=== PATIENT | male | born 1955 | race Caucasian/White ===

== ENCOUNTER 2021-08-22 11:56 | Inpatient (IN) | payer OTHER, SELFPAY ==
[2021-08-22] VITALS (11 sets, daily range): BP systolic 91–154; BP diastolic 48–86; PULSE 96–131; RESP 16–33; TEMP 33.6–37.6; O2SAT 92–98; BMI 25.8; BMI 23.7
--- NOTE | ~2021-08-22 | CT_ITS ---
EXAMINATION: CT CHEST, ABDOMEN AND PELVIS WITH CONTRAST. CLINICAL INFORMATION: Abdominal pain, lactic acid elevated. COMPARISON: None TECHNIQUE: 5 mm thin axial and reformatted 3 mm thin sagittal and coronal images of chest, abdomen and pelvis were obtained following IV 100 and Omnipaque 350. DLP [id number] FINDINGS: Chest: Bilateral apical pleural thickening. There is a small bilateral apical pleural thickening is mild centrilobular emphysema. There is no acute consolidation, pulmonary nodule or mass. There is minimal subpleural atelectatic changes left lung base. Mediastinum: The thyroid lobes are symmetrical and normal. Central trachea and the bronchi widely patent. Heart size and the great vessels are normal caliber. There are several shotty lymph nodes in the pretracheal and paratracheal space with largest lymph node measuring 1.2 cm pretracheal space. There are coronary artery calcifications. The heart size is normal. No pericardial effusion seen. Pleura: There is calcified pleural plaque. No pleural effusion or thickening seen. There is no pneumothorax. Axilla: There are small shotty bilateral axillary lymph nodes with largest lymph node measures 1.2 cm in right axillary space and 1.3 cm left axillary space. The chest wall appears unremarkable. Liver: The liver is lobulated but normal size. There is small linear lucency seen in the left hepatic lobe suggestive of either underlying biliary duct dilatation or multiple lesions. The right hepatic lobe is normal. The gallbladder is nondistended with moderate kervin gallbladder fluid collection. There are no radiopaque gallstones. The CBD measures a 1 cm. Spleen: Unremarkable. Pancreas: Unremarkable. Kidneys and ureters: Both kidneys are normal size, shape and position. No radiopaque renal calculi or hydronephrosis seen. There is mild bilateral perinephric stranding. Adrenal glands: Unremarkable. Abdominal aorta: There is mild arthroscopic calcification abdominal aorta without aneurysmal dilatation. GI tract: There is moderate stool and gas seen throughout the colon without any significant distention. The small bowel loops are normal caliber. No free air or free fluid seen. Appendix is normal caliber. Pelvis: The bladder is distended. Prostate is normal size. No free fluid seen. Osseous structures: There are degenerative disc changes L4-L5 and L5-S1 disc levels with moderate ventral and mild posterior spondylosis. A large bridging osteophyte is seen at the L5-S1 disc level. There is small Tarlov cyst posterior to S3 vertebra. CT/CT abdomen pelvis w con IMPRESSION: Centrilobular emphysema without acute process. There is minimal subpleural atelectatic changes left lung base. There are calcified pleural plaques from asbestosis exposure. Lobulated liver contour with abnormal appearing left hepatic lobe. There are multiple hypodense lesions question dilated ducts versus small micronodules. Recommend ultrasound. The CBD measures 1 cm. Abnormal gallbladder. Question acalculus cholecystitis. Correlate with ultrasound.
--- NOTE | ~2021-08-22 | US_ITS ---
EXAMINATION: US ABDOMEN LIMITED, gallbladder only CLINICAL INFORMATION: Right upper quadrant pain. COMPARISON: None TECHNIQUE: Real-time imaging of the gallbladder. FINDINGS: GALLBLADDER: The gallbladder wall is thickened to a diameter of 1.1 cm. There is fluid in the wall. There is a small volume of pericholecystic fluid is well. Positive ultrasound Teran's sign. No gallstones present. Findings consistent with an acalculus acute cholecystitis. US/US abdomen limited IMPRESSION: Abnormal gallbladder wall without gallstones. Findings consistent with acalculus cholecystitis. HIDA scan may be helpful for further evaluation.
--- NOTE | ~2021-08-22 | MR_ITS ---
EXAMINATION: MR ABDOMEN WITHOUT AND WITH CONTRAST CLINICAL INFORMATION: Acalculus cholecystitis. CBD stone. Liver abscess. COMPARISON: Ultrasound and CT 08/22/2021 TECHNIQUE: MR abdomen was performed without and with use of 8 mL intravenous Gadavist gadolinium contrast. Postcontrast images are performed in multiphase dynamic sequences. Imaging was performed in 3 planes. Heavily T2-weighted MRCP images were obtained as well. FINDINGS: LUNG BASES: Sternal wires. Normal heart size. No pleural effusion. No focal consolidation. LIVER, GALLBLADDER, AND BILIARY TREE: Corresponding to the heterogeneous enhancement in the left lobe of the liver, there are numerous well-circumscribed clustered T2 bright homogeneous T2 hyperintense, hypointense T1, nonenhancing simple appearing cysts. There is no peripheral enhancement. No central dot sign . No definite communication with the biliary tree but they do seem to have a somewhat linear and branching appearance on sagittal and coronal images. There are a few subcentimeter cysts in the right lobe of the liver, scattered, far fewer than seen in the left lobe The gallbladder is diffusely thick-walled with pericholecystic fluid. There are T2 bright structures of the fundus of the gallbladder which may represent superimposed adenomyomatosis. Common bile duct is at most 6 mm in diameter, within normal limits. No filling defect to suggest choledocholithiasis. No intrahepatic biliary ductal dilatation. Small volume of ascites is seen adjacent the liver and in the right pararenal space. PANCREAS: Atrophic pancreas. The pancreatic duct is normal in caliber. No peripancreatic fluid or inflammatory changes. SPLEEN: Normal. ADRENAL GLANDS: Normal. KIDNEYS AND URETERS: The kidneys are normal in size, shape, and enhance symmetrically. No hydronephrosis. No perinephric stranding. GASTROINTESTINAL TRACT: Stomach and visualized small bowel are nondilated. No colonic wall thickening or distention. ABDOMINAL WALL: No significant hernia is appreciated. LYMPH NODES: No lymphadenopathy. VASCULAR: Unremarkable. OSSEOUS STRUCTURES: Marrow signal normal. MR/MR abdomen wo/w con IMPRESSION: The gallbladder is circumferentially thick-walled with adjacent pericholecystic fluid. Acalculous cholecystitis remains a consideration. No biliary ductal dilatation. No choledocholithiasis. In addition to a few scattered subcentimeter cysts in the right lobe of liver, there is a cluster of numerous cystic structures in the superior aspect of the left lobe of liver. These do not appear to communicate with the biliary tree suggesting clustered cysts or biliary hamartomas rather than a biliary etiology. These do not have ill-defined margins or peripheral enhancement that would be expected for microabscesses.
[2021-08-22 12:21] LABS: Glucose, Whole Blood 323 mg/dL (60-115)
--- NOTE | 2021-08-22 12:22 | ECG_ITS ---
Test Reason : ABDOMINAL PAIN Blood Pressure : / mmHG Vent. Rate : 091 BPM Atrial Rate : 091 BPM P-R Int : 162 ms QRS Dur : 128 ms QT Int : 408 ms P-R-T Axes : 063 -21 095 degrees QTc Int : 501 ms Normal sinus rhythm Non-specific intra-ventricular conduction block Nonspecific T wave abnormality Abnormal ECG No previous ECGs available Referred By: Robert Biswas Electronically Signed By:JUDY ALEXANDRE
--- NOTE | 2021-08-22 12:44 | ED.ABDPAIN ---
HPI - Abdominal Pain General Chief Complaint: Abdominal Pain Stated Complaint: ABD PAIN X'S 2 DAYS Time Seen by Provider: 08/22/21 12:14 Source: patient Mode of arrival: ambulatory Limitations: no limitations History of Present Illness HPI narrative: Patient past medical history of alcohol abuse and diabetes and GERD presents to the ED to ED for mid abdominal pain with nausea vomiting for 2 days. Denies any diarrhea, lower abdominal pain, fever, or chills. Patient denies any dysuria, hematuria, flank pain, chest pain, shortness of breath. Patient states he is vaccinated against COVID. Patient denies any URI symptoms MD elicited complaint: abdominal pain Related Data Allergies Allergy/AdvReac Type Severity Reaction Status Date / Time No Known Allergies Allergy Verified 08/22/21 12:22 Review of Systems Review of Systems Yes all other systems are reviewed and are negative Constitutional: Reports as per HPI and Reports no additional constitutional complaints Eyes: Reports as per HPI and Reports no additional eye complaints Reports system reviewed and no additional complaints, except as documented and Reports as per HPI Cardiovascular: Reports as per HPI and Reports no additional cardiovascular complaints Respiratory: Reports as per HPI and Reports no additional respiratory complaints Gastrointestinal: Reports as per HPI, Reports no additional gastrointestinal complaints and Reports abdominal pain Musculoskeletal: Reports no additional musculoskeletal complaints and Reports as per HPI Reports system reviewed and no additional complaints, except as documented and Reports as per HPI Psychiatric: Reports no additional psychiatric complaints and Reports as per HPI Physical Exam Vital Signs: Vital Signs: Last Vital Signs Temp 98.2 F 08/22/21 16:23 Pulse 131 H 08/22/21 18:15 Resp 17 08/22/21 16:23 BP 139/77 08/22/21 14:46 Pulse Ox 95 08/22/21 16:23 Body Mass Index 25.8 Const: General: cooperative, healthy appearing, comfortable, no acute distress, well developed, alert, awake and Physically active Orientation/consciousness: patient oriented x3 HENMT: Head: Yes normal to inspection, Yes No palpable skull fracture present, Yes normocephalic, Yes atraumatic and No abrasion Eyes: General: appearance normal, both eyes and all related structures Neck: Neck: Yes normal visual inspection, Yes full ROM, Yes no lymphadenopathy, Yes no meningeal signs, Yes trachea midline, Yes supple and No tender Chest: Chest palpation & inspection: normal inspection of the chest and normal palpation of entire chest wall Resp: Effort & Inspection: normal respiratory effort and able to speak in complete sentences Cardio: Jugular venous distension: no JVD Heart sounds: S1 normal heart sound present and S2 normal heart sound present GI: Inspection: Yes normal to inspection and No abdominal wall ecchymosis Palpation (GI): Soft to palpation, not firm, Tenderness to palpation present (GI) in the epigastrum; Negative for not in the LLQ, not in the RLQ, not in the LUQ, not in the RUQ, not at McBurney's point, not periumbilically, not suprapubicly, Teran's sign negative, obturator sign negative, psoas sign negative, with no rebound tenderness and Rovsing's sign negative, no guarding and not rigid : General: No CVA tenderness and Yes no CVA tenderness Back/Spine/Pelvis: Back: no CVA tenderness, No CVA tenderness and No back tenderness Skin: General skin exam: no rashes or lesions noted and elasticity normal Neuro: General: patient oriented x3, gait normal, no meningeal signs and CN's II-XI intact bilaterally Cranial nerves: Yes CN's II-XII intact bilaterally Extrem: General: Yes normal to inspection and Yes full ROM Psych: Appearance: grossly normal, well kempt and not disheveled Course Course Course Narrative: Patient hypothermic. By accident another patient's ABG results were placed in Mr. Castaneda records. This is not his ABG results. Patient is hypothermic. ABG results belong to [facility]. Patient is hypothermic with abdominal pain. Patient will be treated as septic. Labs including blood culture lactate acid ordered. Zosyn ordered. Fluids ordered. Patient placed on Liza Hugger. Rectal exam patient is 92 point F. EKG negative STEMI Reevaluation(s) Reevaluation #1: Patient will hypothermic, septic, elevated lactate, elevated white blood cell count. Patient was given Zosyn and sent for CT scan. Time: 13:12 Reevaluation #2: Spoke with Dr. Bowling of surgery states presently does no surgical indication and this may be more cholangitis but patient will need hospital admission to medicine with GI consult. Spoke with Dr. Arshad of gastroenterology who recommends MRI/MRCP of the abdomen to rule out any liver abscesses or common bile duct dilatation. Patient no longer hypothermic. Patient tachycardic. Other bag of fluid ordered. Patient is not in any distress. Time: 18:47 MDM - Abdominal Pain MDM Narrative Medical decision making narrative: Acalculous cholecystitis Lab Data Result diagrams: 08/22/21 13:12 08/22/21 13:12 Labs: Lab Results 08/22/21 08/22/21 08/22/21 Range/Units 12:06 12:11 12:17 WBC (4.8-10.8) X10*3/uL RBC (4.60-5.80) X10*6/uL Hgb (14.0-18.0) g/dl Hct (42-52) % MCV (80-98) fL MCH (27.0-33.0) pg MCHC (31.0-36.0) g/dl RDW (11.0-16.0) % Plt Count (160-400) X10*3/uL MPV Immature Gran % (Auto) (0.0-0.4) % Neut % (Auto) (45-73) % Lymph % (Auto) (20-40) % [place] % (Auto) (2-11) % Eos % (Auto) (0-4) % Baso % (Auto) (0-2) % Lymph # (Auto) (1.2-4.9) X10*3/uL [place] # (Auto) (0.1-1.2) X10*3/uL Eos # (Auto) (0.0-0.4) X10*3/uL Baso # (Auto) (0.0-0.2) X10*3/uL Abs Immat Gran (auto) (0.00-0.03) X10*3/uL Absolute Neuts (auto) (2.0-8.3) X10*3/uL Absolute Nucleated RBC (0.0-0.012) X10*3/uL Nucleated RBC % (auto) (0.0-0.2) /100WBC Smear Tech's Comments O2 Saturation Cancelled TNP ABG pH at Pt Temp Cancelled TNP ABG pH (Temp Correct) Cancelled TNP ABG pCO2 at Pt Temp Cancelled TNP ABG pCO2 (Temp Corrct Cancelled TNP ABG pO2 at Pt Temp Cancelled TNP ABG pO2 (Temp Correct Cancelled TNP ABG HCO3 Cancelled TNP ABG Base Excess (Actual) Cancelled TNP Sodium Potassium Chloride Carbon Dioxide Anion Gap BUN Creatinine Estim Creat Clear Calc Estimated GFR POC Glucose 323 H (60-115) mg/dL Random Glucose Lactic Acid (0.5-2.0) mmol/L Lactic Acid Fup @ 2Hr (0.5-2.0) mmol/L Calcium Magnesium (1.6-2.6) mg/dL Total Bilirubin Direct Bilirubin AST ALT Alkaline Phosphatase Troponin I High Sens (<3.5-35.0) ng/L B-Natriuretic Peptide (<100) pg/mL Total Protein Albumin Lipase Urine Color Urine Appearance Urine pH (5.0-8.0) Ur Specific [place] (1.005-1.025) Urine Protein (NEG-TRACE) MG/DL Urine Glucose (UA) (NEG) MG/DL Urine Ketones (NEG) MG/DL Urine Blood (NEG) Urine Nitrite (NEG) Ur Leukocyte Esterase (NEG) Urine RBC (0) /HPF Urine WBC (0-4) /HPF Ur Squamous Epith Cells /LPF Amorphous Sediment /LPF Urine Bacteria /LPF Acetone, Qual Coronavirus (PCR) (Negative) Influenza Type A (PCR) (Negative) Influenza Type B (PCR) (Negative) RSV RNA Qual (PCR) (Negative) 08/22/21 08/22/21 08/22/21 Range/Units 13:12 13:12 13:12 WBC 27.5 H (4.8-10.8) X10*3/uL RBC 5.20 (4.60-5.80) X10*6/uL Hgb 16.7 (14.0-18.0) g/dl Hct 47.8 (42-52) % MCV 91.9 (80-98) fL MCH 32.1 (27.0-33.0) pg MCHC 34.9 (31.0-36.0) g/dl RDW 12.9 (11.0-16.0) % Plt Count 176 (160-400) X10*3/uL MPV Not Reportable Immature Gran % (Auto) 0.6 H (0.0-0.4) % Neut % (Auto) 88.0 H (45-73) % Lymph % (Auto) 4.1 L (20-40) % [place] % (Auto) 7.0 (2-11) % Eos % (Auto) 0.0 (0-4) % Baso % (Auto) 0.3 (0-2) % Lymph # (Auto) 1.1 L (1.2-4.9) X10*3/uL [place] # (Auto) 1.9 H (0.1-1.2) X10*3/uL Eos # (Auto) 0.0 (0.0-0.4) X10*3/uL Baso # (Auto) 0.1 (0.0-0.2) X10*3/uL Abs Immat Gran (auto) 0.17 H (0.00-0.03) X10*3/uL Absolute Neuts (auto) 24.2 H (2.0-8.3) X10*3/uL Absolute Nucleated RBC 0.000 (0.0-0.012) X10*3/uL Nucleated RBC % (auto) 0.0 (0.0-0.2) /100WBC Smear Tech's Comments VERIFIED O2 Saturation ABG pH at Pt Temp ABG pH (Temp Correct) ABG pCO2 at Pt Temp ABG pCO2 (Temp Corrct ABG pO2 at Pt Temp ABG pO2 (Temp Correct ABG HCO3 ABG Base Excess (Actual) Sodium Cancelled Potassium Cancelled Chloride Cancelled Carbon Dioxide Cancelled Anion Gap Cancelled BUN Cancelled Creatinine Cancelled Estim Creat Clear Calc Cancelled Estimated GFR Cancelled POC Glucose (60-115) mg/dL Random Glucose Cancelled Lactic Acid (0.5-2.0) mmol/L Lactic Acid Fup @ 2Hr (0.5-2.0) mmol/L Calcium Cancelled Magnesium (1.6-2.6) mg/dL Total Bilirubin Cancelled Direct Bilirubin Cancelled AST Cancelled ALT Cancelled Alkaline Phosphatase Cancelled Troponin I High Sens 9.2 (<3.5-35.0) ng/L B-Natriuretic Peptide 43 (<100) pg/mL Total Protein Cancelled Albumin Cancelled Lipase Cancelled Urine Color Urine Appearance Urine pH (5.0-8.0) Ur Specific [place] (1.005-1.025) Urine Protein (NEG-TRACE) MG/DL Urine Glucose (UA) (NEG) MG/DL Urine Ketones (NEG) MG/DL Urine Blood (NEG) Urine Nitrite (NEG) Ur Leukocyte Esterase (NEG) Urine RBC (0) /HPF Urine WBC (0-4) /HPF Ur Squamous Epith Cells /LPF Amorphous Sediment /LPF Urine Bacteria /LPF Acetone, Qual Cancelled Coronavirus (PCR) (Negative) Influenza Type A (PCR) (Negative) Influenza Type B (PCR) (Negative) RSV RNA Qual (PCR) (Negative) 08/22/21 08/22/21 08/22/21 Range/Units 13:12 13:12 13:12 WBC (4.8-10.8) X10*3/uL RBC (4.60-5.80) X10*6/uL Hgb (14.0-18.0) g/dl Hct (42-52) % MCV (80-98) fL MCH (27.0-33.0) pg MCHC (31.0-36.0) g/dl RDW (11.0-16.0) % Plt Count (160-400) X10*3/uL MPV Immature Gran % (Auto) (0.0-0.4) % Neut % (Auto) (45-73) % Lymph % (Auto) (20-40) % [place] % (Auto) (2-11) % Eos % (Auto) (0-4) % Baso % (Auto) (0-2) % Lymph # (Auto) (1.2-4.9) X10*3/uL [place] # (Auto) (0.1-1.2) X10*3/uL Eos # (Auto) (0.0-0.4) X10*3/uL Baso # (Auto) (0.0-0.2) X10*3/uL Abs Immat Gran (auto) (0.00-0.03) X10*3/uL Absolute Neuts (auto) (2.0-8.3) X10*3/uL Absolute Nucleated RBC (0.0-0.012) X10*3/uL Nucleated RBC % (auto) (0.0-0.2) /100WBC Smear Tech's Comments O2 Saturation ABG pH at Pt Temp ABG pH (Temp Correct) ABG pCO2 at Pt Temp ABG pCO2 (Temp Corrct ABG pO2 at Pt Temp ABG pO2 (Temp Correct ABG HCO3 ABG Base Excess (Actual) Sodium 138 Potassium 3.6 Chloride 97 Carbon Dioxide 15 L Anion Gap 30 H BUN 20 H Creatinine 1.02 Estim Creat Clear Calc 68.9 Estimated GFR > 60 POC Glucose (60-115) mg/dL Random Glucose 327 H Lactic Acid 4.1 H* (0.5-2.0) mmol/L Lactic Acid Fup @ 2Hr (0.5-2.0) mmol/L Calcium 10.0 Magnesium 1.7 (1.6-2.6) mg/dL Total Bilirubin 3.1 H Direct Bilirubin 2.6 H AST 1109 H ALT 558 H Alkaline Phosphatase 225 H Troponin I High Sens (<3.5-35.0) ng/L B-Natriuretic Peptide (<100) pg/mL Total Protein 7.5 Albumin 4.4 Lipase 1003 H Urine Color Urine Appearance Urine pH (5.0-8.0) Ur Specific [place] (1.005-1.025) Urine Protein (NEG-TRACE) MG/DL Urine Glucose (UA) (NEG) MG/DL Urine Ketones (NEG) MG/DL Urine Blood (NEG) Urine Nitrite (NEG) Ur Leukocyte Esterase (NEG) Urine RBC (0) /HPF Urine WBC (0-4) /HPF Ur Squamous Epith Cells /LPF Amorphous Sediment /LPF Urine Bacteria /LPF Acetone, Qual Small H Coronavirus (PCR) NEGATIVE (Negative) Influenza Type A (PCR) NEGATIVE (Negative) Influenza Type B (PCR) NEGATIVE (Negative) RSV RNA Qual (PCR) NEGATIVE (Negative) 08/22/21 08/22/21 Range/Units 14:04 15:54 WBC (4.8-10.8) X10*3/uL RBC (4.60-5.80) X10*6/uL Hgb (14.0-18.0) g/dl Hct (42-52) % MCV (80-98) fL MCH (27.0-33.0) pg MCHC (31.0-36.0) g/dl RDW (11.0-16.0) % Plt Count (160-400) X10*3/uL MPV Immature Gran % (Auto) (0.0-0.4) % Neut % (Auto) (45-73) % Lymph % (Auto) (20-40) % [place] % (Auto) (2-11) % Eos % (Auto) (0-4) % Baso % (Auto) (0-2) % Lymph # (Auto) (1.2-4.9) X10*3/uL [place] # (Auto) (0.1-1.2) X10*3/uL Eos # (Auto) (0.0-0.4) X10*3/uL Baso # (Auto) (0.0-0.2) X10*3/uL Abs Immat Gran (auto) (0.00-0.03) X10*3/uL Absolute Neuts (auto) (2.0-8.3) X10*3/uL Absolute Nucleated RBC (0.0-0.012) X10*3/uL Nucleated RBC % (auto) (0.0-0.2) /100WBC Smear Tech's Comments O2 Saturation ABG pH at Pt Temp ABG pH (Temp Correct) ABG pCO2 at Pt Temp ABG pCO2 (Temp Corrct ABG pO2 at Pt Temp ABG pO2 (Temp Correct ABG HCO3 ABG Base Excess (Actual) Sodium Potassium Chloride Carbon Dioxide Anion Gap BUN Creatinine Estim Creat Clear Calc Estimated GFR POC Glucose (60-115) mg/dL Random Glucose Lactic Acid (0.5-2.0) mmol/L Lactic Acid Fup @ 2Hr 2.0 (0.5-2.0) mmol/L Calcium Magnesium (1.6-2.6) mg/dL Total Bilirubin Direct Bilirubin AST ALT Alkaline Phosphatase Troponin I High Sens (<3.5-35.0) ng/L B-Natriuretic Peptide (<100) pg/mL Total Protein Albumin Lipase Urine Color YELLOW Urine Appearance CLEAR Urine pH 5.5 (5.0-8.0) Ur Specific [place] 1.010 (1.005-1.025) Urine Protein NEG (NEG-TRACE) MG/DL Urine Glucose (UA) >=1000 H (NEG) MG/DL Urine Ketones 15 (NEG) MG/DL Urine Blood NEG (NEG) Urine Nitrite NEG (NEG) Ur Leukocyte Esterase NEG (NEG) Urine RBC 0 (0) /HPF Urine WBC 0 (0-4) /HPF Ur Squamous Epith Cells TRACE /LPF Amorphous Sediment 1+ /LPF Urine Bacteria NONE /LPF Acetone, Qual Coronavirus (PCR) (Negative) Influenza Type A (PCR) (Negative) Influenza Type B (PCR) (Negative) RSV RNA Qual (PCR) (Negative) ECG Data Interpretation: Normal sinus rhythm. Ventricular rate 91. Pr interval 162. QRS 128. QTC 501. Negative STEMI Critical Care Time Critical Care Time Critical Care Time: Yes Total Critical Care Time: 60 Attestation: Sepsis. Fluids ordered. Zosyn ordered. Surgery and gastroenterology consult ordered. Patient sent for MRI. Discharge Plan Discharge Clinical Impression: Acute acalculous cholecystitis Patient Disposition: Admitted As Inpatient [facility] Past Medical History Medical History (Updated 08/22/21 @ 18:48 by MICHAEL Martin) Diabetes Social History Social History Patient Tobacco Use Status: Current everyday Tobacco user Use of substances other than those prescribed or required for medical reasons: No Advance Directives: No Advance Directives Information Provided: No
[2021-08-22 13:25] LABS: Basophils Absolute Auto 0.1 X10*3/uL (0.0-0.2); Basophils Percent Auto 0.3 % (0-2); Hematocrit 47.8 % (42-52); Hemoglobin 16.7 g/dl (14.0-18.0); Imm Gran Abs Auto 0.17 X10*3/uL (0.00-0.03); Imm Gran Pct Auto 0.6 % (0.0-0.4); Lymphocytes Absolute Auto 1.1 X10*3/uL (1.2-4.9); Lymphocytes Percent Auto 4.1 % (20-40); MANUAL DIFF FLAG SCAN; Mean Corpuscular HGB Conc 34.9 g/dl (31.0-36.0); Mean Corpuscular Hemoglobin 32.1 pg (27.0-33.0); Mean Corpuscular Volume 91.9 fL (80-98); Monocytes Absolute Auto 1.9 X10*3/uL (0.1-1.2); Neutrophils Absolute Auto 24.2 X10*3/uL (2.0-8.3); PLT CLUMP 1; Red Cell Distribution Width 12.9 % (11.0-16.0); SCAN SMEAR FLAG 1
[2021-08-22] MEDS: Piperacillin Sodium/Tazobactam 3.375 GM in 0.9 % Sodium Chloride 50 ML IV ×2 (13:29→21:07)
[2021-08-22] MEDS: 0.9 % Sodium Chloride 1,000 ML 999 ML IV ×3 (13:29→18:15)
[2021-08-22 13:49] LABS: Platelet Count 176 X10*3/uL (160-400); SLIDE REVIEW VERIFIED; White Blood Count 27.5 X10*3/uL (4.8-10.8)
[2021-08-22 13:51] LABS: B Type Natriuretic Peptide 43 pg/mL (<100); Troponin-I High Sensitivity 9.2 ng/L (<3.5-35.0)
[2021-08-22 13:52] LABS: Alanine Aminotransferase 558 U/L (0-40); Albumin Level 4.4 g/dL (3.5-5.0); Alkaline Phosphatase 225 U/L (39-117); Anion Gap 30 (12-20); Aspartate Amino Transferase 1109 U/L (5-37); Bilirubin Direct 2.6 mg/dL (0.0-0.5); Bilirubin Total 3.1 mg/dL (0.0-1.0); Blood Urea Nitrogen 20 mg/dL (9-16); Carbon Dioxide 15 mmol/L (22-29); Chloride 97 mmol/L (96-108); Creatinine Clr Calc Pharmacy 68.9; Estimated Glomerular Filt Rate > 60; Glucose Random 327 mg/dL (60-115); Lipase 1003 U/L (8-78); Magnesium 1.7 mg/dL (1.6-2.6); Potassium 3.6 mmol/L (3.3-5.1); Sodium 138 mmol/L (135-145); Total Protein 7.5 g/dL (6.5-8.0)
[2021-08-22 13:55] LABS: Lactic Acid 4.1 mmol/L (0.5-2.0)
[2021-08-22 13:57] LABS: Acetone, serum QL Small (Negative)
[2021-08-22] MEDS: 0.9 % Sodium Chloride 2,313.33 ML 2313.33 ML IV (14:06)
[2021-08-22 14:31] LABS: Appearance Urine CLEAR; Color Urine YELLOW; Glucose Urine UA >=1000 MG/DL (NEG); Leukocyte Esterase Urine NEG (NEG); Nitrite Urine NEG (NEG); PH 5.5 (5.0-8.0); Urine Blood NEG (NEG); Urine Ketones 15 MG/DL (NEG); Urine Protein NEG (NEG-TRACE)
[2021-08-22 14:34] LABS: Influenza A PCR NEGATIVE (Negative); Influenza B PCR NEGATIVE (Negative); Resp Syncy Virus RNA Qual PCR NEGATIVE (Negative); SARS COV2 PCR INHOUSE NEGATIVE (Negative)
[2021-08-22 14:55] LABS: Amorphous Sediment Urine 1+ /LPF; RBC Urine 0 /HPF (0); Squamous Epithelial Cell Urine TRACE /LPF; WBC Urine 0 /HPF (0-4)
[2021-08-22] MEDS: iohexoL 350 MG/ML 100 ML INFUS..BTL IV (14:58)
[2021-08-22 15:18] LABS: Reflex Lactate? Lactic Acid Added
[2021-08-22] MEDS: ondansetron HCL 4 MG/2 ML VIAL IVPUSH (17:05)
--- NOTE | 2021-08-22 18:15 | PC.NURSE ---
PA aware of elevated HR
--- NOTE | 2021-08-22 19:28 | P.HPHOSP_ITS ---
History of Present Illness Date of Service: 08/22/21 Attending physician on admission: Oliver Cheng Chief Complaint: Abdominal pain 65-year-old gentleman with past medical history significant for diabetes mellitus, hypertension and coronary artery bypass graft 15 years ago presented to [facility] with right-sided abdominal pain that started couple weeks ago pain improved but then reoccurred with worsened pain in last 2-3 days associated with sweating, nausea and vomiting decreased by mouth intake, unable to keep water down, in the emergency room patient noted to have significantly elevated LFTs, elevated lipase and leukocytosis CT abdomen and pelvis consistent with acute acalculous cholecystitis, pancreas unremarkable, abdominal ultrasound also showed changes consistent with cholecystitis, at present patient complaining of persistent abdominal pain and nausea and dry mouth, he denies chest pain, palpitations, shortness of breathy on arrival to emergency room patient was noted to be hypothermic Tachycardic, and tachypneic patient received several IV boluses BP remains s table patient will be admitted to medical floor with a diagnosis of sepsis likely related to gallstone pancreatitis question patient passed stone. Review of Systems Review of Systems: General no headache no dizziness ,sweating. CVS no chest pain, no palpitation. Respiratory no cough no sob. Gastrointestinal nausea ,vomiting, abdominal pain no urinary urgency or frequency Yes all other systems are reviewed and are negative [facility] Medical History Coronary artery disease Diabetes Hypercholesterolemia Hypertension Pertinent family history: Father had heart disease, and mom had diabetes Surgical History History of coronary artery bypass graft x 1 Social History Household Members: None Housing: Apartment Do you presently have visiting nurse or other home services: No Unable to assess alcohol history related to: Unknown Patient Tobacco Use Status: Former Tobacco user Quit Date: 08/19/2021 Tobacco use type: Cigarette Cigarette Packs Per Day: 1 Cigarettes Per Day: 20 Years Smoked: 40 service: Yes Current occupational status: retired Recent Out of Country Travel Within the Last 8 Weeks: No Meds Allergies Allergy/AdvReac Type Severity Reaction Status Date / Time No Known Allergies Allergy Verified 08/22/21 12:22 Active Medications: Current Medications Dextrose (Dextrose 50 % 25 Gm/50 Ml Vial) 25 gm IVPUSH Q15M PRN; Protocol PRN Reason: per Hypoglycemia Standing Ord. Glucose (Glucose Gel 15 Gm Gel..Gram.) 15 gm PO Q15M PRN; Protocol PRN Reason: per Hypoglycemia Standing Ord. Piperacillin Sod/Tazobactam (Sod 3.375 gm/ Sodium Chloride) 50 mls @ 100 mls/hr IV Q6H [place] Sodium Chloride (Ns) 1,000 mls @ 150 mls/hr IVCONT .Q6H40M [facility] Insulin Human Lispro (Insulin Lispro 100 Unit/Ml 3 Ml Vial) 0 unit SUBCUT Q6H [facility]; Protocol Melatonin (Melatonin 3 Mg Tablet) 3 mg PO BEDTIME PRN PRN Reason: Insomnia Morphine Sulfate (Morphine Sulfate 4 Mg/Ml Cartridge) 3 mg IVPUSH Q4H PRN; Protocol PRN Reason: Pain, Severe (Pain Scale 7-10) Ondansetron HCl (Ondansetron Hcl 4 Mg/2 Ml Vial) 4 mg IVPUSH Q8H PRN PRN Reason: Nausea and Vomiting Sodium Chloride (0.9 % Sodium Chloride Flush 3 Ml Syringe) 3 ml IVFLUSH QSHIFT [facility] Home Medications Medication Instructions Recorded Confirmed Last Taken Type albuterol sulfate 90 mcg/actuation 2 puff INHALATION Q6H PRN 08/22/21 08/22/21 Unknown History aerosol inhaler aspirin 81 mg chewable tablet 81 mg PO DAILY 08/22/21 08/22/21 Unknown History atorvastatin 80 mg tablet 80 mg PO BEDTIME 08/22/21 08/22/21 Unknown History empagliflozin 25 mg tablet 12.5 mg PO DAILY 08/22/21 08/22/21 Unknown History insulin glargine 100 unit/mL (3 40 unit SUBCUT BEDTIME 08/22/21 08/22/21 Unknown History mL) subcutaneous pen lisinopril 2.5 mg tablet 2.5 mg PO DAILY 08/22/21 08/22/21 Unknown History metformin 1,000 mg tablet 1,000 mg PO BID 08/22/21 08/22/21 Unknown History mirtazapine 30 mg tablet 30 mg PO BEDTIME 08/22/21 08/22/21 Unknown History nicotine (polacrilex) 4 mg buccal 4 mg BUCCAL Q2H PRN 08/22/21 08/22/21 Unknown History lozenge omeprazole 20 mg capsule,delayed 20 mg PO DAILY 08/22/21 08/22/21 Unknown History release ramelteon 8 mg tablet 8 mg PO BEDTIME 08/22/21 08/22/21 Unknown History semaglutide 1 mg/dose (4 mg/3 mL) 1 mg SUBCUT QWEEK 08/22/21 08/22/21 Unknown History subcutaneous pen injector thiamine HCl (vitamin B1) 100 mg 100 mg PO DAILY 08/22/21 08/22/21 Unknown History tablet tiotropium bromide 2.5 2 puff INHALATION DAILY 08/22/21 08/22/21 Unknown History mcg/actuation mist for inhalation Physical Exam Vital Signs and Narrative: Vital Signs: Last Vital Signs Temp 99.6 F 08/22/21 19:08 Pulse 119 H 08/22/21 19:08 Resp 33 H 08/22/21 19:08 BP 126/61 08/22/21 19:08 Pulse Ox 92 08/22/21 19:08 Body Mass Index 25.8 General awake alert x3, no acute distress. Eyes icteric sclerae Neck supple no JVD. CVS regular rate rhythm, Respiratory lungs clear to auscultation, no respiratory distress, no wheeze, no rhonchi. Gastrointestinal abdomen obese, soft, tenderness right upper quadrant and mid abdomen, bowel sounds audible, no guarding , no rigidity. Extremities no clubbing cyanosis or edema. Good peripheral pulses Neuro nonfocal speech clear. Skin no rash Psych appropriate affect Results Labs CBC and Chem 7: 08/26/21 05:46 08/26/21 05:46 Labs: Laboratory Results - last 24 hr 08/22/21 08/22/21 08/22/21 12:06 12:11 12:17 MCV MCH MCHC RDW Plt Count MPV Immature Gran % (Auto) Neut % (Auto) Lymph % (Auto) [place] % (Auto) Eos % (Auto) Baso % (Auto) Lymph # (Auto) [place] # (Auto) Eos # (Auto) Baso # (Auto) Abs Immat Gran (auto) Absolute Neuts (auto) Absolute Nucleated RBC Nucleated RBC % (auto) Smear Tech's Comments O2 Saturation Cancelled TNP ABG pH at Pt Temp Cancelled TNP ABG pH (Temp Correct) Cancelled TNP ABG pCO2 at Pt Temp Cancelled TNP ABG pCO2 (Temp Corrct Cancelled TNP ABG pO2 at Pt Temp Cancelled TNP ABG pO2 (Temp Correct Cancelled TNP ABG HCO3 Cancelled TNP ABG Base Excess (Actual) Cancelled TNP Anion Gap Estim Creat Clear Calc Estimated GFR POC Glucose 323 H Random Glucose Lactic Acid Lactic Acid Fup @ 2Hr Calcium Magnesium Total Bilirubin Direct Bilirubin AST ALT Alkaline Phosphatase Troponin I High Sens B-Natriuretic Peptide Total Protein Albumin Lipase Urine Color Urine Appearance Urine pH Ur Specific [place] Urine Protein Urine Glucose (UA) Urine Ketones Urine Blood Urine Nitrite Ur Leukocyte Esterase Urine RBC Urine WBC Ur Squamous Epith Cells Amorphous Sediment Urine Bacteria Acetone, Qual Coronavirus (PCR) Influenza Type A (PCR) Influenza Type B (PCR) RSV RNA Qual (PCR) 08/22/21 08/22/21 08/22/21 13:12 13:12 13:12 MCV 91.9 MCH 32.1 MCHC 34.9 RDW 12.9 Plt Count 176 MPV Not Reportable Immature Gran % (Auto) 0.6 H Neut % (Auto) 88.0 H Lymph % (Auto) 4.1 L [place] % (Auto) 7.0 Eos % (Auto) 0.0 Baso % (Auto) 0.3 Lymph # (Auto) 1.1 L [place] # (Auto) 1.9 H Eos # (Auto) 0.0 Baso # (Auto) 0.1 Abs Immat Gran (auto) 0.17 H Absolute Neuts (auto) 24.2 H Absolute Nucleated RBC 0.000 Nucleated RBC % (auto) 0.0 Smear Tech's Comments VERIFIED O2 Saturation ABG pH at Pt Temp ABG pH (Temp Correct) ABG pCO2 at Pt Temp ABG pCO2 (Temp Corrct ABG pO2 at Pt Temp ABG pO2 (Temp Correct ABG HCO3 ABG Base Excess (Actual) Anion Gap Cancelled Estim Creat Clear Calc Cancelled Estimated GFR Cancelled POC Glucose Random Glucose Cancelled Lactic Acid Lactic Acid Fup @ 2Hr Calcium Cancelled Magnesium Total Bilirubin Cancelled Direct Bilirubin Cancelled AST Cancelled ALT Cancelled Alkaline Phosphatase Cancelled Troponin I High Sens 9.2 B-Natriuretic Peptide 43 Total Protein Cancelled Albumin Cancelled Lipase Cancelled Urine Color Urine Appearance Urine pH Ur Specific [place] Urine Protein Urine Glucose (UA) Urine Ketones Urine Blood Urine Nitrite Ur Leukocyte Esterase Urine RBC Urine WBC Ur Squamous Epith Cells Amorphous Sediment Urine Bacteria Acetone, Qual Cancelled Coronavirus (PCR) Influenza Type A (PCR) Influenza Type B (PCR) RSV RNA Qual (PCR) 08/22/21 08/22/21 08/22/21 13:12 13:12 13:12 MCV MCH MCHC RDW Plt Count MPV Immature Gran % (Auto) Neut % (Auto) Lymph % (Auto) [place] % (Auto) Eos % (Auto) Baso % (Auto) Lymph # (Auto) [place] # (Auto) Eos # (Auto) Baso # (Auto) Abs Immat Gran (auto) Absolute Neuts (auto) Absolute Nucleated RBC Nucleated RBC % (auto) Smear Tech's Comments O2 Saturation ABG pH at Pt Temp ABG pH (Temp Correct) ABG pCO2 at Pt Temp ABG pCO2 (Temp Corrct ABG pO2 at Pt Temp ABG pO2 (Temp Correct ABG HCO3 ABG Base Excess (Actual) Anion Gap 30 H Estim Creat Clear Calc 68.9 Estimated GFR > 60 POC Glucose Random Glucose 327 H Lactic Acid 4.1 H* Lactic Acid Fup @ 2Hr Calcium 10.0 Magnesium 1.7 Total Bilirubin 3.1 H Direct Bilirubin 2.6 H AST 1109 H ALT 558 H Alkaline Phosphatase 225 H Troponin I High Sens B-Natriuretic Peptide Total Protein 7.5 Albumin 4.4 Lipase 1003 H Urine Color Urine Appearance Urine pH Ur Specific [place] Urine Protein Urine Glucose (UA) Urine Ketones Urine Blood Urine Nitrite Ur Leukocyte Esterase Urine RBC Urine WBC Ur Squamous Epith Cells Amorphous Sediment Urine Bacteria Acetone, Qual Small H Coronavirus (PCR) NEGATIVE Influenza Type A (PCR) NEGATIVE Influenza Type B (PCR) NEGATIVE RSV RNA Qual (PCR) NEGATIVE 08/22/21 08/22/21 14:04 15:54 MCV MCH MCHC RDW Plt Count MPV Immature Gran % (Auto) Neut % (Auto) Lymph % (Auto) [place] % (Auto) Eos % (Auto) Baso % (Auto) Lymph # (Auto) [place] # (Auto) Eos # (Auto) Baso # (Auto) Abs Immat Gran (auto) Absolute Neuts (auto) Absolute Nucleated RBC Nucleated RBC % (auto) Smear Tech's Comments O2 Saturation ABG pH at Pt Temp ABG pH (Temp Correct) ABG pCO2 at Pt Temp ABG pCO2 (Temp Corrct ABG pO2 at Pt Temp ABG pO2 (Temp Correct ABG HCO3 ABG Base Excess (Actual) Anion Gap Estim Creat Clear Calc Estimated GFR POC Glucose Random Glucose Lactic Acid Lactic Acid Fup @ 2Hr 2.0 Calcium Magnesium Total Bilirubin Direct Bilirubin AST ALT Alkaline Phosphatase Troponin I High Sens B-Natriuretic Peptide Total Protein Albumin Lipase Urine Color YELLOW Urine Appearance CLEAR Urine pH 5.5 Ur Specific [place] 1.010 Urine Protein NEG Urine Glucose (UA) >=1000 H Urine Ketones 15 Urine Blood NEG Urine Nitrite NEG Ur Leukocyte Esterase NEG Urine RBC 0 Urine WBC 0 Ur Squamous Epith Cells TRACE Amorphous Sediment 1+ Urine Bacteria NONE Acetone, Qual Coronavirus (PCR) Influenza Type A (PCR) Influenza Type B (PCR) RSV RNA Qual (PCR) Imaging Radiologist's Impressions: Impressions Abdomen/Pelvis CT 08/22/21 13:54 IMPRESSION: Centrilobular emphysema without acute process. There is minimal subpleural atelectatic changes left lung base. There are calcified pleural plaques from asbestosis exposure. Lobulated liver contour with abnormal appearing left hepatic lobe. There are multiple hypodense lesions question dilated ducts versus small micronodules. Recommend ultrasound. The CBD measures 1 cm. Abnormal gallbladder. Question acalculus cholecystitis. Correlate with ultrasound. Chest CT 08/22/21 13:57 IMPRESSION: Centrilobular emphysema without acute process. There is minimal subpleural atelectatic changes left lung base. There are calcified pleural plaques from asbestosis exposure. Lobulated liver contour with abnormal appearing left hepatic lobe. There are multiple hypodense lesions question dilated ducts versus small micronodules. Recommend ultrasound. The CBD measures 1 cm. Abnormal gallbladder. Question acalculus cholecystitis. Correlate with ultrasound. Abdomen Ultrasound 08/22/21 16:03 IMPRESSION: Abnormal gallbladder wall without gallstones. Findings consistent with acalculus cholecystitis. HIDA scan may be helpful for further evaluation. Assessment and Plan (1) Pancreatitis: Status: Acute (2) Diabetes mellitus: Status: Acute (3) Hypertension: Status: Inactive (4) Coronary artery disease: Status: Inactive (5) Severe sepsis: Status: Acute (6) Metabolic acidosis: Status: Acute 65-year-old gentleman with past medical history significant for diabetes mellitus, hypertension, coronary artery disease , take aspirin 1 tablet a day daily presented to [facility] with on and off abdominal pain of 2 weeks duration, pain got worsened in last 48 hours therefore presented to hospital and diagnosed to have acalculous cholecystitis/pancreatitis with severe sepsis Severe sepsis Due to acute acalculous cholecystitis , received 30 mL/kg IV fluid, sepsis focused exam done Patient met sepsis criteria with tachycardia, tachypnea leukocytosis hypothermia and lactic acidosis Will place patient on IV Zosyn, follow 2 set of blood cultures , repeat CBC at a.m. Acalculous cholecystitis/pancreatitis Persistent abdominal pain significantly elevated LFTs Question patient had common bile duct stone not seen on imaging studies,also causing pancreatitis Denies alcohol use in last 15 years previously was a heavy alcoholic check triglyceride, abdominal ultrasound showed acalculous cholecystitis no evidence of common bile duct dilatation, CT abdomen and pelvis showed the same, normal pancreas Check MRCP question has common bile duct dilatation and stone, other possibilities is stenosis of pancreatic duct Will repeat LFTs, lipase, CBC,check hepatitis panel Obtain GI and surgical consult Continue supportive care with IV fluids, analgesics, antiemetics anion gap metabolic acidosis Due to lactic acidosis/ diabetes mellitus will check Tylenol level, salicylate level, repeat stat BMP, lactic acid improved from 4.1-2, will repeat BMP Diabetes mellitus elevated blood sugars in 300s patient not on home medication since patient is NPO will check point of care blood sugars and place on insulin sliding scale q.6 hours, check hemoglobin A1c History of hypertension, BP stable not on home medication follow BP closely. Tobacco use disorder Counseling done, place nicotine patch COPD no acute exacerbation DVT prophylaxis with compression boots Code status full code Quality Stroke Does the patient have a stroke diagnosis?: No VTE Prior VTE?: No VTE Risk Level:: Medical - moderate - high VTE Device Contraindication: N/A - Device Ordered VTE Drug Contraindication: Patient Refused
--- NOTE | 2021-08-22 19:32 | PC.NURSE ---
MRI CHECKLIST PERFORMED, PT CURRENTLY BEING TRANSPORTED TO MRI BY STAFF.
--- NOTE | 2021-08-22 20:15 | PHA.MEDREC ---
Pharmacy Consult ? Medication Reconciliation Pharmacy has completed the medication reconciliation. There are no remarkable issues for provider's [place]. [facility]. Patient confirms that he takes all medications picked up at the pharmacy. Mery Oseguera, PharmD
--- NOTE | 2021-08-22 20:43 | PC.NURSE ---
REPORT GIVEN TO RN ON FLOOR, PT READY FOR TRANSPORT.
[2021-08-22] MEDS: 0.9 % Sodium Chloride 1,000 ML 150 ML IVCONT (21:06)
[2021-08-22 21:15] LABS: Glucose, Whole Blood 110 mg/dL (60-115)
[2021-08-22 22:07] LABS: Alanine Aminotransferase 611 U/L (0-40); Albumin Level 3.8 g/dL (3.5-5.0); Alkaline Phosphatase 252 U/L (39-117); Anion Gap 21 (12-20); Aspartate Amino Transferase 841 U/L (5-37); Bilirubin Total 3.8 mg/dL (0.0-1.0); Blood Urea Nitrogen 17 mg/dL (9-16); Calcium 8.4 mg/dL (8.4-10.2); Carbon Dioxide 17 mmol/L (22-29); Chloride 107 mmol/L (96-108); Creatinine Clr Calc Pharmacy 79.8; Estimated Glomerular Filt Rate > 60; Glucose Random 111 mg/dL (60-115); Potassium 3.6 mmol/L (3.3-5.1); Salicylate < 5.0 mg/dL (15-30); Sodium 141 mmol/L (135-145); Total Protein 6.2 g/dL (6.5-8.0)
[2021-08-22] MEDS: Metoprolol Tartrate 12.5 MG HALFTAB PO (22:35)
[2021-08-22] MEDS: 0.9 % Sodium Chloride Flush 3 ML SYRINGE IVFLUSH (22:36)
[2021-08-22] MEDS: Melatonin 3 MG TABLET PO (22:36)
[2021-08-22] MEDS: Nicotine 14 MG PATCH.TD24 TRANSDERMA (22:36)
[2021-08-22 22:53] LABS: Acetaminophen LAB < 1 mcg/mL (<30)
[2021-08-23] VITALS (13 sets, daily range): BP systolic 91–121; BP diastolic 51–71; PULSE 68–100; RESP 12–22; TEMP 36–37.4; O2SAT 90–98
[2021-08-23] MEDS: Piperacillin Sodium/Tazobactam 3.375 GM in 0.9 % Sodium Chloride 50 ML IV ×3 (00:22→18:51)
[2021-08-23] MEDS: ondansetron HCL 4 MG/2 ML VIAL IVPUSH (04:04)
[2021-08-23] MEDS: 0.9 % Sodium Chloride 1,000 ML 150 ML IVCONT ×2 (04:04→08:51)
[2021-08-23 07:13] LABS: Glucose, Whole Blood 85 mg/dL (60-115)
[2021-08-23 07:28] LABS: Hematocrit 37.4 % (42-52); Hemoglobin 13.2 g/dl (14.0-18.0); Mean Corpuscular HGB Conc 35.3 g/dl (31.0-36.0); Mean Corpuscular Hemoglobin 32.1 pg (27.0-33.0); Red Blood Count 4.11 X10*6/uL (4.60-5.80); Red Cell Distribution Width 13.2 % (11.0-16.0); White Blood Count 24.7 X10*3/uL (4.8-10.8)
[2021-08-23 07:32] LABS: INTERNATIONAL NORM RATIO 1.5 (0.9-1.1); Prothrombin Time 17.5 SEC (9.9-13.0)
[2021-08-23 07:35] LABS: Estimated Average Glucose 197 mg/dL; Hemoglobin A1c % 8.5 %
[2021-08-23 07:52] LABS: Atypical Lymph Absolute Manual 0.2 x10*3/uL; Atypical Lymphs Percent Manual 1 % (0-6); Band Neutrophils Percent 19 % (3-5); Lymphocytes Absolute Manual 0.5 X10*3/uL (0.6-4.8); Lymphocytes Percent Manual 2 % (20-40); Monocytes Percent Manual 4 % (2-11); Neutrophils Percent Manual 74 % (45-73)
[2021-08-23 07:53] LABS: Platelet Estimate DECREASED (NORMAL); Platelet Morphology Comment NORMAL
[2021-08-23 07:54] LABS: Burr Cells 2+ (3-5) /OIF; RBC Morphology NOTED; Toxic Vacuolation PRESENT
[2021-08-23 07:58] LABS: Platelet Count 97 X10*3/uL (160-400)
[2021-08-23 07:59] LABS: Alanine Aminotransferase 571 U/L (0-40); Albumin Level 3.3 g/dL (3.5-5.0); Alkaline Phosphatase 226 U/L (39-117); Anion Gap 17 (12-20); Aspartate Amino Transferase 704 U/L (5-37); Bilirubin Total 4.7 mg/dL (0.0-1.0); Blood Urea Nitrogen 23 mg/dL (9-16); Carbon Dioxide 20 mmol/L (22-29); Chloride 108 mmol/L (96-108); Estimated Glomerular Filt Rate > 60; Glucose Random 94 mg/dL (60-115); Lipase 329 U/L (8-78); Potassium 3.5 mmol/L (3.3-5.1); Sodium 141 mmol/L (135-145); Total Protein 5.4 g/dL (6.5-8.0)
[2021-08-23 08:09] LABS: HBS Num1 > 1000.00 mIU/mL (0-7.99); HBc Num1 0.07 S/CO (0.00-0.79); Hepatitis B Core Antibody Nonreactive (Nonreactive); ~Hepatitis B Surface Antibody REACTIVE (Nonreactive); ~Hepatitis C Antibody Reactive (Nonreactive)
[2021-08-23 08:12] LABS: HBsAGNum1 0.16 S/CO (0.00-0.99); Hepatitis B Surface Antigen Negative (Negative)
[2021-08-23 08:23] LABS: Hepatitis A Antibody IgM 0.15 Index (0-0.79); ~Hepatitis A Antibody IgM Nonreactive (Nonreactive)
--- NOTE | 2021-08-23 08:42 | HO.PM.IMPN ---
Subjective Subjective Date of Service: 08/23/21 Interval History: no fever or hypothermia RUQ pain much improved no nausea no vomiting pt quit EtOH 15yr ago after his CABG denies any rest or exertional angina- can climb 2 flights of stairs without angina or equivalent Review of Systems Review of Systems: Yes all other systems are reviewed and are negative Physical Exam Vital Signs: Vital Signs: Last Vital Signs Temp 96.8 F 08/23/21 07:05 Pulse 91 08/23/21 07:05 Resp 16 08/23/21 07:05 BP 105/65 08/23/21 07:05 Pulse Ox 90 L 08/23/21 07:05 Body Mass Index 23.7 Gen: in no acute distress HEENT: sclera anicteric, moist mucus membranes Neck: supple Lungs: clear to auscultation bilaterally Heart: regular rate and rhythm, no murmurs Abd: soft, RUQ tenderness, +Teran sign Ext: no edema Skin: warm/well-perfused Neuro: alert and oriented x3, no focal findings Psych: appropriate affect Objective Data Active Medications Dextrose (Dextrose 50 % 25 Gm/50 Ml Vial) 25 gm IVPUSH Q15M PRN; Protocol PRN Reason: per Hypoglycemia Standing Ord. Glucose (Glucose Gel 15 Gm Gel..Gram.) 15 gm PO Q15M PRN; Protocol PRN Reason: per Hypoglycemia Standing Ord. Piperacillin Sod/Tazobactam (Sod 3.375 gm/ Sodium Chloride) 50 mls @ 100 mls/hr IV Q6H [facility] Last Infusion: 08/23/21 08:06 Dose: 0 mls/hr Documented by: ALLI Sodium Chloride (Ns) 1,000 mls @ 150 mls/hr IVCONT .Q6H40M [facility] Last Admin: 08/23/21 04:04 Dose: 150 mls/hr Documented by: BALWINDER Insulin Human Lispro (Insulin Lispro 100 Unit/Ml 3 Ml Vial) 0 unit SUBCUT Q6H [facility]; Protocol Last Admin: 08/23/21 08:06 Dose: Not Given Documented by: ALLI Non-Admin Reason: No Insulin Coverage Melatonin (Melatonin 3 Mg Tablet) 3 mg PO BEDTIME PRN PRN Reason: Insomnia Last Admin: 08/22/21 22:36 Dose: 3 mg Documented by: [email or web address] Morphine Sulfate (Morphine Sulfate 4 Mg/Ml Cartridge) 3 mg IVPUSH Q4H PRN; Protocol PRN Reason: Pain, Severe (Pain Scale 7-10) Nicotine (Nicotine 14 Mg Patch.Td24) 14 mg TRANSDERMA DAILY [facility] Last Admin: 08/22/21 22:36 Dose: 14 mg Documented by: BALWINDER Ondansetron HCl (Ondansetron Hcl 4 Mg/2 Ml Vial) 4 mg IVPUSH Q8H PRN PRN Reason: Nausea and Vomiting Last Admin: 08/23/21 04:04 Dose: 4 mg Documented by: BALWINDER Sodium Chloride (0.9 % Sodium Chloride Flush 3 Ml Syringe) 3 ml IVFLUSH QSHIFT [facility] Last Admin: 08/22/21 22:36 Dose: 3 ml Documented by: BALWINDER Labs CBC & Chem 7: 08/23/21 06:51 08/23/21 06:50 Labs: Laboratory Results - last 24 hr 08/22/21 08/22/21 08/22/21 12:06 12:11 12:17 MCV MCH MCHC RDW Plt Count MPV Immature Gran % (Auto) Neut % (Auto) Lymph % (Auto) Bremer % (Auto) Eos % (Auto) Baso % (Auto) Lymph # (Auto) Bremer # (Auto) Eos # (Auto) Baso # (Auto) Abs Immat Gran (auto) Absolute Neuts (auto) Absolute Nucleated RBC Nucleated RBC % (auto) Neutrophils % (Manual) Band Neutrophils % Lymphocytes % (Manual) Atypical Lymphs % (Man) Monocytes % (Manual) Abs Neuts (Manual) Lymphocytes # (Manual) Atyp Lymphs # (Manual) Monocytes # (Manual) Toxic Vacuolation Platelet Estimate Plt Morphology Comment RBC Morphology Yair Cells Smear Tech's Comments PT INR O2 Saturation Cancelled TNP ABG pH at Pt Temp Cancelled TNP ABG pH (Temp Correct) Cancelled TNP ABG pCO2 at Pt Temp Cancelled TNP ABG pCO2 (Temp Corrct Cancelled TNP ABG pO2 at Pt Temp Cancelled TNP ABG pO2 (Temp Correct Cancelled TNP ABG HCO3 Cancelled TNP ABG Base Excess (Actual) Cancelled TNP Anion Gap Estim Creat Clear Calc Estimated GFR POC Glucose 323 H Random Glucose Estimat Average Glucose Hemoglobin A1c % Lactic Acid Lactic Acid Fup @ 2Hr Calcium Magnesium Total Bilirubin Direct Bilirubin AST ALT Alkaline Phosphatase Troponin I High Sens B-Natriuretic Peptide Total Protein Albumin Lipase Urine Color Urine Appearance Urine pH Ur Specific [place] Urine Protein Urine Glucose (UA) Urine Ketones Urine Blood Urine Nitrite Ur Leukocyte Esterase Urine RBC Urine WBC Ur Squamous Epith Cells Amorphous Sediment Urine Bacteria Salicylates Acetaminophen Acetone, Qual Coronavirus (PCR) Influenza Type A (PCR) Influenza Type B (PCR) RSV RNA Qual (PCR) 08/22/21 08/22/21 08/22/21 13:12 13:12 13:12 MCV 91.9 MCH 32.1 MCHC 34.9 RDW 12.9 Plt Count 176 MPV Not Reportable Immature Gran % (Auto) 0.6 H Neut % (Auto) 88.0 H Lymph % (Auto) 4.1 L Bremer % (Auto) 7.0 Eos % (Auto) 0.0 Baso % (Auto) 0.3 Lymph # (Auto) 1.1 L Bremer # (Auto) 1.9 H Eos # (Auto) 0.0 Baso # (Auto) 0.1 Abs Immat Gran (auto) 0.17 H Absolute Neuts (auto) 24.2 H Absolute Nucleated RBC 0.000 Nucleated RBC % (auto) 0.0 Neutrophils % (Manual) Band Neutrophils % Lymphocytes % (Manual) Atypical Lymphs % (Man) Monocytes % (Manual) Abs Neuts (Manual) Lymphocytes # (Manual) Atyp Lymphs # (Manual) Monocytes # (Manual) Toxic Vacuolation Platelet Estimate Plt Morphology Comment RBC Morphology Yair Cells Smear Tech's Comments VERIFIED PT INR O2 Saturation ABG pH at Pt Temp ABG pH (Temp Correct) ABG pCO2 at Pt Temp ABG pCO2 (Temp Corrct ABG pO2 at Pt Temp ABG pO2 (Temp Correct ABG HCO3 ABG Base Excess (Actual) Anion Gap Cancelled Estim Creat Clear Calc Cancelled Estimated GFR Cancelled POC Glucose Random Glucose Cancelled Estimat Average Glucose Hemoglobin A1c % Lactic Acid Lactic Acid Fup @ 2Hr Calcium Cancelled Magnesium Total Bilirubin Cancelled Direct Bilirubin Cancelled AST Cancelled ALT Cancelled Alkaline Phosphatase Cancelled Troponin I High Sens 9.2 B-Natriuretic Peptide 43 Total Protein Cancelled Albumin Cancelled Lipase Cancelled Urine Color Urine Appearance Urine pH Ur Specific [place] Urine Protein Urine Glucose (UA) Urine Ketones Urine Blood Urine Nitrite Ur Leukocyte Esterase Urine RBC Urine WBC Ur Squamous Epith Cells Amorphous Sediment Urine Bacteria Salicylates Acetaminophen Acetone, Qual Cancelled Coronavirus (PCR) Influenza Type A (PCR) Influenza Type B (PCR) RSV RNA Qual (PCR) 08/22/21 08/22/21 08/22/21 13:12 13:12 13:12 MCV MCH MCHC RDW Plt Count MPV Immature Gran % (Auto) Neut % (Auto) Lymph % (Auto) Bremer % (Auto) Eos % (Auto) Baso % (Auto) Lymph # (Auto) Bremer # (Auto) Eos # (Auto) Baso # (Auto) Abs Immat Gran (auto) Absolute Neuts (auto) Absolute Nucleated RBC Nucleated RBC % (auto) Neutrophils % (Manual) Band Neutrophils % Lymphocytes % (Manual) Atypical Lymphs % (Man) Monocytes % (Manual) Abs Neuts (Manual) Lymphocytes # (Manual) Atyp Lymphs # (Manual) Monocytes # (Manual) Toxic Vacuolation Platelet Estimate Plt Morphology Comment RBC Morphology Yair Cells Smear Tech's Comments PT INR O2 Saturation ABG pH at Pt Temp ABG pH (Temp Correct) ABG pCO2 at Pt Temp ABG pCO2 (Temp Corrct ABG pO2 at Pt Temp ABG pO2 (Temp Correct ABG HCO3 ABG Base Excess (Actual) Anion Gap 30 H Estim Creat Clear Calc 68.9 Estimated GFR > 60 POC Glucose Random Glucose 327 H Estimat Average Glucose Hemoglobin A1c % Lactic Acid 4.1 H* Lactic Acid Fup @ 2Hr Calcium 10.0 Magnesium 1.7 Total Bilirubin 3.1 H Direct Bilirubin 2.6 H AST 1109 H ALT 558 H Alkaline Phosphatase 225 H Troponin I High Sens B-Natriuretic Peptide Total Protein 7.5 Albumin 4.4 Lipase 1003 H Urine Color Urine Appearance Urine pH Ur Specific [place] Urine Protein Urine Glucose (UA) Urine Ketones Urine Blood Urine Nitrite Ur Leukocyte Esterase Urine RBC Urine WBC Ur Squamous Epith Cells Amorphous Sediment Urine Bacteria Salicylates Acetaminophen Acetone, Qual Small H Coronavirus (PCR) NEGATIVE Influenza Type A (PCR) NEGATIVE Influenza Type B (PCR) NEGATIVE RSV RNA Qual (PCR) NEGATIVE 08/22/21 08/22/21 08/22/21 14:04 15:54 21:05 MCV MCH MCHC RDW Plt Count MPV Immature Gran % (Auto) Neut % (Auto) Lymph % (Auto) Bremer % (Auto) Eos % (Auto) Baso % (Auto) Lymph # (Auto) Bremer # (Auto) Eos # (Auto) Baso # (Auto) Abs Immat Gran (auto) Absolute Neuts (auto) Absolute Nucleated RBC Nucleated RBC % (auto) Neutrophils % (Manual) Band Neutrophils % Lymphocytes % (Manual) Atypical Lymphs % (Man) Monocytes % (Manual) Abs Neuts (Manual) Lymphocytes # (Manual) Atyp Lymphs # (Manual) Monocytes # (Manual) Toxic Vacuolation Platelet Estimate Plt Morphology Comment RBC Morphology Yair Cells Smear Tech's Comments PT INR O2 Saturation ABG pH at Pt Temp ABG pH (Temp Correct) ABG pCO2 at Pt Temp ABG pCO2 (Temp Corrct ABG pO2 at Pt Temp ABG pO2 (Temp Correct ABG HCO3 ABG Base Excess (Actual) Anion Gap Estim Creat Clear Calc Estimated GFR POC Glucose 110 Random Glucose Estimat Average Glucose Hemoglobin A1c % Lactic Acid Lactic Acid Fup @ 2Hr 2.0 Calcium Magnesium Total Bilirubin Direct Bilirubin AST ALT Alkaline Phosphatase Troponin I High Sens B-Natriuretic Peptide Total Protein Albumin Lipase Urine Color YELLOW Urine Appearance CLEAR Urine pH 5.5 Ur Specific [place] 1.010 Urine Protein NEG Urine Glucose (UA) >=1000 H Urine Ketones 15 Urine Blood NEG Urine Nitrite NEG Ur Leukocyte Esterase NEG Urine RBC 0 Urine WBC 0 Ur Squamous Epith Cells TRACE Amorphous Sediment 1+ Urine Bacteria NONE Salicylates Acetaminophen Acetone, Qual Coronavirus (PCR) Influenza Type A (PCR) Influenza Type B (PCR) RSV RNA Qual (PCR) 08/22/21 08/23/21 08/23/21 21:24 06:50 06:50 MCV MCH MCHC RDW Plt Count MPV Immature Gran % (Auto) Neut % (Auto) Lymph % (Auto) Bremer % (Auto) Eos % (Auto) Baso % (Auto) Lymph # (Auto) Bremer # (Auto) Eos # (Auto) Baso # (Auto) Abs Immat Gran (auto) Absolute Neuts (auto) Absolute Nucleated RBC Nucleated RBC % (auto) Neutrophils % (Manual) Band Neutrophils % Lymphocytes % (Manual) Atypical Lymphs % (Man) Monocytes % (Manual) Abs Neuts (Manual) Lymphocytes # (Manual) Atyp Lymphs # (Manual) Monocytes # (Manual) Toxic Vacuolation Platelet Estimate Plt Morphology Comment RBC Morphology Yair Cells Smear Tech's Comments PT 17.5 H INR 1.5 H O2 Saturation ABG pH at Pt Temp ABG pH (Temp Correct) ABG pCO2 at Pt Temp ABG pCO2 (Temp Corrct ABG pO2 at Pt Temp ABG pO2 (Temp Correct ABG HCO3 ABG Base Excess (Actual) Anion Gap 21 H 17 Estim Creat Clear Calc 79.8 65.0 Estimated GFR > 60 > 60 POC Glucose Random Glucose 111 D 94 Estimat Average Glucose Hemoglobin A1c % Lactic Acid Lactic Acid Fup @ 2Hr Calcium 8.4 D 8.0 L Magnesium Total Bilirubin 3.8 H 4.7 H Direct Bilirubin 3.0 H 4.0 H AST 841 H 704 H ALT 611 H 571 H Alkaline Phosphatase 252 H 226 H Troponin I High Sens B-Natriuretic Peptide Total Protein 6.2 L 5.4 L Albumin 3.8 3.3 L Lipase 329 H Urine Color Urine Appearance Urine pH Ur Specific [place] Urine Protein Urine Glucose (UA) Urine Ketones Urine Blood Urine Nitrite Ur Leukocyte Esterase Urine RBC Urine WBC Ur Squamous Epith Cells Amorphous Sediment Urine Bacteria Salicylates < 5.0 L Acetaminophen < 1 Acetone, Qual Coronavirus (PCR) Influenza Type A (PCR) Influenza Type B (PCR) RSV RNA Qual (PCR) 08/23/21 08/23/21 08/23/21 06:50 06:51 07:05 MCV 91.0 MCH 32.1 MCHC 35.3 RDW 13.2 Plt Count 97 L D MPV 10.0 Immature Gran % (Auto) Cancelled Neut % (Auto) Cancelled Lymph % (Auto) Cancelled Bremer % (Auto) Cancelled Eos % (Auto) Cancelled Baso % (Auto) Cancelled Lymph # (Auto) Cancelled Bremer # (Auto) Cancelled Eos # (Auto) Cancelled Baso # (Auto) Cancelled Abs Immat Gran (auto) Cancelled Absolute Neuts (auto) Cancelled Absolute Nucleated RBC 0.000 Nucleated RBC % (auto) 0.0 Neutrophils % (Manual) 74 H Band Neutrophils % 19 H Lymphocytes % (Manual) 2 L Atypical Lymphs % (Man) 1 Monocytes % (Manual) 4 Abs Neuts (Manual) 23.0 H Lymphocytes # (Manual) 0.5 L Atyp Lymphs # (Manual) 0.2 Monocytes # (Manual) 1.0 Toxic Vacuolation PRESENT Platelet Estimate DECREASED Plt Morphology Comment NORMAL RBC Morphology NOTED Allen Cells 2+ (3-5) Smear Tech's Comments PT INR O2 Saturation ABG pH at Pt Temp ABG pH (Temp Correct) ABG pCO2 at Pt Temp ABG pCO2 (Temp Corrct ABG pO2 at Pt Temp ABG pO2 (Temp Correct ABG HCO3 ABG Base Excess (Actual) Anion Gap Estim Creat Clear Calc Estimated GFR POC Glucose 85 Random Glucose Estimat Average Glucose 197 Hemoglobin A1c % 8.5 Lactic Acid Lactic Acid Fup @ 2Hr Calcium Magnesium Total Bilirubin Direct Bilirubin AST ALT Alkaline Phosphatase Troponin I High Sens B-Natriuretic Peptide Total Protein Albumin Lipase Urine Color Urine Appearance Urine pH Ur Specific [place] Urine Protein Urine Glucose (UA) Urine Ketones Urine Blood Urine Nitrite Ur Leukocyte Esterase Urine RBC Urine WBC Ur Squamous Epith Cells Amorphous Sediment Urine Bacteria Salicylates Acetaminophen Acetone, Qual Coronavirus (PCR) Influenza Type A (PCR) Influenza Type B (PCR) RSV RNA Qual (PCR) Microbiology Microbiology Results: Microbiology 08/22/21 13:12 Blood Culture - Preliminary Blood - Venous Prelim: GNR Gram Stain only 08/22/21 13:26 Blood Culture - Preliminary Blood - Venous Prelim: GNR Gram Stain only Assessment and Plan (1) Acute acalculous cholecystitis: Status: Acute (2) Pancreatitis: Status: Acute Assessment and Plan: hospital d#2 65yo M with DM2, HTN, CAD s/p CABG 15 yr ago admitted with severe sepsis due to acute acalculous cholecystitis, complicated by GNR bacteremia # severe sepsis # acute acalculous cholecystitis # GNR bacteremia # hyperlipasemia - pip/pacheco d#2, IV isotonic saline, follow BCx - Tbili worsening, though transaminases improving; continue to monitor LFTs - no evidence of obstructing stone on MRCP - no radiographic evidence of pancreatitis - GI + Gen Surg consulted. needs cholecystectomy for definitive source control- scheduled for today. - Revised Cardiac Risk Index is elevated, class IV. however, pt can achieve 4 METs without angina or equivalent. surgery is urgently indicated for control of sepsis and no further preoperative cardiac testing is indicated. # AGMA - due to lactic acidosis from sepsis, resolved p fluid resuscitation # DM2, A1c 8.5 - correction-dose lispro; on empagliflozin, MTF + glargine at home # CAD - on ASA, statin, and lisinopril # hx of HTN - holding home lisinopril # COPD - continue tiotropium, prn albuterol # tobacco abuse - NRT # VTE ppx - SCDs Quality Stroke Does the patient have a stroke diagnosis?: No VTE Prior VTE?: No VTE Risk Level:: Medical - moderate - high VTE Device Contraindication: N/A - Device Ordered VTE Drug Contraindication: Patient Refused
[2021-08-23] MEDS: 0.9 % Sodium Chloride Flush 3 ML SYRINGE IVFLUSH ×2 (08:49→18:51)
--- NOTE | 2021-08-23 10:27 | P.CONGS_ITS ---
History of Present Illness Consult details Consult date: 08/23/21 Reason for consult: other (Acalculous cholecystitis) Requesting physician: Gloria Velazquez Narrative: This is a 65-year-old gentleman with a history of diabetes and heart disease who presented to the emergency department yesterday with 3 days history of intermittent but severe epigastric and right upper quadrant pain. Patient reports his 1st episode of this type of pain was 2 weeks prior to presentation to the emergency department. He reports 8/10 epigastric and right upper quadrant pain associated with nausea and vomiting. He reports that this resolved on its own after about 2 days. The pain recurred and was exactly the same about 3 days prior to admission. He reports when he came to the emergency department the pain resolved. He reports his last episode of vomiting was a couple of days ago and he reports his nausea has resolved. Patient is hungry and is interested in eating. He reports his pain is a 1/10 currently in epigastric region only with palpation of the abdomen. He reports he had subjective fever and chills at home although the heat did not check the temperature. He denies any shortness of breath or chest pain. Patient was seen in the emergency department and had complete workup which showed a white blood cell count of 27 and half lactic acid of 4.[address] scan that was suspicious for acalculous cholecystitis with fluid within the gallbladder wall. Patient underwent ultrasound right upper quadrant which corroborated these findings. Moose aaron had significant elevation of all liver function tests including bilirubins and a lipase of 1000 on admission. Patient was admitted to the Medicine Service with a GI consultation. GI recommended MRCP. Patient underwent MRCP last evening which showed acalculous cholecystitis without any evidence of stones or choledocholithiasis. Common bile duct was 6 mm in size which was different from the CT scan reading of 1 cm in size. There was no intra or extrahepatic duct dilation. There was no evidence of pancreatitis on the MRI. Surgery was consulted for cholecystectomy given acalculous cholecystitis. Review of Systems Constitutional: Constitutional: Denies chills, Denies difficulty sleeping, Denies excessive sweating, Denies fatigue, Denies fever(s), Denies headache(s), Denies night sweats, Denies weakness and Denies weight loss Eyes: Eyes: Denies blurry vision, Denies diplopia, Denies eye discharge and Reports requires corrective lenses ENT: Reports Normal hearing present, Denies change in voice, Denies headache(s), Denies neck mass, Denies sore throat, Denies throat swelling and Denies tongue swelling Cardiovascular: Cardiovascular: Denies chest pain, Denies chest pain at rest, Denies chest pain with activity, Denies edema, Denies leg edema and Denies dyspnea on exertion Respiratory: Respiratory: Denies cough, Denies excessive phlegm production, Denies dyspnea on exertion, Denies stridor and Denies wheezing Gastrointestinal: Gastrointestinal: Reports abdominal pain (Epigastric and right upper quadrant), Denies melena, Denies bloating, Denies hematochezia, Denies constipation, Denies heartburn, Reports nausea and Reports vomiting Genitourinary: Genitourinary: Denies hematuria, Denies dysuria, Denies urinary hesitancy, Denies urinary incontinence and Denies urinary urgency Musculoskeletal: Musculoskeletal: Denies back pain, Denies arthralgias and Denies muscle weakness Integumentary/Breasts: Skin/Breast: Denies breast swelling, Denies breast pain, Denies breast mass, Denies change in pigmentation, Denies new lesions and Denies rash Neurologic: Reports Normal hearing present, Denies confusion, Denies headache(s), Denies lack of coordination, Denies focal weakness, Denies paresthesias and Denies weakness Psychiatric: Psychiatric: Denies anxiety, Denies confusion and Reports depression Endocrine: Endocrine: Denies cold intolerance, Denies excessive sweating and Denies fatigue Hematologic/Lymphatic: Hematologic/Lymphatic: Denies easy bleeding, Denies e asy bruising and Denies lymphadenopathy Allergic/Immunologic: Allergic/Immunologic: Denies urticaria, Denies throat swelling, Denies tongue swelling and Denies wheezing PMFSH Past Medical History Medical History (Updated 08/23/21 @ 10:33 by Vidya Shell MD) Coronary artery disease Diabetes Hypercholesterolemia Hypertension Family History Pertinent family history: Patient reports both his mother and father are alive. His mother has diabetes and father has heart disease. He has 1 son and 1 daughter who are both healthy. He has 1 sister and 1 brother both of for healthy. Patient denies any other significant family history. Surgical History Surgical History (Updated 08/23/21 @ 10:33 by Vidya Shell MD) History of coronary artery bypass graft x 1 Social History Social History (Updated 08/23/21 @ 10:36 by Vidya Shell MD) Household Members: None Housing: Apartment Do you presently have visiting nurse or other home services: No Unable to assess alcohol history related to: Unknown Patient Tobacco Use Status: Former Tobacco user Quit Date: 08/19/2021 Cigarette Packs Per Day: 1 Cigarettes Per Day: 20 Years Smoked: 40 Use of substances other than those prescribed or required for medical reasons: No Currently Displaying Signs/Symptoms of Drug Intoxication Withdrawal: No Any prior treatment program specific to substance use: No Have you been hit, kicked, punched, or otherwise hurt by someone within the past year? If so, by whom?: No Do you feel safe in your current relationship?: No Is there a partner from a previous relationship who is making you feel unsafe now?: No Are you made to feel afraid or neglected: No Advance Directives: No Advance Directives Information Provided: No Do you have thoughts of harming others: None Do you have a plan to hurt others: No Plan Recently lost weight without trying: No How much weight loss: Unsure Eating poorly because of decreased appetite: Yes Nutrition screen score: 3 Nutrition Risks: Acute nausea or vomiting x1 week Poor oral hygiene: Yes Meds Allergies Allergy/AdvReac Type Severity Reaction Status Date / Time No Known Allergies Allergy Verified 08/22/21 12:22 Active Medications: Current Medications Albuterol Sulfate (Albuterol Sulfate 90 Mcg 8 Gm Inhaler) 2 puff INHALE RQ4H PRN PRN Reason: shortness of breath/wheeze Dextrose (Dextrose 50 % 25 Gm/50 Ml Vial) 25 gm IVPUSH Q15M PRN; Protocol PRN Reason: per Hypoglycemia Standing Ord. Glucose (Glucose Gel 15 Gm Gel..Gram.) 15 gm PO Q15M PRN; Protocol PRN Reason: per Hypoglycemia Standing Ord. Piperacillin Sod/Tazobactam (Sod 3.375 gm/ Sodium Chloride) 50 mls @ 100 mls/hr IV Q6H [facility] Last Infusion: 08/23/21 08:06 Dose: Infused Documented by: Sodium Chloride (Ns) 1,000 mls @ 150 mls/hr IVCONT .Q6H40M [facility] Last Admin: 08/23/21 08:51 Dose: 150 mls/hr Documented by: Insulin Human Lispro (Insulin Lispro 100 Unit/Ml 3 Ml Vial) 0 unit SUBCUT Q6H [facility]; Protocol Last Admin: 08/23/21 08:06 Dose: Not Given Documented by: Melatonin (Melatonin 3 Mg Tablet) 3 mg PO BEDTIME PRN PRN Reason: Insomnia Last Admin: 08/22/21 22:36 Dose: 3 mg Documented by: Morphine Sulfate (Morphine Sulfate 4 Mg/Ml Cartridge) 3 mg IVPUSH Q4H PRN; Protocol PRN Reason: Pain, Severe (Pain Scale 7-10) Nicotine (Nicotine 14 Mg Patch.Td24) 14 mg TRANSDERMA DAILY [facility] Last Admin: 08/23/21 08:52 Dose: Not Given Documented by: Ondansetron HCl (Ondansetron Hcl 4 Mg/2 Ml Vial) 4 mg IVPUSH Q8H PRN PRN Reason: Nausea and Vomiting Last Admin: 08/23/21 04:04 Dose: 4 mg Documented by: Sodium Chloride (0.9 % Sodium Chloride Flush 3 Ml Syringe) 3 ml IVFLUSH QSHIFT [facility] Last Admin: 08/23/21 08:49 Dose: 3 ml Documented by: Tiotropium Robbins (Tiotropium Robbins 18 Mcg Cap.W.Dev) 1 puff INHALE RDAILY [facility] Home Medications Medication Instructions Recorded Confirmed Last Taken Type albuterol sulfate 90 mcg/actuation 2 puff INHALATION Q6H PRN 08/22/21 08/22/21 Unknown History aerosol inhaler aspirin 81 mg chewable tablet 81 mg PO DAILY 08/22/21 08/22/21 Unknown History atorvastatin 80 mg tablet 80 mg PO BEDTIME 08/22/21 08/22/21 Unknown History empagliflozin 25 mg tablet 12.5 mg PO DAILY 08/22/21 08/22/21 Unknown History insulin glargine 100 unit/mL (3 40 unit SUBCUT BEDTIME 08/22/21 08/22/21 Unknown History mL) subcutaneous pen lisinopril 2.5 mg tablet 2.5 mg PO DAILY 08/22/21 08/22/21 Unknown History metformin 1,000 mg tablet 1,000 mg PO BID 08/22/21 08/22/21 Unknown History mirtazapine 30 mg tablet 30 mg PO BEDTIME 08/22/21 08/22/21 Unknown History nicotine (polacrilex) 4 mg buccal 4 mg BUCCAL Q2H PRN 08/22/21 08/22/21 Unknown History lozenge omeprazole 20 mg capsule,delayed 20 mg PO DAILY 08/22/21 08/22/21 Unknown History release ramelteon 8 mg tablet 8 mg PO BEDTIME 08/22/21 08/22/21 Unknown History semaglutide 1 mg/dose (4 mg/3 mL) 1 mg SUBCUT QWEEK 08/22/21 08/22/21 Unknown History subcutaneous pen injector thiamine HCl (vitamin B1) 100 mg 100 mg PO DAILY 08/22/21 08/22/21 Unknown History tablet tiotropium bromide 2.5 2 puff INHALATION DAILY 08/22/21 08/22/21 Unknown History mcg/actuation mist for inhalation Physical Exam Vital Signs: Vital Signs: Last Vital Signs Temp 96.8 F 08/23/21 07:05 Pulse 91 08/23/21 07:05 Resp 16 08/23/21 07:05 BP 105/65 08/23/21 07:05 Pulse Ox 90 L 08/23/21 07:05 Body Mass Index 23.7 Const: General: No confusion Nutritional Appearance: average body habitus and well nourished Orientation/consciousness: No confusion HENMT: Head: Yes normal to inspection, Yes normocephalic and Yes atraumatic Ears: hearing grossly normal bilaterally Mouth: Normal oral and palatal mucosa present Teeth and gingiva: dentition normal Throat: Yes posterior oropharynx normal Eyes: General: appearance normal, both eyes and all related structures Eyelids: Yes eyelids normal EOM: EOMs intact bilaterally Neck: Neck: Yes normal visual inspection, Yes full ROM, Yes trachea midline and Yes no JVD Thyroid: Thyroid normal Lymphatic: no lymphadenopathy noted Resp: Effort & Inspection: normal respiratory effort and able to speak in complete sentences Auscultation: clear to auscultation bilaterally Cardio: Jugular venous distension: no JVD Rate: regular rate Heart sounds: S1 normal heart sound present, S2 normal heart sound present, no click, no gallops and no murmurs GI: Inspection: Yes normal to inspection, No distended and No incision Palpation (GI): Soft to palpation, Tenderness to palpation present (GI) (Mild tenderness to palpation in the epigastrium and right upper quadrant), no guardi ng, not rigid, no hernias and no masses Percussion: Yes normal to percussion Rectal Exam - Male: Yes deferred Skin: General skin exam: no rashes or lesions noted Neuro: General: No confusion Cranial nerves: Yes Normal hearing present Extrem: General: Yes normal to inspection, Yes full ROM, Yes no clubbing, cyanosis or edema and Yes no calf tenderness Psych: Appearance: grossly normal Mental Status: mental status grossly normal Results Labs Result diagrams: 08/23/21 06:51 08/23/21 06:50 Labs: Abnormal lab results 08/22/21 08/22/21 08/22/21 Range/Units 12:17 13:12 13:12 WBC 27.5 H (4.8-10.8) X10*3/uL RBC (4.60-5.80) X10*6/uL Hgb (14.0-18.0) g/dl Hct (42-52) % Plt Count (160-400) X10*3/uL Immature Gran % (Auto) 0.6 H (0.0-0.4) % Neut % (Auto) 88.0 H (45-73) % Lymph % (Auto) 4.1 L (20-40) % Lymph # (Auto) 1.1 L (1.2-4.9) X10*3/uL Kerr # (Auto) 1.9 H (0.1-1.2) X10*3/uL Abs Immat Gran (auto) 0.17 H (0.00-0.03) X10*3/uL Absolute Neuts (auto) 24.2 H (2.0-8.3) X10*3/uL Neutrophils % (Manual) (45-73) % Band Neutrophils % (3-5) % Lymphocytes % (Manual) (20-40) % Abs Neuts (Manual) (2.2-7.9) X10*3/uL Lymphocytes # (Manual) (0.6-4.8) X10*3/uL PT (9.9-13.0) SEC INR (0.9-1.1) Carbon Dioxide (22-29) mmol/L Anion Gap (12-20) BUN (9-16) mg/dL POC Glucose 323 H (60-115) mg/dL Random Glucose (60-115) mg/dL Lactic Acid 4.1 H* (0.5-2.0) mmol/L Calcium (8.4-10.2) mg/dL Total Bilirubin (0.0-1.0) mg/dL Direct Bilirubin (0.0-0.5) mg/dL AST (5-37) U/L ALT (0-40) U/L Alkaline Phosphatase (39-117) U/L Total Protein (6.5-8.0) g/dL Albumin (3.5-5.0) g/dL Lipase (8-78) U/L Urine Glucose (UA) (NEG) MG/DL Salicylates (15-30) mg/dL Acetone, Qual (Negative) Hepatitis C Ab (EIA) (Nonreactive) 08/22/21 08/22/21 08/22/21 Range/Units 13:12 14:04 21:24 WBC (4.8-10.8) X10*3/uL RBC (4.60-5.80) X10*6/uL Hgb (14.0-18.0) g/dl Hct (42-52) % Plt Count (160-400) X10*3/uL Immature Gran % (Auto) (0.0-0.4) % Neut % (Auto) (45-73) % Lymph % (Auto) (20-40) % Lymph # (Auto) (1.2-4.9) X10*3/uL Kerr # (Auto) (0.1-1.2) X10*3/uL Abs Immat Gran (auto) (0.00-0.03) X10*3/uL Absolute Neuts (auto) (2.0-8.3) X10*3/uL Neutrophils % (Manual) (45-73) % Band Neutrophils % (3-5) % Lymphocytes % (Manual) (20-40) % Abs Neuts (Manual) (2.2-7.9) X10*3/uL Lymphocytes # (Manual) (0.6-4.8) X10*3/uL PT (9.9-13.0) SEC INR (0.9-1.1) Carbon Dioxide 15 L 17 L (22-29) mmol/L Anion Gap 30 H 21 H (12-20) BUN 20 H 17 H (9-16) mg/dL POC Glucose (60-115) mg/dL Random Glucose 327 H (60-115) mg/dL Lactic Acid (0.5-2.0) mmol/L Calcium (8.4-10.2) mg/dL Total Bilirubin 3.1 H 3.8 H (0.0-1.0) mg/dL Direct Bilirubin 2.6 H 3.0 H (0.0-0.5) mg/dL AST 1109 H 841 H (5-37) U/L ALT 558 H 611 H (0-40) U/L Alkaline Phosphatase 225 H 252 H (39-117) U/L Total Protein 6.2 L (6.5-8.0) g/dL Albumin (3.5-5.0) g/dL Lipase 1003 H (8-78) U/L Urine Glucose (UA) >=1000 H (NEG) MG/DL Salicylates < 5.0 L (15-30) mg/dL Acetone, Qual Small H (Negative) Hepatitis C Ab (EIA) (Nonreactive) 08/23/21 08/23/21 08/23/21 Range/Units 06:50 06:50 06:50 WBC (4.8-10.8) X10*3/uL RBC (4.60-5.80) X10*6/uL Hgb (14.0-18.0) g/dl Hct (42-52) % Plt Count (160-400) X10*3/uL Immature Gran % (Auto) (0.0-0.4) % Neut % (Auto) (45-73) % Lymph % (Auto) (20-40) % Lymph # (Auto) (1.2-4.9) X10*3/uL Kerr # (Auto) (0.1-1.2) X10*3/uL Abs Immat Gran (auto) (0.00-0.03) X10*3/uL Absolute Neuts (auto) (2.0-8.3) X10*3/uL Neutrophils % (Manual) (45-73) % Band Neutrophils % (3-5) % Lymphocytes % (Manual) (20-40) % Abs Neuts (Manual) (2.2-7.9) X10*3/uL Lymphocytes # (Manual) (0.6-4.8) X10*3/uL PT 17.5 H (9.9-13.0) SEC INR 1.5 H (0.9-1.1) Carbon Dioxide 20 L (22-29) mmol/L Anion Gap (12-20) BUN 23 H (9-16) mg/dL POC Glucose (60-115) mg/dL Random Glucose (60-115) mg/dL Lactic Acid (0.5-2.0) mmol/L Calcium 8.0 L (8.4-10.2) mg/dL Total Bilirubin 4.7 H (0.0-1.0) mg/dL Direct Bilirubin 4.0 H (0.0-0.5) mg/dL AST 704 H (5-37) U/L ALT 571 H (0-40) U/L Alkaline Phosphatase 226 H (39-117) U/L Total Protein 5.4 L (6.5-8.0) g/dL Albumin 3.3 L (3.5-5.0) g/dL Lipase 329 H (8-78) U/L Urine Glucose (UA) (NEG) MG/DL Salicylates (15-30) mg/dL Acetone, Qual (Negative) Hepatitis C Ab (EIA) Reactive H (Nonreactive) 08/23/21 Range/Units 06:51 WBC 24.7 H (4.8-10.8) X10*3/uL RBC 4.11 L D (4.60-5.80) X10*6/uL Hgb 13.2 L D (14.0-18.0) g/dl Hct 37.4 L D (42-52) % Plt Count 97 L D (160-400) X10*3/uL Immature Gran % (Auto) (0.0-0.4) % Neut % (Auto) (45-73) % Lymph % (Auto) (20-40) % Lymph # (Auto) (1.2-4.9) X10*3/uL Kerr # (Auto) (0.1-1.2) X10*3/uL Abs Immat Gran (auto) (0.00-0.03) X10*3/uL Absolute Neuts (auto) (2.0-8.3) X10*3/uL Neutrophils % (Manual) 74 H (45-73) % Band Neutrophils % 19 H (3-5) % Lymphocytes % (Manual) 2 L (20-40) % Abs Neuts (Manual) 23.0 H (2.2-7.9) X10*3/uL Lymphocytes # (Manual) 0.5 L (0.6-4.8) X10*3/uL PT (9.9-13.0) SEC INR (0.9-1.1) Carbon Dioxide (22-29) mmol/L Anion Gap (12-20) BUN (9-16) mg/dL POC Glucose (60-115) mg/dL Random Glucose (60-115) mg/dL Lactic Acid (0.5-2.0) mmol/L Calcium (8.4-10.2) mg/dL Total Bilirubin (0.0-1.0) mg/dL Direct Bilirubin (0.0-0.5) mg/dL AST (5-37) U/L ALT (0-40) U/L Alkaline Phosphatase (39-117) U/L Total Protein (6.5-8.0) g/dL Albumin (3.5-5.0) g/dL Lipase (8-78) U/L Urine Glucose (UA) (NEG) MG/DL Salicylates (15-30) mg/dL Acetone, Qual (Negative) Hepatitis C Ab (EIA) (Nonreactive) Short CBC 08/22/21 08/23/21 Range/Units 13:12 06:51 WBC 27.5 H 24.7 H (4.8-10.8) X10*3/uL Hgb 16.7 13.2 L D (14.0-18.0) g/dl Hct 47.8 37.4 L D (42-52) % Plt Count 176 97 L D (160-400) X10*3/uL BMP 08/22/21 08/22/21 08/22/21 13:12 13:12 21:24 Sodium Cancelled 138 141 Potassium Cancelled 3.6 3.6 Chloride Cancelled 97 107 Carbon Dioxide Cancelled 15 L 17 L BUN Cancelled 20 H 17 H Creatinine Cancelled 1.02 0.88 Calcium Cancelled 10.0 8.4 D 08/23/21 06:50 Sodium 141 Potassium 3.5 Chloride 108 Carbon Dioxide 20 L BUN 23 H Creatinine 1.08 Calcium 8.0 L Liver Function 08/22/21 08/22/21 08/22/21 Range/Units 13:12 13:12 21:24 Total Bilirubin Cancelled 3.1 H 3.8 H Direct Bilirubin Cancelled 2.6 H 3.0 H AST Cancelled 1109 H 841 H ALT Cancelled 558 H 611 H Alkaline Phosphatase Cancelled 225 H 252 H Albumin Cancelled 4.4 3.8 08/23/21 Range/Units 06:50 Total Bilirubin 4.7 H Direct Bilirubin 4.0 H AST 704 H ALT 571 H Alkaline Phosphatase 226 H Albumin 3.3 L Urine 08/22/21 Range/Units 14:04 Urine Color YELLOW Urine Appearance CLEAR Urine pH 5.5 (5.0-8.0) Ur Specific [place] 1.010 (1.005-1.025) Urine Protein NEG (NEG-TRACE) MG/DL Urine Glucose (UA) >=1000 H (NEG) MG/DL All other labs normal. Imaging Abdomen CT scan report/results: report reviewed and image reviewed CT scan - chest: report reviewed Abdominal ultrasound report/results: report reviewed Additional studies: MRI reviewed results discussed in the history of [facility] Assessment and Plan (1) Acute acalculous cholecystitis: Status: Acute This is a 65-year-old gentleman with diabetes and history of heart disease who presented to the emergency department with 3 day history epigastric and right upper quadrant pain and studies consistent with acalculous cholecystitis. Patient presented with a laboratory values that appeared to show that he had choledocholithiasis with elevated liver function tests and pancreatitis. MRI has shown that there is no common bile duct stone. Patient does have 2/2 vials of blood cultures that are positive for Gram-negative rods. Given this the patient was taken to the operating room for laparoscopic possible open cholecystectomy for treatment of acalculous cholecystitis. Patient has agreed to undergo laparoscopic possible open cholecystectomy. Risks benefits and alternatives were discussed with the patient and he wishes to proceed. Patient will continue with Zosyn for IV antibiotics. (2) Pancreatitis: Status: Acute Procedures Date of Service Date of Service: 08/23/21
[2021-08-23] MEDS: Nicotine 14 MG PATCH.TD24 TRANSDERMA (11:00)
--- NOTE | 2021-08-23 11:04 | HO.ANESPROP2 ---
[facility] Active Problems Active Problems: All Active Problems (Updated 08/23/21 @ 10:33 by Vidya Shell MD) Acute acalculous cholecystitis (Acute) Pancreatitis (Acute) Diabetes mellitus (Acute) Severe sepsis (Acute) Metabolic acidosis (Acute) Past Medical History Medical History Coronary artery disease Diabetes Hypercholesterolemia Hypertension Surgical History Surgical History History of coronary artery bypass graft x 1 Social History Social History Household Members: None Housing: Apartment Do you presently have visiting nurse or other home services: No Unable to assess alcohol history related to: Unknown Patient Tobacco Use Status: Former Tobacco user Quit Date: 08/19/2021 Cigarette Packs Per Day: 1 Cigarettes Per Day: 20 Years Smoked: 40 Use of substances other than those prescribed or required for medical reasons: No Currently Displaying Signs/Symptoms of Drug Intoxication Withdrawal: No Any prior treatment program specific to substance use: No Have you been hit, kicked, punched, or otherwise hurt by someone within the past year? If so, by whom?: No Do you feel safe in your current relationship?: No Is there a partner from a previous relationship who is making you feel unsafe now?: No Are you made to feel afraid or neglected: No Advance Directives: No Advance Directives Information Provided: No Do you have thoughts of harming others: None Do you have a plan to hurt others: No Plan Recently lost weight without trying: No How much weight loss: Unsure Eating poorly because of decreased appetite: Yes Nutrition screen score: 3 Nutrition Risks: Acute nausea or vomiting x1 week Poor oral hygiene: Yes Meds Allergies Allergy/AdvReac Type Severity Reaction Status Date / Time No Known Allergies Allergy Verified 08/22/21 12:22 Active Medications: Current Medications Albuterol Sulfate (Albuterol Sulfate 90 Mcg 8 Gm Inhaler) 2 puff INHALE RQ4H PRN PRN Reason: shortness of breath/wheeze Dextrose (Dextrose 50 % 25 Gm/50 Ml Vial) 25 gm IVPUSH Q15M PRN; Protocol PRN Reason: per Hypoglycemia Standing Ord. Glucose (Glucose Gel 15 Gm Gel..Gram.) 15 gm PO Q15M PRN; Protocol PRN Reason: per Hypoglycemia Standing Ord. Piperacillin Sod/Tazobactam (Sod 3.375 gm/ Sodium Chloride) 50 mls @ 100 mls/hr IV Q6H REPLACED BY [facility] Last Infusion: 08/23/21 08:06 Dose: Infused Documented by: Sodium Chloride (Ns) 1,000 mls @ 150 mls/hr IVCONT .Q6H40M REPLACED BY [facility] Last Admin: 08/23/21 08:51 Dose: 150 mls/hr Documented by: Insulin Human Lispro (Insulin Lispro 100 Unit/Ml 3 Ml Vial) 0 unit SUBCUT Q6H REPLACED BY [facility]; Protocol Last Admin: 08/23/21 08:06 Dose: Not Given Documented by: Melatonin (Melatonin 3 Mg Tablet) 3 mg PO BEDTIME PRN PRN Reason: Insomnia Last Admin: 08/22/21 22:36 Dose: 3 mg Documented by: Morphine Sulfate (Morphine Sulfate 4 Mg/Ml Cartridge) 3 mg IVPUSH Q4H PRN; Protocol PRN Reason: Pain, Severe (Pain Scale 7-10) Nicotine (Nicotine 14 Mg Patch.Td24) 14 mg TRANSDERMA DAILY REPLACED BY [facility] Last Admin: 08/23/21 08:52 Dose: Not Given Documented by: Ondansetron HCl (Ondansetron Hcl 4 Mg/2 Ml Vial) 4 mg IVPUSH Q8H PRN PRN Reason: Nausea and Vomiting Last Admin: 08/23/21 04:04 Dose: 4 mg Documented by: Sodium Chloride (0.9 % Sodium Chloride Flush 3 Ml Syringe) 3 ml IVFLUSH QSHIFT REPLACED BY [facility] Last Admin: 08/23/21 08:49 Dose: 3 ml Documented by: Tiotropium [place] (Tiotropium [place] 18 Mcg Cap.W.Dev) 1 puff INHALE RDAILY REPLACED BY [facility] Home Medications Medication Instructions Recorded Confirmed Last Taken Type albuterol sulfate 90 mcg/actuation 2 puff INHALATION Q6H PRN 08/22/21 08/22/21 Unknown History aerosol inhaler aspirin 81 mg chewable tablet 81 mg PO DAILY 08/22/21 08/22/21 Unknown History atorvastatin 80 mg tablet 80 mg PO BEDTIME 08/22/21 08/22/21 Unknown History empagliflozin 25 mg tablet 12.5 mg PO DAILY 08/22/21 08/22/21 Unknown History insulin glargine 100 unit/mL (3 40 unit SUBCUT BEDTIME 08/22/21 08/22/21 Unknown History mL) subcutaneous pen lisinopril 2.5 mg tablet 2.5 mg PO DAILY 08/22/21 08/22/21 Unknown History metformin 1,000 mg tablet 1,000 mg PO BID 08/22/21 08/22/21 Unknown History mirtazapine 30 mg tablet 30 mg PO BEDTIME 08/22/21 08/22/21 Unknown History nicotine (polacrilex) 4 mg buccal 4 mg BUCCAL Q2H PRN 08/22/21 08/22/21 Unknown History lozenge omeprazole 20 mg capsule,delayed 20 mg PO DAILY 08/22/21 08/22/21 Unknown History release ramelteon 8 mg tablet 8 mg PO BEDTIME 08/22/21 08/22/21 Unknown History semaglutide 1 mg/dose (4 mg/3 mL) 1 mg SUBCUT QWEEK 08/22/21 08/22/21 Unknown History subcutaneous pen injector thiamine HCl (vitamin B1) 100 mg 100 mg PO DAILY 08/22/21 08/22/21 Unknown History tablet tiotropium bromide 2.5 2 puff INHALATION DAILY 08/22/21 08/22/21 Unknown History mcg/actuation mist for inhalation Exam Exam Date and Time: August 23, 2021 1104 Height,Weight and Vital Signs: Height 5 ft 8 in Weight 70.8 kg Last Vital Signs Temp 96.8 F 08/23/21 07:05 Pulse 91 08/23/21 07:05 Resp 16 08/23/21 07:05 BP 105/65 08/23/21 07:05 Pulse Ox 90 L 08/23/21 07:05 Pertinent Lab Results Pertinent Lab Results: Laboratory Tests 08/22/21 08/22/21 08/22/21 12:06 12:11 12:17 WBC RBC Hgb Hct MCV MCH MCHC RDW Plt Count MPV Immature Gran % (Auto) Neut % (Auto) Lymph % (Auto) [place] % (Auto) Eos % (Auto) Baso % (Auto) Lymph # (Auto) [place] # (Auto) Eos # (Auto) Baso # (Auto) Abs Immat Gran (auto) Absolute Neuts (auto) Absolute Nucleated RBC Nucleated RBC % (auto) Neutrophils % (Manual) Band Neutrophils % Lymphocytes % (Manual) Atypical Lymphs % (Man) Monocytes % (Manual) Abs Neuts (Manual) Lymphocytes # (Manual) Atyp Lymphs # (Manual) Monocytes # (Manual) Toxic Vacuolation Platelet Estimate Plt Morphology Comment RBC Morphology Yair Cells Smear Tech's Comments PT INR O2 Saturation Cancelled TNP ABG pH at Pt Temp Cancelled TNP ABG pH (Temp Correct) Cancelled TNP ABG pCO2 at Pt Temp Cancelled TNP ABG pCO2 (Temp Corrct Cancelled TNP ABG pO2 at Pt Temp Cancelled TNP ABG pO2 (Temp Correct Cancelled TNP ABG HCO3 Cancelled TNP ABG Base Excess (Actual) Cancelled TNP Sodium Potassium Chloride Carbon Dioxide Anion Gap BUN Creatinine Estim Creat Clear Calc Estimated GFR POC Glucose 323 H Random Glucose Estimat Average Glucose Hemoglobin A1c % Lactic Acid Lactic Acid Fup @ 2Hr Calcium Magnesium Total Bilirubin Direct Bilirubin AST ALT Alkaline Phosphatase Troponin I High Sens B-Natriuretic Peptide Total Protein Albumin Lipase Urine Color Urine Appearance Urine pH Ur Specific Randall Urine Protein Urine Glucose (UA) Urine Ketones Urine Blood Urine Nitrite Ur Leukocyte Esterase Urine RBC Urine WBC Ur Squamous Epith Cells Amorphous Sediment Urine Bacteria Salicylates Acetaminophen Acetone, Qual Coronavirus (PCR) Hepatitis A IgM Ab Hep Bs Antigen Hep Bs Antibody Hep B Core Total Ab Hepatitis C Ab (EIA) Influenza Type A (PCR) Influenza Type B (PCR) RSV RNA Qual (PCR) 08/22/21 08/22/21 08/22/21 13:12 13:12 13:12 WBC 27.5 H RBC 5.20 Hgb 16.7 Hct 47.8 MCV 91.9 MCH 32.1 MCHC 34.9 RDW 12.9 Plt Count 176 MPV Not Reportable Immature Gran % (Auto) 0.6 H Neut % (Auto) 88.0 H Lymph % (Auto) 4.1 L [place] % (Auto) 7.0 Eos % (Auto) 0.0 Baso % (Auto) 0.3 Lymph # (Auto) 1.1 L [place] # (Auto) 1.9 H Eos # (Auto) 0.0 Baso # (Auto) 0.1 Abs Immat Gran (auto) 0.17 H Absolute Neuts (auto) 24.2 H Absolute Nucleated RBC 0.000 Nucleated RBC % (auto) 0.0 Neutrophils % (Manual) Band Neutrophils % Lymphocytes % (Manual) Atypical Lymphs % (Man) Monocytes % (Manual) Abs Neuts (Manual) Lymphocytes # (Manual) Atyp Lymphs # (Manual) Monocytes # (Manual) Toxic Vacuolation Platelet Estimate Plt Morphology Comment RBC Morphology [place] Cells Smear Tech's Comments VERIFIED PT INR O2 Saturation ABG pH at Pt Temp ABG pH (Temp Correct) ABG pCO2 at Pt Temp ABG pCO2 (Temp Corrct ABG pO2 at Pt Temp ABG pO2 (Temp Correct ABG HCO3 ABG Base Excess (Actual) Sodium Cancelled Potassium Cancelled Chloride Cancelled Carbon Dioxide Cancelled Anion Gap Cancelled BUN Cancelled Creatinine Cancelled Estim Creat Clear Calc Cancelled Estimated GFR Cancelled POC Glucose Random Glucose Cancelled Estimat Average Glucose Hemoglobin A1c % Lactic Acid Lactic Acid Fup @ 2Hr Calcium Cancelled Magnesium Total Bilirubin Cancelled Direct Bilirubin Cancelled AST Cancelled ALT Cancelled Alkaline Phosphatase Cancelled Troponin I High Sens 9.2 B-Natriuretic Peptide 43 Total Protein Cancelled Albumin Cancelled Lipase Cancelled Urine Color Urine Appearance Urine pH Ur Specific Randall Urine Protein Urine Glucose (UA) Urine Ketones Urine Blood Urine Nitrite Ur Leukocyte Esterase Urine RBC Urine WBC Ur Squamous Epith Cells Amorphous Sediment Urine Bacteria Salicylates Acetaminophen Acetone, Qual Cancelled Coronavirus (PCR) Hepatitis A IgM Ab Hep Bs Antigen Hep Bs Antibody Hep B Core Total Ab Hepatitis C Ab (EIA) Influenza Type A (PCR) Influenza Type B (PCR) RSV RNA Qual (PCR) 08/22/21 08/22/21 08/22/21 13:12 13:12 13:12 WBC RBC Hgb Hct MCV MCH MCHC RDW Plt Count MPV Immature Gran % (Auto) Neut % (Auto) Lymph % (Auto) [place] % (Auto) Eos % (Auto) Baso % (Auto) Lymph # (Auto) [place] # (Auto) Eos # (Auto) Baso # (Auto) Abs Immat Gran (auto) Absolute Neuts (auto) Absolute Nucleated RBC Nucleated RBC % (auto) Neutrophils % (Manual) Band Neutrophils % Lymphocytes % (Manual) Atypical Lymphs % (Man) Monocytes % (Manual) Abs Neuts (Manual) Lymphocytes # (Manual) Atyp Lymphs # (Manual) Monocytes # (Manual) Toxic Vacuolation Platelet Estimate Plt Morphology Comment RBC Morphology [place] Cells Smear Tech's Comments PT INR O2 Saturation ABG pH at Pt Temp ABG pH (Temp Correct) ABG pCO2 at Pt Temp ABG pCO2 (Temp Corrct ABG pO2 at Pt Temp ABG pO2 (Temp Correct ABG HCO3 ABG Base Excess (Actual) Sodium 138 Potassium 3.6 Chloride 97 Carbon Dioxide 15 L Anion Gap 30 H BUN 20 H Creatinine 1.02 Estim Creat Clear Calc 68.9 Estimated GFR > 60 POC Glucose Random Glucose 327 H Estimat Average Glucose Hemoglobin A1c % Lactic Acid 4.1 H* Lactic Acid Fup @ 2Hr Calcium 10.0 Magnesium 1.7 Total Bilirubin 3.1 H Direct Bilirubin 2.6 H AST 1109 H ALT 558 H Alkaline Phosphatase 225 H Troponin I High Sens B-Natriuretic Peptide Total Protein 7.5 Albumin 4.4 Lipase 1003 H Urine Color Urine Appearance Urine pH Ur Specific Randall Urine Protein Urine Glucose (UA) Urine Ketones Urine Blood Urine Nitrite Ur Leukocyte Esterase Urine RBC Urine WBC Ur Squamous Epith Cells Amorphous Sediment Urine Bacteria Salicylates Acetaminophen Acetone, Qual Small H Coronavirus (PCR) NEGATIVE Hepatitis A IgM Ab Hep Bs Antigen Hep Bs Antibody Hep B Core Total Ab Hepatitis C Ab (EIA) Influenza Type A (PCR) NEGATIVE Influenza Type B (PCR) NEGATIVE RSV RNA Qual (PCR) NEGATIVE 08/22/21 08/22/21 08/22/21 14:04 15:54 21:05 WBC RBC Hgb Hct MCV MCH MCHC RDW Plt Count MPV Immature Gran % (Auto) Neut % (Auto) Lymph % (Auto) [place] % (Auto) Eos % (Auto) Baso % (Auto) Lymph # (Auto) [place] # (Auto) Eos # (Auto) Baso # (Auto) Abs Immat Gran (auto) Absolute Neuts (auto) Absolute Nucleated RBC Nucleated RBC % (auto) Neutrophils % (Manual) Band Neutrophils % Lymphocytes % (Manual) Atypical Lymphs % (Man) Monocytes % (Manual) Abs Neuts (Manual) Lymphocytes # (Manual) Atyp Lymphs # (Manual) Monocytes # (Manual) Toxic Vacuolation Platelet Estimate Plt Morphology Comment RBC Morphology [place] Cells Smear Tech's Comments PT INR O2 Saturation ABG pH at Pt Temp ABG pH (Temp Correct) ABG pCO2 at Pt Temp ABG pCO2 (Temp Corrct ABG pO2 at Pt Temp ABG pO2 (Temp Correct ABG HCO3 ABG Base Excess (Actual) Sodium Potassium Chloride Carbon Dioxide Anion Gap BUN Creatinine Estim Creat Clear Calc Estimated GFR POC Glucose 110 Random Glucose Estimat Average Glucose Hemoglobin A1c % Lactic Acid Lactic Acid Fup @ 2Hr 2.0 Calcium Magnesium Total Bilirubin Direct Bilirubin AST ALT Alkaline Phosphatase Troponin I High Sens B-Natriuretic Peptide Total Protein Albumin Lipase Urine Color YELLOW Urine Appearance CLEAR Urine pH 5.5 Ur Specific Randall 1.010 Urine Protein NEG Urine Glucose (UA) >=1000 H Urine Ketones 15 Urine Blood NEG Urine Nitrite NEG Ur Leukocyte Esterase NEG Urine RBC 0 Urine WBC 0 Ur Squamous Epith Cells TRACE Amorphous Sediment 1+ Urine Bacteria NONE Salicylates Acetaminophen Acetone, Qual Coronavirus (PCR) Hepatitis A IgM Ab Hep Bs Antigen Hep Bs Antibody Hep B Core Total Ab Hepatitis C Ab (EIA) Influenza Type A (PCR) Influenza Type B (PCR) RSV RNA Qual (PCR) 08/22/21 08/23/21 08/23/21 21:24 06:50 06:50 WBC RBC Hgb Hct MCV MCH MCHC RDW Plt Count MPV Immature Gran % (Auto) Neut % (Auto) Lymph % (Auto) [place] % (Auto) Eos % (Auto) Baso % (Auto) Lymph # (Auto) [place] # (Auto) Eos # (Auto) Baso # (Auto) Abs Immat Gran (auto) Absolute Neuts (auto) Absolute Nucleated RBC Nucleated RBC % (auto) Neutrophils % (Manual) Band Neutrophils % Lymphocytes % (Manual) Atypical Lymphs % (Man) Monocytes % (Manual) Abs Neuts (Manual) Lymphocytes # (Manual) Atyp Lymphs # (Manual) Monocytes # (Manual) Toxic Vacuolation Platelet Estimate Plt Morphology Comment RBC Morphology Yair Cells Smear Tech's Comments PT 17.5 H INR 1.5 H O2 Saturation ABG pH at Pt Temp ABG pH (Temp Correct) ABG pCO2 at Pt Temp ABG pCO2 (Temp Corrct ABG pO2 at Pt Temp ABG pO2 (Temp Correct ABG HCO3 ABG Base Excess (Actual) Sodium 141 141 Potassium 3.6 3.5 Chloride 107 108 Carbon Dioxide 17 L 20 L Anion Gap 21 H 17 BUN 17 H 23 H Creatinine 0.88 1.08 Estim Creat Clear Calc 79.8 65.0 Estimated GFR > 60 > 60 POC Glucose Random Glucose 111 D 94 Estimat Average Glucose Hemoglobin A1c % Lactic Acid Lactic Acid Fup @ 2Hr Calcium 8.4 D 8.0 L Magnesium Total Bilirubin 3.8 H 4.7 H Direct Bilirubin 3.0 H 4.0 H AST 841 H 704 H ALT 611 H 571 H Alkaline Phosphatase 252 H 226 H Troponin I High Sens B-Natriuretic Peptide Total Protein 6.2 L 5.4 L Albumin 3.8 3.3 L Lipase 329 H Urine Color Urine Appearance Urine pH Ur Specific Randall Urine Protein Urine Glucose (UA) Urine Ketones Urine Blood Urine Nitrite Ur Leukocyte Esterase Urine RBC Urine WBC Ur Squamous Epith Cells Amorphous Sediment Urine Bacteria Salicylates < 5.0 L Acetaminophen < 1 Acetone, Qual Coronavirus (PCR) Hepatitis A IgM Ab Hep Bs Antigen Hep Bs Antibody Hep B Core Total Ab Hepatitis C Ab (EIA) Influenza Type A (PCR) Influenza Type B (PCR) RSV RNA Qual (PCR) 08/23/21 08/23/21 08/23/21 06:50 06:50 06:51 WBC 24.7 H RBC 4.11 L D Hgb 13.2 L D Hct 37.4 L D MCV 91.0 MCH 32.1 MCHC 35.3 RDW 13.2 Plt Count 97 L D MPV 10.0 Immature Gran % (Auto) Cancelled Neut % (Auto) Cancelled Lymph % (Auto) Cancelled [place] % (Auto) Cancelled Eos % (Auto) Cancelled Baso % (Auto) Cancelled Lymph # (Auto) Cancelled [place] # (Auto) Cancelled Eos # (Auto) Cancelled Baso # (Auto) Cancelled Abs Immat Gran (auto) Cancelled Absolute Neuts (auto) Cancelled Absolute Nucleated RBC 0.000 Nucleated RBC % (auto) 0.0 Neutrophils % (Manual) 74 H Band Neutrophils % 19 H Lymphocytes % (Manual) 2 L Atypical Lymphs % (Man) 1 Monocytes % (Manual) 4 Abs Neuts (Manual) 23.0 H Lymphocytes # (Manual) 0.5 L Atyp Lymphs # (Manual) 0.2 Monocytes # (Manual) 1.0 Toxic Vacuolation PRESENT Platelet Estimate DECREASED Plt Morphology Comment NORMAL RBC Morphology NOTED [place] Cells 2+ (3-5) Smear Tech's Comments PT INR O2 Saturation ABG pH at Pt Temp ABG pH (Temp Correct) ABG pCO2 at Pt Temp ABG pCO2 (Temp Corrct ABG pO2 at Pt Temp ABG pO2 (Temp Correct ABG HCO3 ABG Base Excess (Actual) Sodium Potassium Chloride Carbon Dioxide Anion Gap BUN Creatinine Estim Creat Clear Calc Estimated GFR POC Glucose Random Glucose Estimat Average Glucose 197 Hemoglobin A1c % 8.5 Lactic Acid Lactic Acid Fup @ 2Hr Calcium Magnesium Total Bilirubin Direct Bilirubin AST ALT Alkaline Phosphatase Troponin I High Sens B-Natriuretic Peptide Total Protein Albumin Lipase Urine Color Urine Appearance Urine pH Ur Specific Randall Urine Protein Urine Glucose (UA) Urine Ketones Urine Blood Urine Nitrite Ur Leukocyte Esterase Urine RBC Urine WBC Ur Squamous Epith Cells Amorphous Sediment Urine Bacteria Salicylates Acetaminophen Acetone, Qual Coronavirus (PCR) Hepatitis A IgM Ab Nonreactive Hep Bs Antigen Negative Hep Bs Antibody REACTIVE Hep B Core Total Ab Nonreactive Hepatitis C Ab (EIA) Reactive H Influenza Type A (PCR) Influenza Type B (PCR) RSV RNA Qual (PCR) 08/23/21 07:05 WBC RBC Hgb Hct MCV MCH MCHC RDW Plt Count MPV Immature Gran % (Auto) Neut % (Auto) Lymph % (Auto) [place] % (Auto) Eos % (Auto) Baso % (Auto) Lymph # (Auto) [place] # (Auto) Eos # (Auto) Baso # (Auto) Abs Immat Gran (auto) Absolute Neuts (auto) Absolute Nucleated RBC Nucleated RBC % (auto) Neutrophils % (Manual) Band Neutrophils % Lymphocytes % (Manual) Atypical Lymphs % (Man) Monocytes % (Manual) Abs Neuts (Manual) Lymphocytes # (Manual) Atyp Lymphs # (Manual) Monocytes # (Manual) Toxic Vacuolation Platelet Estimate Plt Morphology Comment RBC Morphology Yair Cells Smear Tech's Comments PT INR O2 Saturation ABG pH at Pt Temp ABG pH (Temp Correct) ABG pCO2 at Pt Temp ABG pCO2 (Temp Corrct ABG pO2 at Pt Temp ABG pO2 (Temp Correct ABG HCO3 ABG Base Excess (Actual) Sodium Potassium Chloride Carbon Dioxide Anion Gap BUN Creatinine Estim Creat Clear Calc Estimated GFR POC Glucose 85 Random Glucose Estimat Average Glucose Hemoglobin A1c % Lactic Acid Lactic Acid Fup @ 2Hr Calcium Magnesium Total Bilirubin Direct Bilirubin AST ALT Alkaline Phosphatase Troponin I High Sens B-Natriuretic Peptide Total Protein Albumin Lipase Urine Color Urine Appearance Urine pH Ur Specific Randall Urine Protein Urine Glucose (UA) Urine Ketones Urine Blood Urine Nitrite Ur Leukocyte Esterase Urine RBC Urine WBC Ur Squamous Epith Cells Amorphous Sediment Urine Bacteria Salicylates Acetaminophen Acetone, Qual Coronavirus (PCR) Hepatitis A IgM Ab Hep Bs Antigen Hep Bs Antibody Hep B Core Total Ab Hepatitis C Ab (EIA) Influenza Type A (PCR) Influenza Type B (PCR) RSV RNA Qual (PCR)
[2021-08-23 11:22] LABS: Glucose, Whole Blood 88 mg/dL (60-115)
--- NOTE | 2021-08-23 11:45 | PM.EVENT ---
Event Note Date of Service: 08/23/21 Event Note: GI- Consult received and chart reviewed. I was unable to see the patient as he is going down for surgery at this time. However, in reviewing the records, surgery for planned CCY for acalulous cholecystitis with subsequent associated GNR sepsis seems quite appropriate. There does not appear to be any component of choledocholithiasis/biliary obstruction on the imaging studies and therefore a preop ERCP does not appear to be indicated. I suspect the elevated LFT's and lipase are related to the sepsis and possibly some previous hypotension with some transient hypoperfusion. He may also have some cholestasis of sepsis. I will hold off on a formal consult for now. Please follow his labs postop, including LFT's, lipase, and PT/INR. 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 Thanks very much.
[2021-08-23] MEDS: Lactated Ringers 500 ML 20 ML IVCONT (12:08)
--- NOTE | 2021-08-23 13:57 | P.BOP_ITS ---
Brief Operative Note Date of Service: 08/23/21 Pre-op diagnosis: Acalculous cholecystitis Post-op diagnosis: same Procedure: Laparoscopic cholecystectomy Surgeon: Vidya Shell MD Anesthesia: GETA Was an Knife Setter Grinder Machine used for this Procedure?: Yes Knife Setter Grinder Machine: Dana Farris Estimated blood loss (mL): 30 Pathology: other (Gallbladder) Condition: stable Disposition: PACU
--- NOTE | 2021-08-23 13:58 | W.PM.OPN ---
Operative Note Operative Note Date of Service: 08/23/21 Narrative: Patient was brought into the operating room, placed on operating table in the supine position. Normal DVT prophylaxis was instituted. Patient received 2 g of IV cefotetan preoperatively. General anesthesia was induced. The abdomen was prepped and draped in the normal sterile fashion using ChloraPrep. A safety time-out was performed. Next a mixture of 1% lidocaine with epinephrine and 0.25% Marcaine plain was used to anesthetize the planned incision site in the supraumbilical position. A 11. Scalpel was used to make a 2 cm supraumbilical transverse surgical incision through which the subcutaneous tissues were dissected down to level the fascia. The fascia was grasped did between 2 Flora clamps and entered using a 11. Scalpel for about 1 cm vertically. An 0 Vicryl suture was placed on either side of the open fascia. A finger was used to bluntly gain access to the intra-abdominal cavity. A 12 mm Miller trocar was introduced into the abdomen and secured to the abdominal wall using sutures on the fascia. The abdomen was insufflated to 15 mmHg. Next a 5 mm 30 degree laparoscoped was introduced into the abdomen and used to survey the abdominal cavity which was normal. Next 3 additional 5 mm ports were placed. One port was placed in the epigastrium to the right of the falciform ligament, 2 ports were placed in the right upper quadrant 1 laterally and 1 more medially. The patient was placed in reverse Trendelenburg and left side tilted down. A grasper was placed through the right lateral port and used to grasp the fundus of the gallbladder and retracted it cephalad. Another grasper was used to grasp the infundibulum of the gallbladder retracted inferior and laterally. We cleared the cystic artery and cystic duct circumferentially and the distal 1/3 of the gallbladder with the gallbladder fossa. This gave us the critical view of safety. We placed 1 clip on the cystic artery proximal to the gallbladder and 2 clips on the cystic artery distal to the gallbladder and transected it in between clips. The cystic duct was large in size. We then continued to take the gallbladder off the gallbladder fossa in its entirety so that we could use Endo loops to ligate the cystic duct stump. We then use total of 2 endo-loops of 0 Vicryl around the distal neck proximal cystic duct to ligate the cystic duct stump. We then amputated the gallbladder. We placed the gallbladder in an Endo-Catch bag and removed from the abdomen. We then evaluated the gallbladder fossa it was hemostatic there was no evidence of any bile draining or any bleeding noted. The clips were in place on the cystic artery stump and endo-loops were in place around the cystic duct stump. We cauterized the mucosa we could see on the cystic duct stump. We then removed the 5 mm ports under direct vision there was no bleeding noted from these port sites. We desufflated the abdomen through the last remaining port and removed the last port and laparoscope. We reapproximated the fascial defect at the umbilicus using a [id number] 0 Vicryl suture and tied the original fascial sutures over that closure. There was no residual fascial defect. We placed an additional amount of local anesthetic into the fascia closure site. We closed all skin incisions with a 4 Monocryl subcuticular stitch. We cleaned and dried the skin and applied Dermabond skin glue to all skin incisions. All counts were correct at the end the case there were no complications. The patient was awake and in stable condition prior to extubation and transfer to the recovery room.
[2021-08-23] MEDS: cefoTEtan disodium 2 GM in 0.9 % Sodium Chloride 50 ML IV (15:13)
--- NOTE | 2021-08-23 15:26 | MHC.CM.PN ---
DREW DICKSON [birth year] Male 65 S/P Lap Choli. He is independent all functional mobility. He lives alone. He has a eligibility worker, Deepa Castaneda. Home with NA; which is the Pts preference. The referral has been sent out.He said that she would assist with a ride home. DP Home with JONG Castaneda to assist with transportation. CM will follow.
[2021-08-23 16:40] LABS: Glucose, Whole Blood 89 mg/dL (60-115)
[2021-08-23] MEDS: Melatonin 3 MG TABLET PO (20:23)
[2021-08-23] MEDS: 0.9 % Sodium Chloride 1,000 ML 75 ML IVCONT (20:50)
[2021-08-23 21:01] LABS: Glucose, Whole Blood 143 mg/dL (60-115)
[2021-08-24] VITALS (8 sets, daily range): BP systolic 94–125; BP diastolic 57–71; PULSE 88–103; RESP 16–20; TEMP 36.2–37.1; O2SAT 92–98
[2021-08-24] MEDS: Piperacillin Sodium/Tazobactam 3.375 GM in 0.9 % Sodium Chloride 50 ML IV ×4 (00:29→17:41)
[2021-08-24 00:37] LABS: Glucose, Whole Blood 139 mg/dL (60-115)
[2021-08-24 07:10] LABS: Hematocrit 41.1 % (42-52); Hemoglobin 13.5 g/dl (14.0-18.0); Mean Corpuscular HGB Conc 32.8 g/dl (31.0-36.0); Mean Corpuscular Hemoglobin 31.3 pg (27.0-33.0); Mean Corpuscular Volume 95.1 fL (80-98); Mean Platelet Volume 10.6 fL (9.4-12.4); Red Blood Count 4.32 X10*6/uL (4.60-5.80); Red Cell Distribution Width 13.6 % (11.0-16.0); White Blood Count 18.3 X10*3/uL (4.8-10.8)
[2021-08-24 07:24] LABS: Alanine Aminotransferase 455 U/L (0-40); Albumin Level 3.3 g/dL (3.5-5.0); Alkaline Phosphatase 251 U/L (39-117); Anion Gap 20 (12-20); Aspartate Amino Transferase 402 U/L (5-37); Bilirubin Direct 1.7 mg/dL (0.0-0.5); Bilirubin Total 2.3 mg/dL (0.0-1.0); Blood Urea Nitrogen 23 mg/dL (9-16); Calcium 7.9 mg/dL (8.4-10.2); Carbon Dioxide 19 mmol/L (22-29); Chloride 106 mmol/L (96-108); Creatinine Clr Calc Pharmacy 66.3; Estimated Glomerular Filt Rate > 60; Glucose Random 111 mg/dL (60-115); Potassium 4.5 mmol/L (3.3-5.1); Sodium 140 mmol/L (135-145); Total Protein 5.4 g/dL (6.5-8.0)
[2021-08-24 07:26] LABS: Platelet Count 77 X10*3/uL (160-400)
[2021-08-24 07:28] LABS: Glucose, Whole Blood 92 mg/dL (60-115)
[2021-08-24] MEDS: Nicotine 14 MG PATCH.TD24 TRANSDERMA (07:41)
[2021-08-24] MEDS: 0.9 % Sodium Chloride Flush 3 ML SYRINGE IVFLUSH ×3 (07:42→22:20)
--- NOTE | 2021-08-24 09:17 | HO.PM.IMPN ---
Subjective Subjective Date of Service: 08/24/21 Interval History: Feels well Minimal postop pain No N/V; tolerating diet Review of Systems Review of Systems: Yes all other systems are reviewed and are negative Physical Exam Vital Signs: Vital Signs: Last Vital Signs Temp 97.9 F 08/24/21 07:34 Pulse 94 08/24/21 07:34 Resp 18 08/24/21 07:34 BP 105/62 08/24/21 07:34 Pulse Ox 97 08/24/21 07:34 Body Mass Index 23.7 Gen: in no acute distress HEENT: sclera anicteric, moist mucus membranes Neck: supple Lungs: clear to auscultation bilaterally Heart: regular rate and rhythm, no murmurs Abd: soft, lap tomeka incisions C/D/I Ext: no edema Skin: warm/well-perfused Neuro: alert and oriented x3, no focal findings Psych: appropriate affect Objective Data Active Medications Albuterol Sulfate (Albuterol Sulfate 90 Mcg 8 Gm Inhaler) 2 puff INHALE RQ4H PRN PRN Reason: shortness of breath/wheeze Dextrose (Dextrose 50 % 25 Gm/50 Ml Vial) 25 gm IVPUSH Q15M PRN; Protocol PRN Reason: per Hypoglycemia Standing Ord. Glucose (Glucose Gel 15 Gm Gel..Gram.) 15 gm PO Q15M PRN; Protocol PRN Reason: per Hypoglycemia Standing Ord. Piperacillin Sod/Tazobactam (Sod 3.375 gm/ Sodium Chloride) 50 mls @ 100 mls/hr IV Q6H [facility] Last Infusion: 08/24/21 07:30 Dose: 0 mls/hr Documented by: ALLI Sodium Chloride (Ns) 1,000 mls @ 75 mls/hr IVCONT .[id number] [facility] Last Admin: 08/23/21 20:50 Dose: 75 mls/hr Documented by: KENNA Insulin Human Lispro (Insulin Lispro 100 Unit/Ml 3 Ml Vial) 0 unit SUBCUT Q6H [facility]; Protocol Last Admin: 08/24/21 07:33 Dose: Not Given Documented by: ALLI Non-Admin Reason: No Insulin Coverage Melatonin (Melatonin 3 Mg Tablet) 3 mg PO BEDTIME PRN PRN Reason: Insomnia Last Admin: 08/23/21 20:23 Dose: 3 mg Documented by: KENNA Morphine Sulfate (Morphine Sulfate 4 Mg/Ml Cartridge) 3 mg IVPUSH Q4H PRN; Protocol PRN Reason: Pain, Severe (Pain Scale 7-10) Nicotine (Nicotine 14 Mg Patch.Td24) 14 mg TRANSDERMA DAILY [facility] Last Admin: 08/24/21 07:41 Dose: 14 mg Documented by: ALLI Ondansetron HCl (Ondansetron Hcl 4 Mg/2 Ml Vial) 4 mg IVPUSH Q8H PRN PRN Reason: Nausea and Vomiting Last Admin: 08/23/21 04:04 Dose: 4 mg Documented by: BALWINDER Oxycodone HCl (Oxycodone Hcl Immed Release 5 Mg Tablet) 5 mg PO Q3H PRN PRN Reason: Pain, Moderate (Pain Scale 4-6 Oxycodone HCl (Oxycodone Hcl Immed Release 5 Mg Tablet) 10 mg PO Q3H PRN PRN Reason: Pain, Severe (Pain Scale 7-10) Sodium Chloride (0.9 % Sodium Chloride Flush 3 Ml Syringe) 3 ml IVFLUSH QSHIFT [facility] Last Admin: 08/24/21 07:42 Dose: 3 ml Documented by: ALLI Tiotropium Fischer (Tiotropium Fischer 18 Mcg Cap.W.Dev) 1 puff INHALE RDAILY [facility] Last Admin: 08/24/21 08:02 Dose: 1 puff Documented by: BARBARA Labs CBC & Chem 7: 08/24/21 06:31 08/24/21 06:31 Labs: Laboratory Results - last 24 hr 08/23/21 08/23/21 08/23/21 06:50 11:06 16:34 MCV MCH MCHC RDW Plt Count MPV Absolute Nucleated RBC Nucleated RBC % (auto) Anion Gap Estim Creat Clear Calc Estimated GFR POC Glucose 88 89 Random Glucose Calcium Total Bilirubin Direct Bilirubin AST ALT Alkaline Phosphatase Total Protein Albumin Hepatitis A IgM Ab Nonreactive Hep Bs Antigen Negative Hep Bs Antibody REACTIVE Hep B Core Total Ab Nonreactive Hepatitis C Ab (EIA) Reactive H 08/23/21 08/24/21 08/24/21 20:50 00:33 06:31 MCV 95.1 MCH 31.3 MCHC 32.8 RDW 13.6 Plt Count 77 L MPV 10.6 Absolute Nucleated RBC 0.000 Nucleated RBC % (auto) 0.0 Anion Gap Estim Creat Clear Calc Estimated GFR POC Glucose 143 H 139 H Random Glucose Calcium Total Bilirubin Direct Bilirubin AST ALT Alkaline Phosphatase Total Protein Albumin Hepatitis A IgM Ab Hep Bs Antigen Hep Bs Antibody Hep B Core Total Ab Hepatitis C Ab (EIA) 08/24/21 08/24/21 06:31 07:22 MCV MCH MCHC RDW Plt Count MPV Absolute Nucleated RBC Nucleated RBC % (auto) Anion Gap 20 Estim Creat Clear Calc 66.3 Estimated GFR > 60 POC Glucose 92 Random Glucose 111 Calcium 7.9 L Total Bilirubin 2.3 H Direct Bilirubin 1.7 H AST 402 H ALT 455 H Alkaline Phosphatase 251 H Total Protein 5.4 L Albumin 3.3 L Hepatitis A IgM Ab Hep Bs Antigen Hep Bs Antibody Hep B Core Total Ab Hepatitis C Ab (EIA) Microbiology Microbiology Results: Microbiology 08/22/21 13:12 Blood Culture - Preliminary Blood - Venous Prelim: GNR Gram Stain only 08/22/21 13:26 Blood Culture - Preliminary Blood - Venous Prelim: GNR Gram Stain only Assessment and Plan (1) Acute acalculous cholecystitis: Status: Acute (2) Pancreatitis: Status: Acute Assessment and Plan: hospital d#3 65yo M with DM2, HTN, CAD s/p CABG 15 yr ago admitted with severe sepsis due to acute acalculous cholecystitis, complicated by GNR bacteremia s/p lap tomeka 08/23/21 # severe sepsis # acute acalculous cholecystitis # GNR bacteremia # hyperlipasemia - pip/pacheco d#3, follow BCx to transition to PO ABX upon d/c home - LFTs improved - no evidence of obstructing stone on MRCP - no radiographic evidence of pancreatitis - POD #1 lap tomeka # AGMA - due to lactic acidosis from sepsis, resolved p fluid resuscitation # HCV Ab positive - check viral load; pt aware of this diagnosis, was never treated but thinks he does not have active infection # DM2, A1c 8.5 - correction-dose lispro; on empagliflozin, MTF + glargine at home # CAD - on ASA, statin, and lisinopril # hx of HTN - holding home lisinopril # COPD - continue tiotropium, prn albuterol # tobacco abuse - NRT # VTE ppx - SCDs Quality Stroke Does the patient have a stroke diagnosis?: No VTE Prior VTE?: No VTE Risk Level:: Medical - moderate - high VTE Device Contraindication: N/A - Device Ordered VTE Drug Contraindication: Patient Refused
--- NOTE | 2021-08-24 10:08 | P.PNGS_ITS ---
Subjective Subjective Date of Service: 08/24/21 Interval history: Feels well, no nausea, incisional pain present if he coughs. Feels ready for discharge. Physical Exam Vital Signs: Vital Signs: Last Vital Signs Temp 97.9 F 08/24/21 07:34 Pulse 94 08/24/21 07:34 Resp 18 08/24/21 07:34 BP 105/62 08/24/21 07:34 Pulse Ox 97 08/24/21 07:34 Body Mass Index 23.7 Const: General: cooperative, no acute distress and alert Resp: Effort & Inspection: normal respiratory effort Auscultation: clear to auscultation bilaterally Cardio: Rate: regular rate Rhythm: regular rhythm GI: Other: Round, soft, normoactive bowel sounds, appropriate incisional tenderness Procedures Date of Service Date of Service: 08/24/21 Progress Note: A&P Assessment and plan (1) Acute acalculous cholecystitis: Status: Acute (2) Status post laparoscopic cholecystectomy: Status: Acute Assessment and Plan: Day 1 post laparoscopic cholecystectomy. He is doing well postoperatively and can be discharged when stable from a medical perspective. He should follow up with Dr. Shell/General surgery in about 2 weeks. Fall Risk Details Current Medications: Current Medications Albuterol Sulfate (Albuterol Sulfate 90 Mcg 8 Gm Inhaler) 2 puff INHALE RQ4H PRN PRN Reason: shortness of breath/wheeze Dextrose (Dextrose 50 % 25 Gm/50 Ml Vial) 25 gm IVPUSH Q15M PRN; Protocol PRN Reason: per Hypoglycemia Standing Ord. Glucose (Glucose Gel 15 Gm Gel..Gram.) 15 gm PO Q15M PRN; Protocol PRN Reason: per Hypoglycemia Standing Ord. Piperacillin Sod/Tazobactam (Sod 3.375 gm/ Sodium Chloride) 50 mls @ 100 mls/hr IV Q6H [facility] Last Infusion: 08/24/21 07:30 Dose: Infused Documented by: Sodium Chloride (Ns) 1,000 mls @ 75 mls/hr IVCONT .[id number] [facility] Last Admin: 08/23/21 20:50 Dose: 75 mls/hr Documented by: Insulin Human Lispro (Insulin Lispro 100 Unit/Ml 3 Ml Vial) 0 unit SUBCUT Q6H [facility]; Protocol Last Admin: 08/24/21 07:33 Dose: Not Given Documented by: Melatonin (Melatonin 3 Mg Tablet) 3 mg PO BEDTIME PRN PRN Reason: Insomnia Last Admin: 08/23/21 20:23 Dose: 3 mg Documented by: Morphine Sulfate (Morphine Sulfate 4 Mg/Ml Cartridge) 3 mg IVPUSH Q4H PRN; Protocol PRN Reason: Pain, Severe (Pain Scale 7-10) Nicotine (Nicotine 14 Mg Patch.Td24) 14 mg TRANSDERMA DAILY [facility] Last Admin: 08/24/21 07:41 Dose: 14 mg Documented by: Ondansetron HCl (Ondansetron Hcl 4 Mg/2 Ml Vial) 4 mg IVPUSH Q8H PRN PRN Reason: Nausea and Vomiting Last Admin: 08/23/21 04:04 Dose: 4 mg Documented by: Oxycodone HCl (Oxycodone Hcl Immed Release 5 Mg Tablet) 5 mg PO Q3H PRN PRN Reason: Pain, Moderate (Pain Scale 4-6 Oxycodone HCl (Oxycodone Hcl Immed Release 5 Mg Tablet) 10 mg PO Q3H PRN PRN Reason: Pain, Severe (Pain Scale 7-10) Sodium Chloride (0.9 % Sodium Chloride Flush 3 Ml Syringe) 3 ml IVFLUSH QSHIFT [facility] Last Admin: 08/24/21 07:42 Dose: 3 ml Documented by: Tiotropium [place] (Tiotropium [place] 18 Mcg Cap.W.Dev) 1 puff INHALE RDAILY [facility] Last Admin: 08/24/21 08:02 Dose: 1 puff Documented by: Time Spent With Patient Time: Total time spent is greater than 50% in coordination of care (as documented) at patient's floor/unit and/or counseling patient: Time with patient: less than 15 minutes Quality Stroke Does the patient have a stroke diagnosis?: No VTE Prior VTE?: No VTE Risk Level:: Medical - moderate - high VTE Device Contraindication: N/A - Device Ordered VTE Drug Contraindication: Patient Refused
[2021-08-24] MEDS: 0.9 % Sodium Chloride 1,000 ML 75 ML IVCONT (10:28)
--- NOTE | 2021-08-24 10:32 | HO.POSTANES ---
Post Anesthesia Evaluation Post Anesthesia Evaluation Vital Signs: Vital Signs Temp Pulse Resp BP Pulse Ox 08/24/21 07:34 97.9 F 94 18 105/62 97 08/24/21 04:43 102/62 08/24/21 03:13 97.1 F 88 96 08/23/21 23:39 97.7 F 85 16 99/64 95 Anesthesia: General Endotracheal-GETA Mental Status: Awake Pain Control: Satisfactory Nausea/Vomiting: None Hydration: Adequate Anesthesia-Related Issues: No Anes. Related Issues
[2021-08-24 11:21] LABS: Glucose, Whole Blood 127 mg/dL (60-115)
[2021-08-24] MEDS: oxyCODONE HCl Immed Release 5 MG TABLET 10 MG PO (16:12)
[2021-08-24 16:24] LABS: Glucose, Whole Blood 123 mg/dL (60-115)
[2021-08-24 21:36] LABS: Glucose, Whole Blood 173 mg/dL (60-115)
[2021-08-24] MEDS: Morphine Sulfate 4 MG/ML CARTRIDGE 3 MG IVPUSH (22:18)
[2021-08-24] MEDS: Melatonin 3 MG TABLET PO (22:18)
[2021-08-25] VITALS (10 sets, daily range): BP systolic 105–137; BP diastolic 63–77; PULSE 50–119; RESP 14–18; TEMP 36.6–37.2; O2SAT 93–97
[2021-08-25] MEDS: 0.9 % Sodium Chloride 1,000 ML 75 ML IVCONT ×2 (00:24→12:49)
[2021-08-25 01:06] LABS: Glucose, Whole Blood 150 mg/dL (60-115)
[2021-08-25] MEDS: Piperacillin Sodium/Tazobactam 3.375 GM in 0.9 % Sodium Chloride 50 ML IV ×2 (01:20→07:47)
--- NOTE | 2021-08-25 01:55 | PC.NURSE ---
Addendum entered by Frantz Oshea RN 08/25/21 02:02: Metoprolol 12.5 mg PO admin and Magnesium STAT ordered. Original Note: 01:41: Pt tele indicated episode of ventricular tachycardia for one minute 22 sec. Valsalvar technique performed and returned to sinus tach w/frequent PVCs. Pt assessed to be stable: denied chest pain, A&Ox3, denied SOB. O2 87% on RA. Raised to highfowlers improved 92%. Pt placed on 1 L of O2 via nasal cannula w/ positive effect. Otherwise VSS. Hospitalist Dr. Fatima informed. Will contiue to monitor and report.
[2021-08-25] MEDS: Metoprolol Tartrate 12.5 MG HALFTAB PO ×2 (02:06→15:00)
[2021-08-25 02:39] LABS: Magnesium 1.6 mg/dL (1.6-2.6)
[2021-08-25] MEDS: oxyCODONE HCl Immed Release 5 MG TABLET PO ×3 (03:18→20:15)
--- NOTE | 2021-08-25 06:09 | PM.EVENT ---
Event Note Date of Service: 08/25/21 Event Note: Sustained Vtach lasting > 1 min, assymptomatic, broke with valsalva. Mag 1.6 getting 2 grams, Metoprolol 12.5 bid and cardiology consultation.
[2021-08-25] MEDS: Magnesium Sulfate/H2O 2 GM/50 ML PIGGYBACK IV (06:37)
[2021-08-25 06:38] LABS: Hematocrit 39.8 % (42-52); Hemoglobin 13.5 g/dl (14.0-18.0); Mean Corpuscular HGB Conc 33.9 g/dl (31.0-36.0); Mean Corpuscular Hemoglobin 31.3 pg (27.0-33.0); Mean Corpuscular Volume 92.3 fL (80-98); Mean Platelet Volume 10.2 fL (9.4-12.4); Red Blood Count 4.31 X10*6/uL (4.60-5.80); Red Cell Distribution Width 13.5 % (11.0-16.0); White Blood Count 10.4 X10*3/uL (4.8-10.8)
[2021-08-25 06:41] LABS: Platelet Count 67 X10*3/uL (160-400)
[2021-08-25 06:43] LABS: INTERNATIONAL NORM RATIO 1.2 (0.9-1.1); Prothrombin Time 14.2 SEC (9.9-13.0)
[2021-08-25 07:08] LABS: Alanine Aminotransferase 299 U/L (0-40); Albumin Level 3.1 g/dL (3.5-5.0); Alkaline Phosphatase 341 U/L (39-117); Anion Gap 15 (12-20); Aspartate Amino Transferase 169 U/L (5-37); Bilirubin Total 1.4 mg/dL (0.0-1.0); Blood Urea Nitrogen 20 mg/dL (9-16); Calcium 7.8 mg/dL (8.4-10.2); Carbon Dioxide 20 mmol/L (22-29); Chloride 103 mmol/L (96-108); Creatinine Clr Calc Pharmacy 68.9; Estimated Glomerular Filt Rate > 60; Glucose Random 160 mg/dL (60-115); Lipase 66 U/L (8-78); Potassium 3.7 mmol/L (3.3-5.1); Sodium 134 mmol/L (135-145); Total Protein 5.3 g/dL (6.5-8.0)
[2021-08-25 07:29] LABS: Glucose, Whole Blood 146 mg/dL (60-115)
[2021-08-25 07:39] LABS: B Type Natriuretic Peptide 574 pg/mL (<100)
[2021-08-25] MEDS: 0.9 % Sodium Chloride Flush 3 ML SYRINGE IVFLUSH ×2 (07:47→15:00)
[2021-08-25] MEDS: cefTRIAXone sodium 1 GM in 0.9 % Sodium Chloride 50 ML IV (08:32)
[2021-08-25] MEDS: Potassium Chloride/H20 10 MEQ/100 ML PIGGYBACK 100 MEQ IV ×2 (08:37→09:40)
[2021-08-25] MEDS: Nicotine 14 MG PATCH.TD24 TRANSDERMA (08:37)
[2021-08-25 11:25] LABS: Glucose, Whole Blood 234 mg/dL (60-115)
--- NOTE | 2021-08-25 11:43 | PM.CNCAR ---
History of Present Illness History of Present Illness Date of Service: 08/25/21 Chief complaint: Sepsis/ cholecystitis/pancreatitis Narrative: This is a cardiology consultation regarding ventricular tachycardia noted on telemetry. He has a history of diabetes, hypertension coronary artery disease. He underwent coronary artery bypass surgery about 15+ years ago. 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 He originally came for abdominal pain. Diagnosed to have acalculous cholecystitis. This led to a laparoscopic cholecystectomy. This was performed 08/23. On telemetry, he was noted to have a 1 minute episode of ventricular tachycardia and another short episode of 21 beats. Patient states that he did not have any palpitations or any other symptoms around that time. Even prior to this, he has not had any cardiac symptoms like angina or shortness of breath or anything else at all. Review of Systems Review of Systems: Yes all other systems are reviewed and are negative Cardiovascular: Cardiovascular: Reports as per HPI, Reports no additional cardiovascular complaints, Denies acrocyanosis, Denies cool extremities, Denies painful fingertips, Denies chest pain, Denies chest pain at rest, Denies diaphoresis, Denies syncope, Denies irregular heart rhythm, Denies claudication, Denies leg edema, Denies lightheadedness, Denies palpitations and Denies dyspnea Respiratory: Respiratory: Denies dyspnea Neurologic: Denies syncope Endocrine: Endocrine: Denies palpitations PMFSH Past Medical History Medical History Coronary artery disease Diabetes Hypercholesterolemia Hypertension Surgical History Surgical History History of coronary artery bypass graft x 1 Social History Social History Household Members: None Housing: Apartment Do you presently have visiting nurse or other home services: No Unable to assess alcohol history related to: Unknown Patient Tobacco Use Status: Former Tobacco user Quit Date: 08/19/2021 Tobacco use type: Cigarette Cigarette Packs Per Day: 1 Cigarettes Per Day: 20 Years Smoked: 40 Use of substances other than those prescribed or required for medical reasons: No Currently Displaying Signs/Symptoms of Drug Intoxication Withdrawal: No Any prior treatment program specific to substance use: No Have you been hit, kicked, punched, or otherwise hurt by someone within the past year? If so, by whom?: No Do you feel safe in your current relationship?: No Is there a partner from a previous relationship who is making you feel unsafe now?: No Are you made to feel afraid or neglected: No Are you DNR?: No Advance Directives: No Advance Directives Information Provided: No Do you have thoughts of harming others: None Do you have a plan to hurt others: No Plan Recently lost weight without trying: No How much weight loss: Unsure Eating poorly because of decreased appetite: Yes Nutrition screen score: 3 Nutrition Risks: No Nutritional Risk Poor oral hygiene: Yes service: Yes Current occupational status: retired [employer] Allergies Allergy/AdvReac Type Severity Reaction Status Date / Time No Known Allergies Allergy Verified 08/22/21 12:22 Active Medications: Current Medications Albuterol Sulfate (Albuterol Sulfate 90 Mcg 8 Gm Inhaler) 2 puff INHALE RQ4H PRN PRN Reason: shortness of breath/wheeze Dextrose (Dextrose 50 % 25 Gm/50 Ml Vial) 25 gm IVPUSH Q15M PRN; Protocol PRN Reason: per Hypoglycemia Standing Ord. Docusate Sodium (Docusate Sodium 100 Mg Capsule) 100 mg PO BID [facility] Glucose (Glucose Gel 15 Gm Gel..Gram.) 15 gm PO Q15M PRN; Protocol PRN Reason: per Hypoglycemia Standing Ord. Sodium Chloride (Ns) 1,000 mls @ 75 mls/hr IVCONT .[id number] [facility] Last Admin: 08/25/21 00:24 Dose: 75 mls/hr Documented by: Ceftriaxone Sodium 1 gm/ (Sodium Chloride) 50 mls @ 100 mls/hr IV Q24H [facility] Last Infusion: 08/25/21 09:23 Dose: Infused Documented by: Insulin Human Lispro (Insulin Lispro 100 Unit/Ml 3 Ml Vial) 0 unit SUBCUT Q6H [facility]; Protocol Last Admin: 08/25/21 11:22 Dose: Not Given Documented by: Melatonin (Melatonin 3 Mg Tablet) 3 mg PO BEDTIME PRN PRN Reason: Insomnia Last Admin: 08/24/21 22:18 Dose: 3 mg Documented by: Metoprolol Tartrate (Metoprolol Tartrate 12.5 Mg Halftab) 12.5 mg PO Q12H [facility]; Protocol Last Admin: 08/25/21 02:06 Dose: 12.5 mg Documented by: Morphine Sulfate (Morphine Sulfate 4 Mg/Ml Cartridge) 3 mg IVPUSH Q4H PRN; Protocol PRN Reason: Pain, Severe (Pain Scale 7-10) Last Admin: 08/24/21 22:18 Dose: 3 mg Documented by: Nicotine (Nicotine 14 Mg Patch.Td24) 14 mg TRANSDERMA DAILY [facility] Last Admin: 08/25/21 08:37 Dose: 14 mg Documented by: Ondansetron HCl (Ondansetron Hcl 4 Mg/2 Ml Vial) 4 mg IVPUSH Q8H PRN PRN Reason: Nausea and Vomiting Last Admin: 08/23/21 04:04 Dose: 4 mg Documented by: Oxycodone HCl (Oxycodone Hcl Immed Release 5 Mg Tablet) 5 mg PO Q3H PRN PRN Reason: Pain, Moderate (Pain Scale 4-6 Last Admin: 08/25/21 03:18 Dose: 5 mg Documented by: Oxycodone HCl (Oxycodone Hcl Immed Release 5 Mg Tablet) 10 mg PO Q3H PRN PRN Reason: Pain, Severe (Pain Scale 7-10) Last Admin: 08/24/21 16:12 Dose: 10 mg Documented by: Polyethylene Glycol (Polyethylene Glycol 3350 17 Gm Powd.Pack) 17 gm PO DAILY PRN PRN Reason: Constipation Sodium Chloride (0.9 % Sodium Chloride Flush 3 Ml Syringe) 3 ml IVFLUSH QSHIFT [facility] Last Admin: 08/25/21 07:47 Dose: 3 ml Documented by: Tiotropium Solen (Tiotropium [place] 18 Mcg Cap.W.Dev) 1 puff INHALE RDAILY [facility] Last Admin: 08/25/21 07:31 Dose: 1 puff Documented by: Home Medications Medication Instructions Recorded Confirmed Last Taken Type albuterol sulfate 90 mcg/actuation 2 puff INHALATION Q6H PRN 08/22/21 08/22/21 Unknown History aerosol inhaler aspirin 81 mg chewable tablet 81 mg PO DAILY 08/22/21 08/22/21 Unknown History atorvastatin 80 mg tablet 80 mg PO BEDTIME 08/22/21 08/22/21 Unknown History empagliflozin 25 mg tablet 12.5 mg PO DAILY 08/22/21 08/22/21 Unknown History insulin glargine 100 unit/mL (3 40 unit SUBCUT BEDTIME 08/22/21 08/22/21 Unknown History mL) subcutaneous pen lisinopril 2.5 mg tablet 2.5 mg PO DAILY 08/22/21 08/22/21 Unknown History metformin 1,000 mg tablet 1,000 mg PO BID 08/22/21 08/22/21 Unknown History mirtazapine 30 mg tablet 30 mg PO BEDTIME 08/22/21 08/22/21 Unknown History nicotine (polacrilex) 4 mg buccal 4 mg BUCCAL Q2H PRN 08/22/21 08/22/21 Unknown History lozenge omeprazole 20 mg capsule,delayed 20 mg PO DAILY 08/22/21 08/22/21 Unknown History release ramelteon 8 mg tablet 8 mg PO BEDTIME 08/22/21 08/22/21 Unknown History semaglutide 1 mg/dose (4 mg/3 mL) 1 mg SUBCUT QWEEK 08/22/21 08/22/21 Unknown History subcutaneous pen injector thiamine HCl (vitamin B1) 100 mg 100 mg PO DAILY 08/22/21 08/22/21 Unknown History tablet tiotropium bromide 2.5 2 puff INHALATION DAILY 08/22/21 08/22/21 Unknown History mcg/actuation mist for inhalation Physical Exam Vital Signs: Vital Signs: Last Vital Signs Temp 97.8 F 08/25/21 08:00 Pulse 73 08/25/21 08:00 Resp 18 08/25/21 08:00 BP 105/63 08/25/21 08:00 Pulse Ox 96 08/25/21 08:00 Body Mass Index 23.7 Const: General: cooperative and no acute distress HENMT: Other: Unremarkable Neck: Neck: Yes normal visual inspection Chest: Chest palpation & inspection: normal inspection of the chest Resp: Auscultation: clear to auscultation bilaterally, no crackles and no wheezes Cardio: Jugular venous distension: no JVD Palpation: normal PMI Heart sounds: S1 normal heart sound present, S2 normal heart sound present, no gallops, no murmurs and no rubs GI: Palpation (GI): Soft to palpation Back/Spine/Pelvis: Other: unremarkable Skin: General skin exam: no rashes or lesions noted Neuro: Cranial nerves: Yes Other cranial nerve findings present Extrem: General: Yes no clubbing, cyanosis or edema Psych: Mental Status: other Results Labs and Meds Result diagrams: 08/25/21 06:13 08/25/21 06:13 Lab results: Laboratory Results - last 24 hr 08/24/21 08/24/21 08/25/21 16:21 21:04 01:02 WBC RBC Hgb Hct MCV MCH MCHC RDW Plt Count MPV Absolute Nucleated RBC Nucleated RBC % (auto) PT INR Sodium Potassium Chloride Carbon Dioxide Anion Gap BUN Creatinine Estim Creat Clear Calc Estimated GFR POC Glucose 123 H 173 H 150 H Random Glucose Calcium Magnesium Total Bilirubin AST ALT Alkaline Phosphatase B-Natriuretic Peptide Total Protein Albumin Lipase 08/25/21 08/25/21 08/25/21 02:11 06:13 06:13 WBC 10.4 RBC 4.31 L Hgb 13.5 L Hct 39.8 L MCV 92.3 MCH 31.3 MCHC 33.9 RDW 13.5 Plt Count 67 L MPV 10.2 Absolute Nucleated RBC 0.000 Nucleated RBC % (auto) 0.0 PT INR Sodium 134 L Potassium 3.7 Chloride 103 Carbon Dioxide 20 L Anion Gap 15 BUN 20 H Creatinine 1.02 Estim Creat Clear Calc 68.9 Estimated GFR > 60 POC Glucose Random Glucose 160 H D Calcium 7.8 L Magnesium 1.6 Total Bilirubin 1.4 H AST 169 H ALT 299 H Alkaline Phosphatase 341 H D B-Natriuretic Peptide Total Protein 5.3 L Albumin 3.1 L Lipase 66 08/25/21 08/25/21 08/25/21 06:13 06:13 07:16 WBC RBC Hgb Hct MCV MCH MCHC RDW Plt Count MPV Absolute Nucleated RBC Nucleated RBC % (auto) PT 14.2 H INR 1.2 H Sodium Potassium Chloride Carbon Dioxide Anion Gap BUN Creatinine Estim Creat Clear Calc Estimated GFR POC Glucose 146 H Random Glucose Calcium Magnesium Total Bilirubin AST ALT Alkaline Phosphatase B-Natriuretic Peptide 574 H Total Protein Albumin Lipase 08/25/21 11:20 WBC RBC Hgb Hct MCV MCH MCHC RDW Plt Count MPV Absolute Nucleated RBC Nucleated RBC % (auto) PT INR Sodium Potassium Chloride Carbon Dioxide Anion Gap BUN Creatinine Estim Creat Clear Calc Estimated GFR POC Glucose 234 H Random Glucose Calcium Magnesium Total Bilirubin AST ALT Alkaline Phosphatase B-Natriuretic Peptide Total Protein Albumin Lipase ECG Interpretation: EKG with sinus rhythm at 91/minute; nonspecific interventricular conduction delay. Assessment and Plan (1) Ventricular tachycardia: Status: Acute (2) Atherosclerotic cardiovascular disease: Status: Acute Based on the hospitalist's note, it seems that the arrhythmia broke with Valsalva. On evaluation telemetry, there were 2 runs which are broad complex. One of them was almost a minute and the other 1 is 21 beats. Difficult to say if it is supraventricular with aberrancy or ventricular tachycardia. With his coronary history, ventricular tachycardia certainly possible. The initial beat during the long run could have been a PAC based on morphology which will point more towards supraventricular etiology but again can not be definitive. Agree with beta-toshia use as you are currently doing. Echocardiogram tomorrow. We will then decide on ischemia workup. hsTrop 9.2. Procedures Date of Service Date of Service: 08/25/21
--- NOTE | 2021-08-25 11:43 | HO.PM.IMPN ---
Subjective Subjective Date of Service: 08/25/21 Interval History: 9 beats VT at 9:50pm over 1min sustained VT at 1:40am 21 beats VT at 8:50am no symptoms no abd pain, tolerating diet Review of Systems Review of Systems: Yes all other systems are reviewed and are negative Physical Exam Vital Signs: Vital Signs: Last Vital Signs Temp 97.8 F 08/25/21 08:00 Pulse 73 08/25/21 08:00 Resp 18 08/25/21 08:00 BP 105/63 08/25/21 08:00 Pulse Ox 96 08/25/21 08:00 Body Mass Index 23.7 Gen: in no acute distress HEENT: sclera anicteric, moist mucus membranes Neck: supple Lungs: clear to auscultation bilaterally Heart: regular rate and rhythm, no murmurs Abd: soft, lap tomeka incisions C/D/I Ext: no edema Skin: warm/well-perfused Neuro: alert and oriented x3, no focal findings Psych: appropriate affect Objective Data Active Medications Albuterol Sulfate (Albuterol Sulfate 90 Mcg 8 Gm Inhaler) 2 puff INHALE RQ4H PRN PRN Reason: shortness of breath/wheeze Dextrose (Dextrose 50 % 25 Gm/50 Ml Vial) 25 gm IVPUSH Q15M PRN; Protocol PRN Reason: per Hypoglycemia Standing Ord. Docusate Sodium (Docusate Sodium 100 Mg Capsule) 100 mg PO BID [place] Glucose (Glucose Gel 15 Gm Gel..Gram.) 15 gm PO Q15M PRN; Protocol PRN Reason: per Hypoglycemia Standing Ord. Sodium Chloride (Ns) 1,000 mls @ 75 mls/hr IVCONT .[id number] [facility] Last Admin: 08/25/21 00:24 Dose: 75 mls/hr Documented by: LADY Ceftriaxone Sodium 1 gm/ (Sodium Chloride) 50 mls @ 100 mls/hr IV Q24H [facility] Last Infusion: 08/25/21 09:23 Dose: 0 mls/hr Documented by: ALLI Insulin Human Lispro (Insulin Lispro 100 Unit/Ml 3 Ml Vial) 0 unit SUBCUT Q6H [facility]; Protocol Last Admin: 08/25/21 11:22 Dose: Not Given Documented by: ALLI Non-Admin Reason: No Insulin Coverage Melatonin (Melatonin 3 Mg Tablet) 3 mg PO BEDTIME PRN PRN Reason: Insomnia Last Admin: 08/24/21 22:18 Dose: 3 mg Documented by: LADY Metoprolol Tartrate (Metoprolol Tartrate 12.5 Mg Halftab) 12.5 mg PO Q12H [facility]; Protocol Last Admin: 08/25/21 02:06 Dose: 12.5 mg Documented by: LADY Morphine Sulfate (Morphine Sulfate 4 Mg/Ml Cartridge) 3 mg IVPUSH Q4H PRN; Protocol PRN Reason: Pain, Severe (Pain Scale 7-10) Last Admin: 08/24/21 22:18 Dose: 3 mg Documented by: LADY Nicotine (Nicotine 14 Mg Patch.Td24) 14 mg TRANSDERMA DAILY [facility] Last Admin: 08/25/21 08:37 Dose: 14 mg Documented by: ALLI Ondansetron HCl (Ondansetron Hcl 4 Mg/2 Ml Vial) 4 mg IVPUSH Q8H PRN PRN Reason: Nausea and Vomiting Last Admin: 08/23/21 04:04 Dose: 4 mg Documented by: BALWINDER Oxycodone HCl (Oxycodone Hcl Immed Release 5 Mg Tablet) 5 mg PO Q3H PRN PRN Reason: Pain, Moderate (Pain Scale 4-6 Last Admin: 08/25/21 03:18 Dose: 5 mg Documented by: LADY Oxycodone HCl (Oxycodone Hcl Immed Release 5 Mg Tablet) 10 mg PO Q3H PRN PRN Reason: Pain, Severe (Pain Scale 7-10) Last Admin: 08/24/21 16:12 Dose: 10 mg Documented by: TIP Polyethylene Glycol (Polyethylene Glycol 3350 17 Gm Powd.Pack) 17 gm PO DAILY PRN PRN Reason: Constipation Sodium Chloride (0.9 % Sodium Chloride Flush 3 Ml Syringe) 3 ml IVFLUSH QSHIFT [facility] Last Admin: 08/25/21 07:47 Dose: 3 ml Documented by: ALLI Tiotropium [place] (Tiotropium [place] 18 Mcg Cap.W.Dev) 1 puff INHALE RDAILY [facility] Last Admin: 08/25/21 07:31 Dose: 1 puff Documented by: HECTOR Labs CBC & Chem 7: 08/25/21 06:13 08/25/21 06:13 Labs: Laboratory Results - last 24 hr 08/24/21 08/24/21 08/25/21 16:21 21:04 01:02 MCV MCH MCHC RDW Plt Count MPV Absolute Nucleated RBC Nucleated RBC % (auto) PT INR Anion Gap Estim Creat Clear Calc Estimated GFR POC Glucose 123 H 173 H 150 H Random Glucose Calcium Magnesium Total Bilirubin AST ALT Alkaline Phosphatase B-Natriuretic Peptide Total Protein Albumin Lipase 08/25/21 08/25/21 08/25/21 02:11 06:13 06:13 MCV 92.3 MCH 31.3 MCHC 33.9 RDW 13.5 Plt Count 67 L MPV 10.2 Absolute Nucleated RBC 0.000 Nucleated RBC % (auto) 0.0 PT INR Anion Gap 15 Estim Creat Clear Calc 68.9 Estimated GFR > 60 POC Glucose Random Glucose 160 H D Calcium 7.8 L Magnesium 1.6 Total Bilirubin 1.4 H AST 169 H ALT 299 H Alkaline Phosphatase 341 H D B-Natriuretic Peptide Total Protein 5.3 L Albumin 3.1 L Lipase 66 08/25/21 08/25/21 08/25/21 06:13 06:13 07:16 MCV MCH MCHC RDW Plt Count MPV Absolute Nucleated RBC Nucleated RBC % (auto) PT 14.2 H INR 1.2 H Anion Gap Estim Creat Clear Calc Estimated GFR POC Glucose 146 H Random Glucose Calcium Magnesium Total Bilirubin AST ALT Alkaline Phosphatase B-Natriuretic Peptide 574 H Total Protein Albumin Lipase 08/25/21 11:20 MCV MCH MCHC RDW Plt Count MPV Absolute Nucleated RBC Nucleated RBC % (auto) PT INR Anion Gap Estim Creat Clear Calc Estimated GFR POC Glucose 234 H Random Glucose Calcium Magnesium Total Bilirubin AST ALT Alkaline Phosphatase B-Natriuretic Peptide Total Protein Albumin Lipase Microbiology Microbiology Results: Microbiology 08/22/21 13:26 Blood Culture - Final Blood - Venous Klebsiella pneumoniae 08/22/21 13:12 Blood Culture - Final Blood - Venous Klebsiella pneumoniae Assessment and Plan (1) Ventricular tachycardia: Status: Acute (2) Status post laparoscopic cholecystectomy: Status: Acute (3) Acute acalculous cholecystitis: Status: Acute Assessment and Plan: hospital d#4 65yo M with DM2, HTN, CAD s/p CABG 15 yr ago admitted with severe sepsis due to acute acalculous cholecystitis, complicated by Klebsiella bacteremia s/p lap tomeka 08/23/21 VT 08/25-08/26 # VT - started on metoprolol - Cardiology consult- ?ischemia workup - TTE - cycle troponins # severe sepsis # acute acalculous cholecystitis # GNR bacteremia # hyperlipasemia - on 4th d of pip/pacheco, change to ceftriaxone today, transition to PO cefuroxime upon d/c home - LFTs improved - no evidence of obstructing stone on MRCP - no radiographic evidence of pancreatitis - POD #2 lap tomeka # thrombocytopenia - suspect due to sepsis, monitor CBC and avoid heparin # AGMA - due to lactic acidosis from sepsis, resolved p fluid resuscitation # HCV Ab positive - check viral load; pt aware of this diagnosis, was never treated but thinks he does not have active infection # DM2, A1c 8.5 - correction-dose lispro; on empagliflozin, MTF + glargine at home # CAD - on ASA, statin, and lisinopril # hx of HTN - holding home lisinopril # COPD - continue tiotropium, prn albuterol # tobacco abuse - NRT # VTE ppx - SCDs Quality Stroke Does the patient have a stroke diagnosis?: No VTE Prior VTE?: No VTE Risk Level:: Medical - moderate - high VTE Device Contraindication: N/A - Device Ordered VTE Drug Contraindication: Patient Refused
[2021-08-25] MEDS: Docusate Sodium 100 MG CAPSULE PO ×2 (11:45→20:15)
--- NOTE | 2021-08-25 12:05 | PM.PNGS ---
Subjective Subjective Date of Service: 08/25/21 Interval history: He reports no problems except for incisional soreness when he coughs. No bowel movement for a few days. He had a couple of episodes of sustained V-tach. Physical Exam Vital Signs: Vital Signs: Last Vital Signs Temp 97.8 F 08/25/21 12:00 Pulse 88 08/25/21 12:00 Resp 18 08/25/21 12:00 BP 131/77 08/25/21 12:00 Pulse Ox 97 08/25/21 12:00 Body Mass Index 23.7 Laboratory Results - last 24 hr 08/24/21 08/24/21 08/25/21 16:21 21:04 01:02 WBC RBC Hgb Hct MCV MCH MCHC RDW Plt Count MPV Absolute Nucleated RBC Nucleated RBC % (a uto) PT INR Sodium Potassium Chloride Carbon Dioxide Anion Gap BUN Creatinine Estim Creat Clear Calc Estimated GFR POC Glucose 123 H 173 H 150 H Random Glucose Calcium Magnesium Total Bilirubin AST ALT Alkaline Phosphata se B-Natriuretic Pept angelica Total Protein Albumin Lipase 08/25/21 08/25/21 08/25/21 02:11 06:13 06:13 WBC 10.4 RBC 4.31 L Hgb 13.5 L Hct 39.8 L MCV 92.3 MCH 31.3 MCHC 33.9 RDW 13.5 Plt Count 67 L MPV 10.2 Absolute Nucleated RBC 0.000 Nucleated RBC % (a uto) 0.0 PT INR Sodium 134 L Potassium 3.7 Chloride 103 Carbon Dioxide 20 L Anion Gap 15 BUN 20 H Creatinine 1.02 Estim Creat Clear Calc 68.9 Estimated GFR > 60 POC Glucose Random Glucose 160 H D Calcium 7.8 L Magnesium 1.6 Total Bilirubin 1.4 H AST 169 H ALT 299 H Alkaline Phosphata se 341 H D B-Natriuretic Pept angelica Total Protein 5.3 L Albumin 3.1 L Lipase 66 08/25/21 08/25/21 08/25/21 06:13 06:13 07:16 WBC RBC Hgb Hct MCV MCH MCHC RDW Plt Count MPV Absolute Nucleated RBC Nucleated RBC % (a uto) PT 14.2 H INR 1.2 H Sodium Potassium Chloride Carbon Dioxide Anion Gap BUN Creatinine Estim Creat Clear Calc Estimated GFR POC Glucose 146 H Random Glucose Calcium Magnesium Total Bilirubin AST ALT Alkaline Phosphata se B-Natriuretic Pept angelica 574 H Total Protein Albumin Lipase 08/25/21 11:20 WBC RBC Hgb Hct MCV MCH MCHC RDW Plt Count MPV Absolute Nucleated RBC Nucleated RBC % (a uto) PT INR Sodium Potassium Chloride Carbon Dioxide Anion Gap BUN Creatinine Estim Creat Clear Calc Estimated GFR POC Glucose 234 H Random Glucose Calcium Magnesium Total Bilirubin AST ALT Alkaline Phosphata se B-Natriuretic Pept angelica Total Protein Albumin Lipase Const: General: cooperative, comfortable and alert Resp: Effort & Inspection: normal respiratory effort Auscultation: rhonchi (Scattered) Cardio: Rate: regular rate Rhythm: regular rhythm GI: Other: Slightly round, soft, appropriately tender around incisions. Bowel sounds active Skin: Other: Warm and dry General skin exam: no rashes or lesions noted Procedures Date of Service Date of Service: 08/25/21 Progress Note: A&P Assessment and plan (1) Status post laparoscopic cholecystectomy: Status: Acute (2) Acute acalculous cholecystitis: Status: Acute Assessment and Plan: Day 2 post laparoscopic cholecystectomy for acute cholecystitis with sepsis. There are no concerning surgical issues. Will add Colace and MiraLax for constipation. Continuing on antibiotics. Episodic V-tach today- workup in progress. Fall Risk Details Current Medications: Current Medications Albuterol Sulfate (Albuterol Sulfate 90 Mcg 8 Gm Inhaler) 2 puff INHALE RQ4H PRN PRN Reason: shortness of breath/wheeze Dextrose (Dextrose 50 % 25 Gm/50 Ml Vial) 25 gm IVPUSH Q15M PRN; Protocol PRN Reason: per Hypoglycemia Standing Ord. Docusate Sodium (Docusate Sodium 100 Mg Capsule) 100 mg PO BID [facility] Last Admin: 08/25/21 11:45 Dose: 100 mg Documented by: Glucose (Glucose Gel 15 Gm Gel..Gram.) 15 gm PO Q15M PRN; Protocol PRN Reason: per Hypoglycemia Standing Ord. Sodium Chloride (Ns) 1,000 mls @ 75 mls/hr IVCONT .[id number] [facility] Last Admin: 08/25/21 00:24 Dose: 75 mls/hr Documented by: Ceftriaxone Sodium 1 gm/ (Sodium Chloride) 50 mls @ 100 mls/hr IV Q24H [facility] Last Infusion: 08/25/21 09:23 Dose: Infused Documented by: Insulin Human Lispro (Insulin Lispro 100 Unit/Ml 3 Ml Vial) 0 unit SUBCUT Q6H [facility]; Protocol Last Admin: 08/25/21 11:22 Dose: Not Given Documented by: Melatonin (Melatonin 3 Mg Tablet) 3 mg PO BEDTIME PRN PRN Reason: Insomnia Last Admin: 08/24/21 22:18 Dose: 3 mg Documented by: Metoprolol Tartrate (Metoprolol Tartrate 12.5 Mg Halftab) 12.5 mg PO Q12H [facility]; Protocol Last Admin: 08/25/21 02:06 Dose: 12.5 mg Documented by: Morphine Sulfate (Morphine Sulfate 4 Mg/Ml Cartridge) 3 mg IVPUSH Q4H PRN; Protocol PRN Reason: Pain, Severe (Pain Scale 7-10) Last Admin: 08/24/21 22:18 Dose: 3 mg Documented by: Nicotine (Nicotine 14 Mg Patch.Td24) 14 mg TRANSDERMA DAILY [facility] Last Admin: 08/25/21 08:37 Dose: 14 mg Documented by: Ondansetron HCl (Ondansetron Hcl 4 Mg/2 Ml Vial) 4 mg IVPUSH Q8H PRN PRN Reason: Nausea and Vomiting Last Admin: 08/23/21 04:04 Dose: 4 mg Documented by: Oxycodone HCl (Oxycodone Hcl Immed Release 5 Mg Tablet) 5 mg PO Q3H PRN PRN Reason: Pain, Moderate (Pain Scale 4-6 Last Admin: 08/25/21 03:18 Dose: 5 mg Documented by: Oxycodone HCl (Oxycodone Hcl Immed Release 5 Mg Tablet) 10 mg PO Q3H PRN PRN Reason: Pain, Severe (Pain Scale 7-10) Last Admin: 08/24/21 16:12 Dose: 10 mg Documented by: Polyethylene Glycol (Polyethylene Glycol 3350 17 Gm Powd.Pack) 17 gm PO DAILY PRN PRN Reason: Constipation Sodium Chloride (0.9 % Sodium Chloride Flush 3 Ml Syringe) 3 ml IVFLUSH QSHIFT [facility] Last Admin: 08/25/21 07:47 Dose: 3 ml Documented by: Tiotropium [place] (Tiotropium [place] 18 Mcg Cap.W.Dev) 1 puff INHALE RDAILY [facility] Last Admin: 08/25/21 07:31 Dose: 1 puff Documented by: Time Spent With Patient Time: Total time spent is greater than 50% in coordination of care (as documented) at patient's floor/unit and/or counseling patient: Time with patient: less than 15 minutes Quality Stroke Does the patient have a stroke diagnosis?: No VTE Prior VTE?: No VTE Risk Level:: Medical - moderate - high VTE Device Contraindication: N/A - Device Ordered VTE Drug Contraindication: Patient Refused
[2021-08-25 14:22] LABS: Troponin-I High Sensitivity 33.7 ng/L (<3.5-35.0)
[2021-08-25 16:34] LABS: Glucose, Whole Blood 164 mg/dL (60-115)
[2021-08-25] MEDS: Insulin Lispro 100 UNIT/ML 3 ML VIAL SUBCUT (16:35)
[2021-08-25 16:53] LABS: Troponin-I High Sensitivity 30.3 ng/L (<3.5-35.0)
[2021-08-25] MEDS: Melatonin 3 MG TABLET PO (20:15)
[2021-08-25 20:55] LABS: Glucose, Whole Blood 180 mg/dL (60-115)
[2021-08-26] MEDS: 0.9 % Sodium Chloride 1,000 ML 75 ML IVCONT (00:38)
[2021-08-26 00:40] LABS: Glucose, Whole Blood 146 mg/dL (60-115)
[2021-08-26] MEDS: oxyCODONE HCl Immed Release 5 MG TABLET PO (00:41)
[2021-08-26 02:26] VITALS: PULSE 88
[2021-08-26] MEDS: Metoprolol Tartrate 12.5 MG HALFTAB PO (02:26)
[2021-08-26 03:26] VITALS: BP 94/53; PULSE 86; RESP 18; TEMP 36.9; O2SAT 92
[2021-08-26 06:09] LABS: Hemoglobin 13.7 g/dl (14.0-18.0); PLT CLUMP 1
[2021-08-26 06:11] LABS: Hematocrit 39.7 % (42-52); Mean Corpuscular HGB Conc 34.5 g/dl (31.0-36.0); Mean Corpuscular Hemoglobin 31.6 pg (27.0-33.0); Mean Corpuscular Volume 91.5 fL (80-98); Mean Platelet Volume 10.4 fL (9.4-12.4); Red Blood Count 4.34 X10*6/uL (4.60-5.80); Red Cell Distribution Width 13.3 % (11.0-16.0); White Blood Count 9.6 X10*3/uL (4.8-10.8)
[2021-08-26 06:21] LABS: Platelet Count 77 X10*3/uL (160-400)
[2021-08-26 06:35] LABS: Anion Gap 18 (12-20); Blood Urea Nitrogen 16 mg/dL (9-16); Calcium 8.7 mg/dL (8.4-10.2); Carbon Dioxide 21 mmol/L (22-29); Chloride 102 mmol/L (96-108); Creatinine Clr Calc Pharmacy 83.6; Estimated Glomerular Filt Rate > 60; Glucose Random 168 mg/dL (60-115); Magnesium 1.9 mg/dL (1.6-2.6); Potassium 4.8 mmol/L (3.3-5.1); Sodium 136 mmol/L (135-145)
[2021-08-26] MEDS: cefTRIAXone sodium 1 GM in 0.9 % Sodium Chloride 50 ML IV (07:01)
[2021-08-26] MEDS: Docusate Sodium 100 MG CAPSULE PO (07:01)
[2021-08-26] MEDS: oxyCODONE HCl Immed Release 5 MG TABLET 10 MG PO ×2 (07:01→10:44)
[2021-08-26] MEDS: 0.9 % Sodium Chloride Flush 3 ML SYRINGE IVFLUSH (07:02)
[2021-08-26] MEDS: Nicotine 14 MG PATCH.TD24 TRANSDERMA (07:05)
[2021-08-26 07:18] VITALS: BP 152/84; PULSE 98; RESP 18; TEMP 36.3; O2SAT 97
--- NOTE | 2021-08-26 07:30 | CA_ITS ---
Transthoracic Echocardiogram Patient (Last, First, Middle): Hal Vale, Gender: Male Date of : 1955 Age: 65 Procedure Date: 08/26/2021 Procedure Type: Transthoracic Echocardiogram Location: [facility] Height: 172.72 cm Weight: 70.76 kg BSA: 1.84 m2 Heart Rate: bpm BP: 94 / 53 mmHg Field Geologist: YR/CP Referring MD: Gloria Velazquez MD Symptoms: Vtach + CAD Study Quality: Fair/Contrast Conclusions: - The left ventricular systolic function is borderline reduced. The visually estimated ejection fraction is between 45-50%. - The basal inferior segment is akinetic. - Normal right ventricular cavity size and systolic function. - There is mild dilatation of the ascending aorta. Findings Procedure Information Contrast agent, definity, is being given per protocol without apparent complications. Left Ventricle Normal left ventricular cavity size. There is normal left ventricular wall thickness. The left ventricular systolic function is borderline reduced. The visually estimated ejection fraction is between 45-50%. There is evidence of regional wall motion abnormalities. Abnormal diastolic function is noted. Spectral Doppler is indicative of a pseudonormal filling pattern. Elevated filling pressures. Wall Motion Rest Echo Findings The basal inferior segment is akinetic. Right Ventricle Normal right ventricular cavity size and systolic function. Atria Both atria are normal in size. Aortic Valve Normal aortic valve structure and function. There is no aortic valve stenosis. There is no aortic valve regurgitation. Mitral Valve The mitral valve appears normal. There is trace mitral valve regurgitation. There is no mitral valve stenosis. Pulmonic Valve Normal pulmonic valve structure and function. There is trace pulmonic valve regurgitation. Tricuspid Valve Normal tricuspid valve structure and function. There is trace tricuspid valve regurgitation. Normal right atrial pressure. Mild pulmonary hypertension is present. Great Vessels There is mild dilatation of the ascending aorta. Venous The inferior vena cava is normal in size and collapses greater than 50% with inspiration. Pericardium/Pleural There is no evidence of pericardial effusion. Prior Study Comparison No prior study available for comparison. Measurements 2D Linear Measurements IVSd: 1.08 0.6-0.9/0.6-1.0 cm LVIDd: 5.84 3.9-5.3/4.2-5.9 cm LVIDd Index: 3.17 2.4-3.2/2.2-3.1 cm/m2 LVIDs: 4.65 2.0-3.6 cm LVPWd: 0.74 0.7-1.1 cm Ao Root: 3.50 2.1-3.5 cm LA Diam: 4.20 2.7-3.8/3.0-4.0 cm LAIDs Index: 2.28 1.5-2.3 cm/m2 LV Mass: 260.47 67-162/88-224 g LV Mass Index: 141.56 43-95/49-115 g/m2 LVOT Diam: 2.00 3.0+(-)1.3 cm 2D Systolic Function EF 4C: 35.10 >55% EF 2C: 42.10 >55% Mitral Valve MV Pk E: 0.99 MV PK A: 0.99 MV Decel Time: 137.00 E/A: 1.00 E'Lateral: 6.64 E'Medial: 5.98 E/E' Med: 16.60 E/E' Lat: 14.90 PHT: 40.00 MVA PHT: 5.50 Decel Kerr: 7.21 Aortic Valve AoV Pk Dylan: 1.52 AoV Mn Dylan: 1.16 AoV VTI: 0.30 AoV Pk Grad: 9.00 Aov Mn Grad: 6.00 HERMINIO Cont.VTI: 1.69 LVOT LVOT Pk Dylan: 0.87 LVOT Mn Dylan: 0.55 LVOT VTI: 0.16 LVOT Pk Grad: 3.00 LVOT Mn Grad: 1.00 LVOT Diam: 2.00 LVOT Area: 3.14 Diastolic Function MV Pk E: 0.99 MV Pk A: 0.99 E/A: 1.00 E'Medial: 5.98 E/E' Med: 16.60 E' Laterial: 6.64 E/E' Lat: 14.90 Right Ventricle TAPSE (mm): 1.74 TVS' Dylan: 13.10 Tricuspid Valve TR Pk Dylan: 2.80 TR Pk Grad: 31.00 RA Press: 3.00 RVSP: 34.00 Great Vessels Aorta Ao Root-2D: 3.50 2.0-3.7 cm Ao Asc: 3.50 2.1-3.4 cm Ao Arch: 3.00 Updated in Other Vendor System with Status of Final Junior Smallwood MD electronically signed on 08/26/2021 10:37:30 AM with status of Final
[2021-08-26 07:34] LABS: Glucose, Whole Blood 160 mg/dL (60-115)
[2021-08-26] MEDS: Insulin Lispro 100 UNIT/ML 3 ML VIAL SUBCUT (07:35)
--- NOTE | 2021-08-26 10:28 | PM.PNCARD ---
Subjective Subjective Date of Service: 08/26/21 Interval history: s/p cholecystectomy denying any issues. No CP or SOB. Physical Exam Vital Signs: Last Vital Signs Temp 97.4 F 08/26/21 07:18 Pulse 98 08/26/21 07:18 Resp 18 08/26/21 07:18 BP 152/84 H 08/26/21 07:18 Pulse Ox 97 08/26/21 07:18 Body Mass Index 23.7 GENERAL APPEARANCE: in no acute distress, pleasant. NECK: no carotid bruit, no jugular venous distention. SKIN: Midnight sternotomy scar. HEART: no murmurs, regular rate and rhythm. LUNGS: clear to auscultation bilaterally. ABDOMEN: soft, nontender. EXTREMITIES: no edema. PERIPHERAL PULSES: equal. NEUROLOGIC: No gross deficits, AAO X 3 Results Labs and Meds Result diagrams: 08/26/21 05:46 08/26/21 05:46 Lab results: Laboratory Results - last 24 hr 08/25/21 08/25/21 08/25/21 11:20 13:44 16:01 WBC RBC Hgb Hct MCV MCH MCHC RDW Plt Count MPV Absolute Nucleated RBC Nucleated RBC % (auto) Sodium Potassium Chloride Carbon Dioxide Anion Gap BUN Creatinine Estim Creat Clear Calc Estimated GFR POC Glucose 234 H Random Glucose Calcium Magnesium Troponin I High Sens 33.7 D 30.3 08/25/21 08/25/21 08/26/21 16:31 20:51 00:36 WBC RBC Hgb Hct MCV MCH MCHC RDW Plt Count MPV Absolute Nucleated RBC Nucleated RBC % (auto) Sodium Potassium Chloride Carbon Dioxide Anion Gap BUN Creatinine Estim Creat Clear Calc Estimated GFR POC Glucose 164 H 180 H 146 H Random Glucose Calcium Magnesium Troponin I High Sens 08/26/21 08/26/21 08/26/21 05:46 05:46 07:15 WBC 9.6 RBC 4.34 L Hgb 13.7 L Hct 39.7 L MCV 91.5 MCH 31.6 MCHC 34.5 RDW 13.3 Plt Count 77 L MPV 10.4 Absolute Nucleated RBC 0.000 Nucleated RBC % (auto) 0.0 Sodium 136 Potassium 4.8 D Chloride 102 Carbon Dioxide 21 L Anion Gap 18 BUN 16 Creatinine 0.84 Estim Creat Clear Calc 83.6 Estimated GFR > 60 POC Glucose 160 H Random Glucose 168 H Calcium 8.7 D Magnesium 1.9 Troponin I High Sens Progress Note: A&P Assessment and plan (1) Atherosclerotic cardiovascular disease: Status: Acute (2) Ventricular tachycardia: Status: Acute Assessment and Plan: 65-year-old gentleman with background history of coronary artery bypass surgery [address] [facility]. He follows at [facility] for Cardiology. Here for acalculous cholecystitis status post cholecystectomy. He had 2 runs of wide complex tachycardia with the longest 1 being close to 1 minute. Reportedly the arrhythmia broke with Valsalva maneuver. Generally SVT breaks with Valsalva but ventricular tachycardia is also reported to be terminated with Valsalva maneuver. His echocardiogram is showing EF of 45-50% with basal inferior akinesis. He is denying any exertional chest discomfort or shortness of breath. Given his history of coronary disease and akinetic inferior wall I think the likely cause for the arrhythmia is ventricular tachycardia. In any case he was stable. I think we should maximize beta-blockade as next step. Please change him to Toprol XL 50 mg once a day. 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 He should have further workup with his corporation officer. No biomarkers to point were an acute ischemic event. Also he was in a lot of pain due to cholecystitis which can trigger arrhythmia due to sympathetic surge. Thank you for allowing me to participate in the care of your patient. Please feel free to contact me if you have any questions. Fall Risk Details Current Medications: Current Medications Albuterol Sulfate (Albuterol Sulfate 90 Mcg 8 Gm Inhaler) 2 puff INHALE RQ4H PRN PRN Reason: shortness of breath/wheeze Dextrose (Dextrose 50 % 25 Gm/50 Ml Vial) 25 gm IVPUSH Q15M PRN; Protocol PRN Reason: per Hypoglycemia Standing Ord. Docusate Sodium (Docusate Sodium 100 Mg Capsule) 100 mg PO BID [facility] Last Admin: 08/26/21 07:01 Dose: 100 mg Documented by: Glucose (Glucose Gel 15 Gm Gel..Gram.) 15 gm PO Q15M PRN; Protocol PRN Reason: per Hypoglycemia Standing Ord. Ceftriaxone Sodium 1 gm/ (Sodium Chloride) 50 mls @ 100 mls/hr IV Q24H [facility] Last Infusion: 08/26/21 07:36 Dose: Infused Documented by: Insulin Human Lispro (Insulin Lispro 100 Unit/Ml 3 Ml Vial) 0 unit SUBCUT Q6H [facility]; Protocol Last Admin: 08/26/21 07:35 Dose: 2 unit Documented by: Melatonin (Melatonin 3 Mg Tablet) 3 mg PO BEDTIME PRN PRN Reason: Insomnia Last Admin: 08/25/21 20:15 Dose: 3 mg Documented by: Metoprolol Tartrate (Metoprolol Tartrate 12.5 Mg Halftab) 12.5 mg PO Q12H [facility]; Protocol Last Admin: 08/26/21 02:26 Dose: 12.5 mg Documented by: Morphine Sulfate (Morphine Sulfate 4 Mg/Ml Cartridge) 3 mg IVPUSH Q4H PRN; Protocol PRN Reason: Pain, Severe (Pain Scale 7-10) Last Admin: 08/24/21 22:18 Dose: 3 mg Documented by: Nicotine (Nicotine 14 Mg Patch.Td24) 14 mg TRANSDERMA DAILY [facility] Last Admin: 08/26/21 07:05 Dose: 14 mg Documented by: Ondansetron HCl (Ondansetron Hcl 4 Mg/2 Ml Vial) 4 mg IVPUSH Q8H PRN PRN Reason: Nausea and Vomiting Last Admin: 08/23/21 04:04 Dose: 4 mg Documented by: Oxycodone HCl (Oxycodone Hcl Immed Release 5 Mg Tablet) 5 mg PO Q3H PRN PRN Reason: Pain, Moderate (Pain Scale 4-6 Last Admin: 08/26/21 00:41 Dose: 5 mg Documented by: Oxycodone HCl (Oxycodone Hcl Immed Release 5 Mg Tablet) 10 mg PO Q3H PRN PRN Reason: Pain, Severe (Pain Scale 7-10) Last Admin: 08/26/21 07:01 Dose: 10 mg Documented by: Polyethylene Glycol (Polyethylene Glycol 3350 17 Gm Powd.Pack) 17 gm PO DAILY PRN PRN Reason: Constipation Sodium Chloride (0.9 % Sodium Chloride Flush 3 Ml Syringe) 3 ml IVFLUSH QSHIFT [facility] Last Admin: 08/26/21 07:02 Dose: 3 ml Documented by: Tiotropium [place] (Tiotropium [place] 18 Mcg Cap.W.Dev) 1 puff INHALE RDAILY [facility] Last Admin: 08/26/21 08:42 Dose: Not Given Documented by: Time Spent With Patient Time: Total time spent is greater than 50% in coordination of care (as documented) at patient's floor/unit and/or counseling patient: Time with patient: 15 - 24 minutes Progress Note: Quality Stroke Does the patient have a stroke diagnosis?: No Procedures Date of Service Date of Service: 08/26/21
[2021-08-26 10:56] VITALS: BP 135/77; PULSE 88; RESP 18; TEMP 36.2; O2SAT 95
[2021-08-26 11:02] LABS: Glucose, Whole Blood 187 mg/dL (60-115)
--- NOTE | 2021-08-26 11:09 | PM.DS ---
DS: Providers Provider Date of Service: 08/26/21 Date of admission: 08/22/21 18:42 Primary care physician: None Physician Consults: 08/22/21 18:53 Consult to Gastroenterology Routine Consulting Provider: Seymour Arshad Reason for consultation: pancreatitis Has provider been notified: Yes Consult to General Surgery Routine Consulting Provider: Vidya Shell Reason for consultation: ccy/sepsis Has provider been notified: No 08/25/21 06:08 Consult to Cardiology Routine Consulting Provider: Maurilio Fontenot Reason for consultation: sustained vtach DS: Diagnosis Discharge Diagnosis (1) Ventricular tachycardia: Status: Acute (2) Severe sepsis: Status: Acute (3) Acute acalculous cholecystitis: Status: Acute (4) Bacteremia due to Klebsiella pneumoniae: Status: Acute (5) Status post laparoscopic cholecystectomy: Status: Acute (6) Ischemic cardiomyopathy: Status: Acute (7) Chronic HFrEF (heart failure with reduced ejection fraction): Status: Acute DS: Summary Hospital Course Hospital Course: from H+P by admitting hospitalist Oliver Cheng, 08/22/21: 65-year-old gentleman with past medical history significant for diabetes mellitus, hypertension and coronary artery bypass graft 15 years ago presented to [facility] with right-sided abdominal pain that started couple weeks ago pain improved but then reoccurred with worsened pain in last 2-3 days associated with sweating, nausea and vomiting decreased by mouth intake, unable to keep water down, in the emergency room patient noted to have significantly elevated LFTs, elevated lipase and leukocytosis CT abdomen and pelvis consistent with acute acalculous cholecystitis, pancreas unremarkable, abdominal ultrasound also showed changes consistent with cholecystitis, at present patient complaining of persistent abdominal pain and nausea and dry mouth, he denies chest pain, palpitations, shortness of breathy on arrival to emergency room patient was noted to be hypothermic Tachycardic, and tachypneic patient received several IV boluses BP remains stable patient will be admitted to medical floor with a diagnosis of sepsis likely related to gallstone pancreatitis question patient passed stone. This 65 year-old man with DM2, HTN, and CAD s/p CABG 15 yr ago was admitted with severe sepsis due to acute acalculous cholecystitis, complicated by Klebsiella bacteremia. He was treated with piperacillin/tazobactam, transitioned to ceftriaxone. There was no evidence of obstructing stone on MRCP and no radiographic evidence of pancreatitis. He was thought to have acute acalculous cholecystitis and underwent laparoscopic cholecystectomy on 08/23/21. Liver function tests improved, as did lactic acidosis. Pain resolved completely. He had some degree of thromcytopenia likely due to sepsis. HCV antibody was positive and viral load is pending at the time of discharge. On the night on 08/24/21, he developed sustained ventricular tachycardia lasting 1 minute without symptoms or hemodynamic instability. He was started on metoprolol. Cardiology was consulted. Echocardiography demonstrated mildly reduced LVEF of 45-50% with akinetic basal segment. He refused to stay for inpatient stress test, and so should see his outpatient glass beveller at the [place] as soon as possible for ischemic workup. He was discharged on metoprolol succinate 50 mg daily, 10 days of cefuroxime axetil, and nicotine replacement therapy. He should follow up with Surgery in 1 week for wound check. He should also see his primary care doctor within 1 week. Time Spent with Patient Time attestation: Total time spent providing and/or coordinating discharge services: Discharge coordination time: Greater than 30 minutes Quality: Stroke Does the patient have a stroke diagnosis?: No Physical Exam Vital Signs: Vital Signs: Last Vital Signs Temp 97.2 F 08/26/21 10:56 Pulse 88 08/26/21 10:56 Resp 18 08/26/21 10:56 BP 135/77 08/26/21 10:56 Pulse Ox 95 08/26/21 10:56 Body Mass Index 23.7 Gen: in no acute distress HEENT: sclera anicteric, moist mucus membranes Neck: supple Lungs: clear to auscultation bilaterally Heart: regular rate and rhythm, no murmurs Abd: soft, lap tomeka incisions C/D/I Ext: no edema Skin: warm/well-perfused Neuro: alert and oriented x3, no focal findings Psych: appropriate affect DS: Data Data Completed and Pending Completed studies during hospitalization [Text1]: Laboratory Results WBC 9.6 X10*3/uL (4.8-10.8) 08/26/21 05:46 RBC 4.34 X10*6/uL (4.60-5.80) L 08/26/21 05:46 Hgb 13.7 g/dl (14.0-18.0) L 08/26/21 05:46 Hct 39.7 % (42-52) L 08/26/21 05:46 MCV 91.5 fL (80-98) 08/26/21 05:46 MCH 31.6 pg (27.0-33.0) 08/26/21 05:46 MCHC 34.5 g/dl (31.0-36.0) 08/26/21 05:46 RDW 13.3 % (11.0-16.0) 08/26/21 05:46 Plt Count 77 X10*3/uL (160-400) L 08/26/21 05:46 MPV 10.4 fL (9.4-12.4) 08/26/21 05:46 Immature Gran % (Auto) Cancelled 08/23/21 06:51 Neut % (Auto) Cancelled 08/23/21 06:51 Lymph % (Auto) Cancelled 08/23/21 06:51 [place] % (Auto) Cancelled 08/23/21 06:51 Eos % (Auto) Cancelled 08/23/21 06:51 Baso % (Auto) Cancelled 08/23/21 06:51 Lymph # (Auto) Cancelled 08/23/21 06:51 [place] # (Auto) Cancelled 08/23/21 06:51 Eos # (Auto) Cancelled 08/23/21 06:51 Baso # (Auto) Cancelled 08/23/21 06:51 Abs Immat Gran (auto) Cancelled 08/23/21 06:51 Absolute Neuts (auto) Cancelled 08/23/21 06:51 Absolute Nucleated RBC 0.000 X10*3/uL (0.0-0.012) 08/26/21 05:46 Nucleated RBC % (auto) 0.0 /100WBC (0.0-0.2) 08/26/21 05:46 Neutrophils % (Manual) 74 % (45-73) H 08/23/21 06:51 Band Neutrophils % 19 % (3-5) H 08/23/21 06:51 Lymphocytes % (Manual) 2 % (20-40) L 08/23/21 06:51 Atypical Lymphs % (Man) 1 % (0-6) 08/23/21 06:51 Monocytes % (Manual) 4 % (2-11) 08/23/21 06:51 Abs Neuts (Manual) 23.0 X10*3/uL (2.2-7.9) H 08/23/21 06:51 Lymphocytes # (Manual) 0.5 X10*3/uL (0.6-4.8) L 08/23/21 06:51 Atyp Lymphs # (Manual) 0.2 x10*3/uL 08/23/21 06:51 Monocytes # (Manual) 1.0 X10*3/uL (0.0-1.2) 08/23/21 06:51 Toxic Vacuolation PRESENT 08/23/21 06:51 Platelet Estimate DECREASED (NORMAL) 08/23/21 06:51 Plt Morphology Comment NORMAL 08/23/21 06:51 RBC Morphology NOTED 08/23/21 06:51 [place] Cells 2+ (3-5) /OIF 08/23/21 06:51 Smear Tech's Comments VERIFIED 08/22/21 13:12 PT 14.2 SEC (9.9-13.0) H 08/25/21 06:13 INR 1.2 (0.9-1.1) H 08/25/21 06:13 O2 Saturation TNP 08/22/21 12:11 ABG pH at Pt Temp TNP 08/22/21 12:11 ABG pH (Temp Correct) TNP 08/22/21 12:11 ABG pCO2 at Pt Temp TNP 08/22/21 12:11 ABG pCO2 (Temp Corrct TNP 08/22/21 12:11 ABG pO2 at Pt Temp TNP 08/22/21 12:11 ABG pO2 (Temp Correct TNP 08/22/21 12:11 ABG HCO3 TNP 08/22/21 12:11 ABG Base Excess (Actual) TNP 08/22/21 12:11 Sodium 136 mmol/L (135-145) 08/26/21 05:46 Potassium 4.8 mmol/L (3.3-5.1) D 08/26/21 05:46 Chloride 102 mmol/L (96-108) 08/26/21 05:46 Carbon Dioxide 21 mmol/L (22-29) L 08/26/21 05:46 Anion Gap 18 (12-20) 08/26/21 05:46 BUN 16 mg/dL (9-16) 08/26/21 05:46 Creatinine 0.84 mg/dL (0.5-1.4) 08/26/21 05:46 Estim Creat Clear Calc 83.6 08/26/21 05:46 Estimated GFR > 60 08/26/21 05:46 POC Glucose 187 mg/dL (60-115) H 08/26/21 10:55 Random Glucose 168 mg/dL (60-115) H 08/26/21 05:46 Estimat Average Glucose 197 mg/dL 08/23/21 06:50 Hemoglobin A1c % 8.5 % 08/23/21 06:50 Lactic Acid 4.1 mmol/L (0.5-2.0) H* 08/22/21 13:12 Lactic Acid Fup @ 2Hr 2.0 mmol/L (0.5-2.0) 08/22/21 15:54 Calcium 8.7 mg/dL (8.4-10.2) D 08/26/21 05:46 Magnesium 1.9 mg/dL (1.6-2.6) 08/26/21 05:46 Total Bilirubin 1.4 mg/dL (0.0-1.0) H 08/25/21 06:13 Direct Bilirubin 1.7 mg/dL (0.0-0.5) H 08/24/21 06:31 AST 169 U/L (5-37) H 08/25/21 06:13 ALT 299 U/L (0-40) H 08/25/21 06:13 Alkaline Phosphatase 341 U/L (39-117) H D 08/25/21 06:13 Troponin I High Sens 30.3 ng/L (<3.5-35.0) 08/25/21 16:01 B-Natriuretic Peptide 574 pg/mL (<100) H 08/25/21 06:13 Total Protein 5.3 g/dL (6.5-8.0) L 08/25/21 06:13 Albumin 3.1 g/dL (3.5-5.0) L 08/25/21 06:13 Lipase 66 U/L (8-78) 08/25/21 06:13 Urine Color YELLOW 08/22/21 14:04 Urine Appearance CLEAR 08/22/21 14:04 Urine pH 5.5 (5.0-8.0) 08/22/21 14:04 Ur Specific [place] 1.010 (1.005-1.025) 08/22/21 14:04 Urine Protein NEG MG/DL (NEG-TRACE) 08/22/21 14:04 Urine Glucose (UA) >=1000 MG/DL (NEG) H 08/22/21 14:04 Urine Ketones 15 MG/DL (NEG) 08/22/21 14:04 Urine Blood NEG (NEG) 08/22/21 14:04 Urine Nitrite NEG (NEG) 08/22/21 14:04 Ur Leukocyte Esterase NEG (NEG) 08/22/21 14:04 Urine RBC 0 /HPF (0) 08/22/21 14:04 Urine WBC 0 /HPF (0-4) 08/22/21 14:04 Ur Squamous Epith Cells TRACE /LPF 08/22/21 14:04 Amorphous Sediment 1+ /LPF 08/22/21 14:04 Urine Bacteria NONE /LPF 08/22/21 14:04 Salicylates < 5.0 mg/dL (15-30) L 08/22/21 21:24 Acetaminophen < 1 mcg/mL (<30) 08/22/21 21:24 Acetone, Qual Cancelled 08/22/21 13:12 Acetone, Qual Small (Negative) H 08/22/21 13:12 Coronavirus (PCR) NEGATIVE (Negative) 08/22/21 13:12 Hepatitis A IgM Ab Nonreactive (Nonreactive) 08/23/21 06:50 Hep Bs Antigen Negative (Negative) 08/23/21 06:50 Hep Bs Antibody REACTIVE (Nonreactive) 08/23/21 06:50 Hep B Core Total Ab Nonreactive (Nonreactive) 08/23/21 06:50 Hepatitis C Ab (EIA) Reactive (Nonreactive) H 08/23/21 06:50 Influenza Type A (PCR) NEGATIVE (Negative) 08/22/21 13:12 Influenza Type B (PCR) NEGATIVE (Negative) 08/22/21 13:12 RSV RNA Qual (PCR) NEGATIVE (Negative) 08/22/21 13:12 Impressions Abdomen/Pelvis CT 08/22/21 13:54 IMPRESSION: Centrilobular emphysema without acute process. There is minimal subpleural atelectatic changes left lung base. There are calcified pleural plaques from asbestosis exposure. Lobulated liver contour with abnormal appearing left hepatic lobe. There are multiple hypodense lesions question dilated ducts versus small micronodules. Recommend ultrasound. The CBD measures 1 cm. Abnormal gallbladder. Question acalculus cholecystitis. Correlate with ultrasound. Chest CT 08/22/21 13:57 IMPRESSION: Centrilobular emphysema without acute process. There is minimal subpleural atelectatic changes left lung base. There are calcified pleural plaques from asbestosis exposure. Lobulated liver contour with abnormal appearing left hepatic lobe. There are multiple hypodense lesions question dilated ducts versus small micronodules. Recommend ultrasound. The CBD measures 1 cm. Abnormal gallbladder. Question acalculus cholecystitis. Correlate with ultrasound. Abdomen Ultrasound 08/22/21 16:03 IMPRESSION: Abnormal gallbladder wall without gallstones. Findings consistent with acalculus cholecystitis. HIDA scan may be helpful for further evaluation. Abdomen MRI 08/22/21 18:20 IMPRESSION: The gallbladder is circumferentially thick-walled with adjacent pericholecystic fluid. Acalculous cholecystitis remains a consideration. No biliary ductal dilatation. No choledocholithiasis. In addition to a few scattered subcentimeter cysts in the right lobe of liver, there is a cluster of numerous cystic structures in the superior aspect of the left lobe of liver. These do not appear to communicate with the biliary tree suggesting clustered cysts or biliary hamartomas rather than a biliary etiology. These do not have ill-defined margins or peripheral enhancement that would be expected for microabscesses. TTE 08/26/21 - The left ventricular systolic function is borderline reduced.? The visually estimated ejection fraction is between 45-50%.? ? ? - The basal inferior segment is akinetic.? - Normal right ventricular cavity size and systolic function.? ? - There is mild dilatation of the ascending aorta. ? Pending studies at discharge: Pending at discharge 08/23/21 13:36 Surgical [PTH] Routine Discharge Plan Discharge Patient Disposition: Home, Self-Care Discharge Diagnosis: Acute acalculous cholecystitis and bacteremia Ventricular tachycardia and ischemic cardiomyopathy/heart failure with mildly reduced EF Tobacco abuse Referrals: Vidya Shell MD [Physician] - 1 Week Physician,None [Primary Care Provider] - 1 Week Maurilio Fontenot MD [Physician] - 1 Week Discharge Medications: New nicotine 14 mg/24 hr Patch 24 Hour 14 mg transdermal DAILY Qty: 30 RF: 0 metoprolol succinate 50 mg tablet extended release 24 hr 50 mg PO DAILY Qty: 30 RF: 0 cefuroxime axetil 500 mg tablet 500 mg PO BID Qty: 20 RF: 0 Continued atorvastatin 80 mg Tablet 80 mg PO BEDTIME RF: 0 thiamine HCl (vitamin B1) 100 mg Tablet 100 mg PO DAILY RF: 0 mirtazapine 30 mg Tablet 30 mg PO BEDTIME RF: 0 metformin 1,000 mg Tablet 1,000 mg PO BID RF: 0 omeprazole 20 mg Capsule,Delayed Release(Dr/Ec) 20 mg PO DAILY RF: 0 aspirin 81 mg Tablet,Chewable 81 mg PO DAILY RF: 0 albuterol sulfate 90 mcg/actuation Hfa Aerosol Inhaler 2 puff INHALATION Q6H PRN (Reason: Wheezing) RF: 0 lisinopril 2.5 mg Tablet 2.5 mg PO DAILY RF: 0 nicotine (polacrilex) 4 mg Lozenge 4 mg BUCCAL Q2H PRN (Reason: Nicotine Cravings) RF: 0 ramelteon 8 mg Tablet 8 mg PO BEDTIME RF: 0 insulin glargine 100 unit/mL (3 mL) Insulin Pen 40 unit SUBCUT BEDTIME RF: 0 tiotropium bromide 2.5 mcg/actuation Mist 2 puff INHALATION DAILY RF: 0 empagliflozin 25 mg Tablet 12.5 mg PO DAILY RF: 0 semaglutide 1 mg/dose (4 mg/3 mL) Pen Injector 1 mg SUBCUT QWEEK RF: 0 Discharge Orders: Discharge Order (Routine); Ordered 08/26/21 Ordered By: Gloria Velazquez Diet: advance to usual diet and diabetic diet Activity on Discharge: As tolerated Stand Alone Forms: Patient Portal Discharge page Activity Restrictions/Additional Instructions: No lifting greater than 5-10 lb for the next 4 weeks. Patient may shower but should avoid all hot tubs baths or swimming pools. Patient should follow up with Dr. Shell in 1 weeks time frame. He should call the office at in order to schedule an appointment. He should also call Dr. Shell office with any questions or concerns such as increasing abdominal pain, persistent nausea vomiting, fever, chills, shortness of breath, chest pain, leg pain or leg swelling. Patient may resume prehospitalization medications and diet. Care Plan Goals: cure of bacteremia recovery from surgery prevention of ventricular tachycardia smoking cessation Health Concerns: Acute acalculous cholecystitis and bacteremia Ventricular tachycardia and ischemic cardiomyopathy/heart failure with mildly reduced EF Tobacco abuse Plan of Treatment: bacteremia: take CEFUROXIME 500 mg twice daily for 10 days acalculous cholecystitis: postoperative instructions as above; [place] [facility] [place] ([phone]) ventricular tachycardia: start METOPROLOL SUCCINATE 50 mg once daily and follow up with your glass beveller- call [facility] for appointment; you need an ischemic workup tobacco abuse: use nicotine patch/gum to quit Assessment: See Discharge Summary Patient Instructions: Bacteremia (DC), Tachycardia (ED), Laparoscopic Cholecystectomy (DC)
--- NOTE | 2021-08-26 11:33 | MHC.CM.PN ---
Patient has been medically cleared for dc to home today, no services. CM offered [facility] shuttle transport and Patient prefers to take the bus. Second IMM addressed with Patient and the original has been given to him and a copy placed on the chart.
[2021-08-28 20:41] LABS: HCV Log PCR <1.18 NOT DETECTED Log IU/mL (NOT DETECTED); HepC Viral Load <15 NOT DETECTED IU/mL (NOT DETECTED)
== END 2021-08-26 12:03 | disposition home or self-care (01) | DRG 853 ==
LOC: HO.ED 18:48 → HO.EDOVER 19:01 → HO.IMC 19:46
PROVIDERS: Internal Medicine; Physician Assistant; Surgery; Admitting Provider Hospitalist; Emergency Provider Emergency Medicine Emergency Medical Services; Visit Provider Family Medicine
PROC: 0FT44ZZ Resection of Gallbladder, Percutaneous Endoscopic Approach (ICD-10-PCS; CPT 47562; principal; 2021-08-23 12:30)
DX: A41.50 Gram-negative sepsis, unspecified (principal); K85.90 Acute pancreatitis without necrosis or infection, unspecified; I50.22 Chronic systolic (congestive) heart failure; K81.0 Acute cholecystitis; I47.2 Ventricular tachycardia; R65.20 Severe sepsis without septic shock; I25.10 Atherosclerotic heart disease of native coronary artery without angina pectoris; E11.65 Type 2 diabetes mellitus with hyperglycemia; J44.9 Chronic obstructive pulmonary disease, unspecified; I11.0 Hypertensive heart disease with heart failure; I25.5 Ischemic cardiomyopathy; Z20.822 Contact with and (suspected) exposure to COVID-19; Z87.891 Personal history of nicotine dependence; Z79.4 Long term (current) use of insulin; Z79.82 Long term (current) use of aspirin; Z79.899 Other long term (current) drug therapy
CPT/HCPCS: 0241U; 36415; 71260; 74177; 74183; 76705; 80048; 80053; 80076; 80143; 80179; 81001; 82009; 82248; 82803; 82947; 83036; 83605; 83690; 83735; 83880; 84484; 85007; 85025; 85027; 85610; 86704; 86706; 86709; 86803; 87040; 87077; 87186; 87205; 87340; 87522; 88304; 93005; 93306; 96361; 96365; 96375; 97161; 99024; 99285; 99291; A9585; J0696; J1100; J2270; J2370; J2405; J2543; J3010; J3475; Q9957; Q9967

== ENCOUNTER 2021-09-06 15:23 | Emergency (ER) | payer OTHER, SELFPAY ==
[2021-09-06 15:43] VITALS: PULSE 86; RESP 18; TEMP 36.8; O2SAT 95; BMI 25.0
--- NOTE | 2021-09-06 15:47 | ECG_ITS ---
Test Reason : LEG EDEMA Blood Pressure : / mmHG Vent. Rate : 086 BPM Atrial Rate : 086 BPM P-R Int : 122 ms QRS Dur : 116 ms QT Int : 376 ms P-R-T Axes : 066 -21 125 degrees QTc Int : 449 ms Normal sinus rhythm Incomplete right bundle branch block T wave abnormality, consider lateral ischemia Left anterior fascicular block Abnormal ECG No significant changes seen Referred By: Generic ED Physician Electronically Signed By:ALFREDO CANSECO MD
[2021-09-06 17:15] LABS: MANUAL DIFF FLAG NO
[2021-09-06 17:20] LABS: Basophils Absolute Auto 0.1 X10*3/uL (0.0-0.2); Basophils Percent Auto 0.9 % (0-2); Eosinophils Absolute Auto 0.1 X10*3/uL (0.0-0.4); Hematocrit 37.9 % (42-52); Imm Gran Abs Auto 0.04 X10*3/uL (0.00-0.03); Imm Gran Pct Auto 0.4 % (0.0-0.4); Lymphocytes Percent Auto 28.8 % (20-40); Mean Corpuscular HGB Conc 34.3 g/dl (31.0-36.0); Mean Corpuscular Volume 93.3 fL (80-98); Mean Platelet Volume 9.9 fL (9.4-12.4); Monocytes Absolute Auto 0.8 X10*3/uL (0.1-1.2); Monocytes Percent Auto 8.1 % (2-11); Neutrophils Absolute Auto 6.4 X10*3/uL (2.0-8.3); Neutrophils Percent Auto 60.8 % (45-73); Platelet Count 245 X10*3/uL (160-400); Red Blood Count 4.06 X10*6/uL (4.60-5.80); Red Cell Distribution Width 13.3 % (11.0-16.0); White Blood Count 10.4 X10*3/uL (4.8-10.8)
[2021-09-06 17:38] LABS: Troponin-I High Sensitivity 10.5 ng/L (<3.5-35.0)
[2021-09-06 17:39] LABS: Alanine Aminotransferase 47 U/L (0-40); Albumin Level 3.5 g/dL (3.5-5.0); Alkaline Phosphatase 342 U/L (39-117); Anion Gap 14 (12-20); Aspartate Amino Transferase 42 U/L (5-37); Bilirubin Direct 0.3 mg/dL (0.0-0.5); Bilirubin Total 0.8 mg/dL (0.0-1.0); Blood Urea Nitrogen 8 mg/dL (9-16); Calcium 9.6 mg/dL (8.4-10.2); Carbon Dioxide 34 mmol/L (22-29); Chloride 90 mmol/L (96-108); Creatinine Clr Calc Pharmacy 66.3; Estimated Glomerular Filt Rate > 60; Glucose Random 500 mg/dL (60-115); Potassium 4.8 mmol/L (3.3-5.1); Sodium 133 mmol/L (135-145); Total Protein 6.9 g/dL (6.5-8.0)
[2021-09-06 17:42] LABS: INTERNATIONAL NORM RATIO 1.2 (0.9-1.1); Prothrombin Time 13.5 SEC (9.9-13.0)
[2021-09-06 18:01] LABS: B Type Natriuretic Peptide 140 pg/mL (<100); Troponin-I High Sensitivity 10.1 ng/L (<3.5-35.0)
--- NOTE | 2021-09-06 18:11 | ED.GENADULT ---
HPI - General Adult General Chief complaint: General Medical Stated complaint: Feet swelling Time Seen by Provider: 09/06/21 17:03 History of Present Illness HPI narrative: Patient is 65 years old with a history of ventricular tachycardia. History of diabetes. Patient status post acalculous cholecystitis. Status post cholecystectomy. Patient claims he left the hospital the legs become more more swollen. Came to the ED for further evaluation. Denies any chest pain. No shortness of breath. No diaphoresis. No fever no chills. No abdominal pain. No difficulty eating. Patient denies any nausea vomiting. Patient from home. Both legs are swollen. He claims compliance with his medication. Patient unsure of the type of medication he is on. Related Data Home Medications Medication Instructions Recorded Confirmed albuterol sulfate 90 mcg/actuation 2 puff INHALATION Q6H PRN 08/22/21 08/22/21 aerosol inhaler aspirin 81 mg chewable tablet 81 mg PO DAILY 08/22/21 08/22/21 atorvastatin 80 mg tablet 80 mg PO BEDTIME 08/22/21 08/22/21 empagliflozin 25 mg tablet 12.5 mg PO DAILY 08/22/21 08/22/21 insulin glargine 100 unit/mL (3 40 unit SUBCUT BEDTIME 08/22/21 08/22/21 mL) subcutaneous pen lisinopril 2.5 mg tablet 2.5 mg PO DAILY 08/22/21 08/22/21 metformin 1,000 mg tablet 1,000 mg PO BID 08/22/21 08/22/21 mirtazapine 30 mg tablet 30 mg PO BEDTIME 08/22/21 08/22/21 nicotine (polacrilex) 4 mg buccal 4 mg BUCCAL Q2H PRN 08/22/21 08/22/21 lozenge omeprazole 20 mg capsule,delayed 20 mg PO DAILY 08/22/21 08/22/21 release ramelteon 8 mg tablet 8 mg PO BEDTIME 08/22/21 08/22/21 semaglutide 1 mg/dose (4 mg/3 mL) 1 mg SUBCUT QWEEK 08/22/21 08/22/21 subcutaneous pen injector thiamine HCl (vitamin B1) 100 mg 100 mg PO DAILY 08/22/21 08/22/21 tablet tiotropium bromide 2.5 2 puff INHALATION DAILY 08/22/21 08/22/21 mcg/actuation mist for inhalation Previous Rx's Medication Instructions Recorded cefuroxime axetil 500 mg tablet 500 mg PO BID #20 tab 08/26/21 metoprolol succinate 50 mg 50 mg PO DAILY #30 tab 08/26/21 tablet,extended release 24 hr nicotine 14 mg/24 hr daily 14 mg TRANSDERMAL DAILY #30 ea 08/26/21 transdermal patch Allergies Allergy/AdvReac Type Severity Reaction Status Date / Time No Known Allergies Allergy Verified 09/06/21 15:43 Review of Systems Review of Systems: No fever no chills. No diaphoresis. No cough no congestion or upper respiratory symptoms. Positive leg swelling All systems reviewed otherwise negative Yes all other systems are reviewed and are negative [facility] Past Medical History Medical History (Updated 09/06/21 @ 18:17 by Gia Daniels MD) Atherosclerotic cardiovascular disease Coronary artery disease Diabetes Hypercholesterolemia Hypertension Surgical History (Updated 09/06/21 @ 15:46 by Rosalba Holland RN) History of coronary artery bypass graft x 1 S/P cholecystectomy Status post laparoscopic cholecystectomy Social History Social History Household Members: None Housing: Apartment Do you presently have visiting nurse or other home services: No Unable to assess alcohol history related to: Unknown Patient Tobacco Use Status: Former Tobacco user Quit Date: 08/19/2021 Tobacco use type: Cigarette Cigarette Packs Per Day: 1 Cigarettes Per Day: 20 Years Smoked: 40 Advance Directives: No Advance Directives Information Provided: No service: Yes Current occupational status: retired Physical Exam Vital Signs: Vital Signs: Last Vital Signs Temp 98.3 F 09/06/21 15:43 Pulse 86 09/06/21 15:43 Resp 18 09/06/21 15:43 Pulse Ox 95 09/06/21 15:43 Body Mass Index 25.0 Appearance: Alert. Oriented X3. No acute distress. Eyes: Pupils equal, round and reactive to light. ENT: Pharynx normal. Neck: Normal inspection. Neck supple. No lymph nodes noted. No crepitus CVS: Normal heart rate and rhythm. Pulses normal. Normal S1 and S2 Respiratory: No respiratory distress. Breath sounds normal. No Wheezing. No rales Abdomen: Soft and nontender. No rigidity. No distention. good BS x4 Skin: Skin warm and dry. Normal skin color. Normal skin turgor. Extremities: 2+ bilateral lower extremity edema. Neurovascular intact to all extremities. No Lacerations. No Rash pulse 2 +at dorsalis pedis. Sensation over both feet intact. Skin intact. Neuro: Oriented X 3. No motor deficit. No sensory deficit. Moving all extermities. No slurred speech Medical Decision Making MDM Narrative Medical decision making narrative: Labs ordered. Patient eloped from the emergency department. Noted patient's sugar is over 500. Patient's BNP is actually lower than baseline. It is approximately 150 today. Patient's EKG showed a sinus pattern heart rate is [address] segment elevation in V1 and V2. Nonspecific T-wave flattening in V5 and V6. EKG finding is approximately the same as patient's EKG on August 22. Medical Records Medical records reviewed: Yes I reviewed the patient's medical records. Lab Data Lab results reviewed: Yes I reviewed the patient's lab results. Result diagrams: 09/06/21 17:07 09/06/21 17:05 Labs: Lab Results 09/06/21 09/06/21 09/06/21 Range/Units 17:05 17:07 17:07 WBC 10.4 (4.8-10.8) X10*3/uL RBC 4.06 L (4.60-5.80) X10*6/uL Hgb 13.0 L (14.0-18.0) g/dl Hct 37.9 L (42-52) % MCV 93.3 (80-98) fL MCH 32.0 (27.0-33.0) pg MCHC 34.3 (31.0-36.0) g/dl RDW 13.3 (11.0-16.0) % Plt Count 245 D (160-400) X10*3/uL MPV 9.9 (9.4-12.4) fL Immature Gran % (Auto) 0.4 (0.0-0.4) % Neut % (Auto) 60.8 (45-73) % Lymph % (Auto) 28.8 (20-40) % [place] % (Auto) 8.1 (2-11) % Eos % (Auto) 1.0 (0-4) % Baso % (Auto) 0.9 (0-2) % Lymph # (Auto) 3.0 (1.2-4.9) X10*3/uL [place] # (Auto) 0.8 (0.1-1.2) X10*3/uL Eos # (Auto) 0.1 (0.0-0.4) X10*3/uL Baso # (Auto) 0.1 (0.0-0.2) X10*3/uL Abs Immat Gran (auto) 0.04 H (0.00-0.03) X10*3/uL Absolute Neuts (auto) 6.4 (2.0-8.3) X10*3/uL Absolute Nucleated RBC 0.000 (0.0-0.012) X10*3/uL Nucleated RBC % (auto) 0.0 (0.0-0.2) /100WBC PT (9.9-13.0) SEC INR (0.9-1.1) Sodium 133 L (135-145) mmol/L Potassium 4.8 (3.3-5.1) mmol/L Chloride 90 L (96-108) mmol/L Carbon Dioxide 34 H (22-29) mmol/L Anion Gap 14 (12-20) BUN 8 L (9-16) mg/dL Creatinine 1.06 (0.5-1.4) mg/dL Estim Creat Clear Calc 66.3 Estimated GFR > 60 Random Glucose 500 H* (60-115) mg/dL Calcium 9.6 D (8.4-10.2) mg/dL Total Bilirubin 0.8 (0.0-1.0) mg/dL Direct Bilirubin 0.3 (0.0-0.5) mg/dL AST 42 H D (5-37) U/L ALT 47 H (0-40) U/L Alkaline Phosphatase 342 H (39-117) U/L Troponin I High Sens 10.5 D (<3.5-35.0) ng/L B-Natriuretic Peptide (<100) pg/mL Total Protein 6.9 D (6.5-8.0) g/dL Albumin 3.5 (3.5-5.0) g/dL 09/06/21 09/06/21 Range/Units 17:31 17:31 WBC (4.8-10.8) X10*3/uL RBC (4.60-5.80) X10*6/uL Hgb (14.0-18.0) g/dl Hct (42-52) % MCV (80-98) fL MCH (27.0-33.0) pg MCHC (31.0-36.0) g/dl RDW (11.0-16.0) % Plt Count (160-400) X10*3/uL MPV (9.4-12.4) fL Immature Gran % (Auto) (0.0-0.4) % Neut % (Auto) (45-73) % Lymph % (Auto) (20-40) % [place] % (Auto) (2-11) % Eos % (Auto) (0-4) % Baso % (Auto) (0-2) % Lymph # (Auto) (1.2-4.9) X10*3/uL [place] # (Auto) (0.1-1.2) X10*3/uL Eos # (Auto) (0.0-0.4) X10*3/uL Baso # (Auto) (0.0-0.2) X10*3/uL Abs Immat Gran (auto) (0.00-0.03) X10*3/uL Absolute Neuts (auto) (2.0-8.3) X10*3/uL Absolute Nucleated RBC (0.0-0.012) X10*3/uL Nucleated RBC % (auto) (0.0-0.2) /100WBC PT 13.5 H (9.9-13.0) SEC INR 1.2 H (0.9-1.1) Sodium (135-145) mmol/L Potassium (3.3-5.1) mmol/L Chloride (96-108) mmol/L Carbon Dioxide (22-29) mmol/L Anion Gap (12-20) BUN (9-16) mg/dL Creatinine (0.5-1.4) mg/dL Estim Creat Clear Calc Estimated GFR Random Glucose (60-115) mg/dL Calcium (8.4-10.2) mg/dL Total Bilirubin (0.0-1.0) mg/dL Direct Bilirubin (0.0-0.5) mg/dL AST (5-37) U/L ALT (0-40) U/L Alkaline Phosphatase (39-117) U/L Troponin I High Sens 10.1 (<3.5-35.0) ng/L B-Natriuretic Peptide 140 H (<100) pg/mL Total Protein (6.5-8.0) g/dL Albumin (3.5-5.0) g/dL Discharge Plan Discharge Clinical Impression: Leg edema Patient Disposition: Elopement Prescriptions: No Action atorvastatin 80 mg Tablet 80 mg PO BEDTIME RF: 0 thiamine HCl (vitamin B1) 100 mg Tablet 100 mg PO DAILY RF: 0 mirtazapine 30 mg Tablet 30 mg PO BEDTIME RF: 0 metformin 1,000 mg Tablet 1,000 mg PO BID RF: 0 omeprazole 20 mg Capsule,Delayed Release(Dr/Ec) 20 mg PO DAILY RF: 0 aspirin 81 mg Tablet,Chewable 81 mg PO DAILY RF: 0 albuterol sulfate 90 mcg/actuation Hfa Aerosol Inhaler 2 puff INHALATION Q6H PRN (Reason: Wheezing) RF: 0 lisinopril 2.5 mg Tablet 2.5 mg PO DAILY RF: 0 nicotine (polacrilex) 4 mg Lozenge 4 mg BUCCAL Q2H PRN (Reason: Nicotine Cravings) RF: 0 ramelteon 8 mg Tablet 8 mg PO BEDTIME RF: 0 insulin glargine 100 unit/mL (3 mL) Insulin Pen 40 unit SUBCUT BEDTIME RF: 0 tiotropium bromide 2.5 mcg/actuation Mist 2 puff INHALATION DAILY RF: 0 empagliflozin 25 mg Tablet 12.5 mg PO DAILY RF: 0 semaglutide 1 mg/dose (4 mg/3 mL) Pen Injector 1 mg SUBCUT QWEEK RF: 0 nicotine 14 mg/24 hr Patch 24 Hour 14 mg transdermal DAILY Qty: 30 RF: 0 metoprolol succinate 50 mg tablet extended release 24 hr 50 mg PO DAILY Qty: 30 RF: 0 cefuroxime axetil 500 mg tablet 500 mg PO BID Qty: 20 RF: 0
--- NOTE | 2021-09-07 02:12 | PC.NURSE ---
PT NOTED TO HAVE ELOPED FROM ED @ [facility]OX 1815 ON 09/06. PT DID HAVE AN IV PLACED PRIOR TO PT ELOPING. SECURITY WAS MADE AWARE, ATTEMPTED TO FIND PT, WAS NOT ABLE, MULTIPLE PHONE CALLS MADE TO PT WITH NO ANSWER. SECURITY CALLED [facility] AND THEY SAID THERE WAS NO ANSWER AT THE HOME.
== END 2021-09-06 18:20 | disposition left against medical advice (07) ==
PROVIDERS: Emergency Provider Emergency Medicine Emergency Medical Services
DX: R60.0 Localized edema (principal); R06.02 Shortness of breath; Z79.899 Other long term (current) drug therapy; Z79.82 Long term (current) use of aspirin
CPT/HCPCS: 36415; 80048; 80076; 83880; 84484; 85025; 85610; 93005; 99283; 99284

== ENCOUNTER → 2021-09-16 11:28 | Outpatient (BNVA) | payer OTHER, SELFPAY | PROVIDERS: Visit Provider Surgery | DX: Z90.49 Acquired absence of other specified parts of digestive tract (principal); K81.9 Cholecystitis, unspecified; I25.10 Atherosclerotic heart disease of native coronary artery without angina pectoris; I10 Essential (primary) hypertension; E11.9 Type 2 diabetes mellitus without complications; E78.00 Pure hypercholesterolemia, unspecified; F17.210 Nicotine dependence, cigarettes, uncomplicated; Z95.1 Presence of aortocoronary bypass graft; Z79.84 Long term (current) use of oral hypoglycemic drugs; Z79.899 Other long term (current) drug therapy | CPT/HCPCS: 99212 ==